=== PATIENT | male | born 1945 | race Caucasian/White ===

== ENCOUNTER → 2017-11-21 | Outpatient (CLI) | payer MEDICARE, MEDICAID ==
[2017-03-17 13:13] VITALS: BMI 36.3
[~2017-11-21] MED LIST: AGGRENOX PO; AMOX-559 PO; ASP325 PO; ASPI-1471 PO; ASPI-757 PO; ASPI81TA86 PO; ASPIRIN; AUG875 PO; AZIT-1 PO; BETA60LO TP; CARI250T10 PO; CHOL100058 PO; CHOL4PAC14; CIPR-344 PO; CLIN300C99 PO; CLON1 PO; CLOT15CR62 TP; DIA5 PO; DILT120T PO; DILT240C4 PO; DILT30TA63 PO; DIPH-1 PO; DRON5CAP14 PO; DULO30CA35 PO; DULO60CA7; ESOM40CA42 PO; FLUC150T40 PO; GABA-547 PO; HYDR-3074 PO; HYDR25CA13 PO; HYDR2TAB74 PO; HYDROCODONE PO; HYOS0.1224 SL; INSU100C10 SQ; LANI SUBQ; LEVO-85 PO; LEVO25TA61 PO; LEVO750T27 PO; LEVO750T44 PO; LIB PO; LISI-362 PO; LOR1 PO; LOR5/325 PO; LORA-1458 PO; LORA-630 PO; LORA-636 PO; LOSA50TA72 PO; METH-278 PO; METHY10 PO; METR-160 PO; MORIR15 PO; MORP-18 PO; MORP-51 PO; MORP100T36 PO; MULT1TAB54 PO; NEXIUM PO; NO ROUTINE MEDS; NOVOLOG SUBQ; OMEP-125 PO; OND4 PO; ONDA4TAB9 PO; ONDA4TAB97 PO; OXYC-865 PO; OXYC10TA67 PO; OXYC15TA79 PO; OXYC80TA52 PO; PROM-110 PO; PROM25SU8 PR; PROM50TA23 PO; SUCR1ORA17 PO; SULF1TAB24 PO; TAM4 PO; TIZA4CAP3 PO; TOPI-121 PO; TRAZ-156 PO; VENL50TA22 PO; WARF-18 PO; ZOLP-358 PO; [UNRECOGNIZED DRUG - CODE]; [UNRECOGNIZED DRUG - CODE] PO; [UNRECOGNIZED DRUG - CODE] PO; atarax PO; phenergan PO
== END ==
LOC: RESP 20:51
PROVIDERS: ATTEND Internal Medicine
DX: G47.34 Idiopathic sleep related nonobstructive alveolar hypoventilation (principal); G47.30 Sleep apnea, unspecified; G47.61 Periodic limb movement disorder; G47.21 Circadian rhythm sleep disorder, delayed sleep phase type

== ENCOUNTER → 2017-11-25 | Outpatient (CLI) | payer MEDICARE, MEDICAID ==
[2017-03-17 13:13] VITALS: BMI 36.3
--- NOTE | 2017-11-25 17:01 | RADIOLOGY IMAGING REPORT ---
FACILITY: [facility] PATIENT NAME: Buster Kaur : 1945 MR: [id number] V: [id number] EXAM DATE: ORDERING PHYSICIAN: ADOLFO GREEN TECHNOLOGIST: Location: [facility] - [place] Patient: Buster Kaur : 1945 Visit/Account:[id number] Date of Sevice: 11/25/2017 EXAMINATION: CT Chest Without Contrast 11/25/2017 11:00 AM HISTORY: Interstitial lung disease TECHNIQUE: Spiral scan was obtained through the chest without contrast. One of the following dose optimization techniques was utilized in the performance of this exam: Autom ated exposure control; adjustment of the mA and/or kV according to the patient's size; or use of an i terative reconstruction technique. Specific details can be referenced in the facility's radiology C T exam operational policy. COMPARISON STUDIES: Chest x-ray 03/16/2017. FINDINGS: Lungs / pleura: Irregular linear markings in both upper lobes primarily abdomen above the hilar level with some scattered mildly irregular nodular foci within these areas of involvement more discretely on the right measuring up to about 8 mm. Lesser linear markings in both bases may simply be some sca rring or atelectasis. There is no honeycombing. No traction bronchiectasis. No significant groundg lass process. No pleural fluid or thickening. Mediastinum / santosh: negative Heart / pericardium: negative Vessels: Atherosclerosis includes coronary disease. Musculoskeletal / Body wall: Degenerative changes in the spine. Mild levoscoliotic thoracic curvatur e. Lymph node assessment: Small mediastinal lymph nodes. No pathologic adenopathy. Lower neck: negative Upper abdomen: Ascites. Heterogeneous fatty density in the liver. IMPRESSION: 1. Irregular somewhat nodular infiltrates involving primarily upper lobes more on the right than the left. This could represent an inflammatory pneumonitis or possibly infectious process. 2. Heterogeneous fatty liver density and upper abdominal ascites. Report Dictated By: Elton Dewey MD at 11/25/2017 4:50 PM Report E-Signed By: Elton Dewey MD at 11/25/2017 4:57 PM [id number]
== END ==
LOC: CT 01:38
PROVIDERS: ATTEND Internal Medicine
DX: R91.8 Other nonspecific abnormal finding of lung field (principal); K76.0 Fatty (change of) liver, not elsewhere classified; R18.8 Other ascites
CPT/HCPCS: 71250; 94060; 94726; 94729

== ENCOUNTER 2017-12-02 15:19 | Emergency (ER) | payer MEDICARE, MEDICAID ==
[2017-03-17 13:13] VITALS: Ht 182.9 cm; Wt 108.9 kg
[~2017-12-02] VITALS: Ht 182.9 cm; Wt 108.9 kg
[~2017-12-02 15:19] MED LIST changes: -SULF-198 PO
[2017-12-02] MEDS ORDERED: NS(*) 0.9% 1000 ML BAG 1,000 ML IV ONE (15:22)
--- NOTE | 2017-12-02 15:27 | ER Report ---
History and Physical Time Seen By MD: 15:23 (SHAYY RONDON DO) HPI/ROS CHIEF COMPLAINT: weakness HISTORY OF PRESENT ILLNESS: PT was seen by Dr. Morin yesterday for evaluation of increased generalized weakness. Dr. Morin office sent over papers stating pt has been having diarrhea and urinary incontinence. Pt had blood work done yesterday in office but was hemolyzed; was supposed to return today for repeat draw but pt was too weak to get to office. EMS called and pt brought to ed. On patient arrival pt stats that he has not had urinary incontinence but has had "pasty thick urine'. Pt states that he has not had diarrhea recently but has a hx of diarrhea. PT states he is weak and has been having trouble walking due to generalized weakness. Pt feels unsteady and weak. No fevers. Pt does c/o of abdominal pain. Pt has hx of chronic abd pain and treats his pain with alcohol at night. Pt states he has seen pain management in past [place] and they are useless. REVIEW OF SYSTEMS: Constitutional: No fever, no chills. Eyes: No discharge. ENT: No sore throat. Cardiovascular: No chest pain, no palpitations. Respiratory: No cough, no shortness of breath. Gastrointestinal: + abdominal pain, no vomiting, + hx diarrhea Genitourinary: No hematuria, + thick pasty urine Musculoskeletal: No back pain. Skin: No rashes. Neurological: No headache. (SHAYY RONDON DO) Allergies: Coded Allergies: cephalexin (Verified Allergy, Severe, ANAPHYLAXIS, 12/02/17) NSAIDS (Non-Steroidal Anti-Inflamma (Verified Allergy, Intermediate, ) tizanidine (Verified Allergy, Unknown, 12/02/17) tramadol (Verified Allergy, Unknown, GI DISTRESS, 12/02/17) Home Meds Active Scripts Sulfamethoxazole/Trimet 800-160 Mg Tab (BACTRIM DS TABLET) 1 Each Tablet, 1 TAB PO Q12H, #14 MG 0 Refills TAKE ONE TABLET BY MOUTH EVERY TWELVE HOURS Prov:JAVY MILLAN MD 12/02/17 Diltiazem Hcl (DILTIAZEM 24HR CD) 240 Mg Cap.er.24h, 240 MG PO QDAY, #30 CAP.SR.24H Prov:MANUEL MARTÍNEZ DO 03/19/17 Lorazepam (LORAZEPAM) 1 Mg Tab, 1 MG PO BID, #30 TAB Prov:MANUEL MARTÍNEZ DO 03/19/17 Levothyroxine Sodium (LEVOTHYROXINE SODIUM) 25 Mcg Tablet, 0.025 MG PO QDAY@06, #30 TAB Prov:MANUEL MARTÍNEZ DO 03/19/17 Duloxetine Hcl (CYMBALTA) 30 Mg Capsule.dr, 30 MG PO QDAY, #30 CAP Prov:MANUEL MARTÍNEZ DO 03/19/17 Aspirin (ASPIRIN EC) 81 Mg Tablet.dr, 81 MG PO QDAY, #30 TAB Prov:MANUEL MARTÍNEZ DO 03/19/17 Reported Medications Insulin Glargine (LANTUS) 100 Unit/Ml Soln, 6 UNIT SUBQ HS, ML 02/17/17 Discontinued Reported Medications Losartan Potassium (LOSARTAN POTASSIUM) 50 Mg Tablet, 50 MG PO QDAY 02/17/17 Discontinued Scripts Warfarin Sodium (WARFARIN SODIUM) 5 Mg Tablet, 5 MG PO QDAY, #30 TAB Prov:MANUEL MARTÍNEZ DO 03/19/17 Past Medical/Surgical History PMhx: adenomatous intestinal polyps, hypercholesterolemia, hyothyroid, anxiety, afib, epilepsy, htn, dm, chronic pain, hx narcotic abuse, diarrhea Pshx: knee arthrosplasty, conolscopy with polyp removal (SHAYY RONDON DO) Reviewed Nurses Notes: Yes Old Medical Records Reviewed: Yes (SHAYY RONDON DO) Hx Smoking: Yes Smoking Status: Former Smoker Exposure to Second Hand Smoke?: Yes Hx Substance Use Disorder: No Hx Alcohol Use: Yes (2 Scotch whisky drinks a day (2 ounces each)) (SHAYY RONDON DO) Constitutional Vital Sign - Last 24 Hours 12/02/17 12/02/17 12/02/17 12/02/17 15:21 15:23 15:34 15:49 Temp 98.2 Pulse 90 95 93 Resp 14 15 15 B/P (MAP) 136/84 (101) 136/84 Pulse Ox 90 89 90 O2 Delivery Room Air 12/02/17 12/02/17 12/02/17 12/02/17 15:54 16:00 16:09 16:24 Pulse 91 90 90 Resp 16 16 13 B/P (MAP) 153/80 (104) Pulse Ox 93 91 91 12/02/17 16:29 Pulse 91 Resp 15 Pulse Ox 90 Intake and Output 12/02/17 12/02/17 12/03/17 15:00 23:00 07:00 Intake Total 1000 ml Balance 1000 ml (JAVY MILLAN MD) Physical Exam General Appearance: The patient is alert, has no immediate need for airway protection and no signs of toxicity. Eyes: Pupils equal and round no pallor or injection, EOMI ENT: no pharyngeal erythema or exudates, Mucous membranes are moist Respiratory: There are no retractions, lungs are clear to auscultation. Cardiovascular: Regular rate and rhythm. pulses are equal and symmetrical Gastrointestinal: Abdomen distended and tender diffusely, no masses, bowel sounds normal, +guarding, + ascites Neurological: Cranial nerves II-XII grossly intact, no sensory or motor loss Skin: Warm and dry, no rashes. Musculoskeletal: Neck is supple non tender, no vertebral tenderness Extremities are nontender, non swollen and have full range of motion. DIFFERENTIAL DIAGNOSIS: After history and physical exam differential diagnosis was considered for uti, dehydration, colitis, generalized weakness, cirrhosis (LAURORA,SHAYY V DO) Medical Decision Making Data Points Result Diagram: 12/02/17 1535 12/02/17 1535 Laboratory Hematology Test 12/02/17 15:35 12/02/17 17:04 Red Blood Count 3.96 M/uL (4.00-5.60) Mean Corpuscular Volume 108.1 fL (80.0-96.0) Mean Corpuscular Hemoglobin 38.3 pg (26.0-33.0) Mean Corpuscular Hemoglobin Concent 35.4 g/dL (32.0-36.0) Red Cell Distribution Width 14.9 % (11.5-14.5) Mean Platelet Volume 8.6 fL (7.2-11.1) Neutrophils (%) (Auto) 77.6 % (39.4-72.5) Lymphocytes (%) (Auto) 12.8 % (17.6-49.6) Monocytes (%) (Auto) 7.5 % (4.1-12.4) Eosinophils (%) (Auto) 1.4 % (0.4-6.7) Basophils (%) (Auto) 0.7 % (0.3-1.4) Nucleated RBC Relative Count (auto) 0.0 /100WBC Neutrophils # (Auto) 7.2 K/uL (2.0-7.4) Lymphocytes # (Auto) 1.2 K/uL (1.3-3.6) Monocytes # (Auto) 0.7 K/uL (0.3-1.0) Eosinophils # (Auto) 0.1 K/uL (0.0-0.5) Basophils # (Auto) 0.1 K/uL (0.0-0.1) Nucleated RBC Absolute Count (auto) 0.00 K/uL Peripheral Blood Smear Y/N Prothrombin Time 14.8 seconds (12.0-14.4) Prothromb Time International Ratio 1.15 Activated Partial Thromboplast Time 35 seconds (23-35) Sodium Level 130 mmol/L (137-145) Potassium Level 3.3 mmol/L (3.5-5.0) Chloride Level 97 mmol/L (98-107) Carbon Dioxide Level 21 mmol/L (22-30) Blood Urea Nitrogen 5 mg/dl (9-21) Creatinine 0.90 mg/dl (0.66-1.25) Glomerular Filtration Rate Calc > 60.0 Random Glucose 159 mg/dl (75-110) Calcium Level 8.4 mg/dl (8.4-10.2) Magnesium Level 1.6 mg/dl (1.7-2.2) Total Bilirubin 5.2 mg/dl (0.2-1.3) Aspartate Amino Transf (AST/SGOT) 139 U/L (0-35) Alanine Aminotransferase (ALT/SGPT) 64 U/L (0-56) Alkaline Phosphatase 549 U/L (0-126) Total Protein 7.9 gm/dl (6.3-8.2) Albumin 3.4 g/dl (3.5-5.0) Lipase 118 U/L (23-300) Serum Alcohol 35 mg/dl Urine Color Yellow Urine Clarity Turbid Urine pH 6.0 pH (4.8-9.5) Urine Specific [place] 1.018 Urine Protein 30 mg/dL (NEGATIVE) Urine Glucose (UA) Negative mg/dL (NEGATIVE) Urine Ketones Negative mg/dL (NEGATIVE) Urine Blood Small (NEGATIVE) Urine Nitrite Negative (NEGATIVE) Urine Bilirubin Negative (NEGATIVE) Urine Urobilinogen 4.0 mg/dL (0.2-1.9) Urine Leukocyte Esterase Large (NEGATIVE) Urine RBC 12 /HPF (0-2/HPF) Urine WBC 5018 /HPF (0-5/HPF) Urine WBC Clumps Many /HPF Urine Squamous Epithelial Cells Many /LPF (</=FEW) Urine Bacteria Negative /HPF (NONE-FEW) Urine Mucus None /HPF (NONE-FEW) Chemistry Test 12/02/17 15:35 12/02/17 17:04 White Blood Count 9.2 k/uL (4.5-11.0) Red Blood Count 3.96 M/uL (4.00-5.60) Hemoglobin 15.2 g/dL (14.0-18.0) Hematocrit 42.8 % (42.0-52.0) Mean Corpuscular Volume 108.1 fL (80.0-96.0) Mean Corpuscular Hemoglobin 38.3 pg (26.0-33.0) Mean Corpuscular Hemoglobin Concent 35.4 g/dL (32.0-36.0) Red Cell Distribution Width 14.9 % (11.5-14.5) Platelet Count 159 K/uL (150-450) Mean Platelet Volume 8.6 fL (7.2-11.1) Neutrophils (%) (Auto) 77.6 % (39.4-72.5) Lymphocytes (%) (Auto) 12.8 % (17.6-49.6) Monocytes (%) (Auto) 7.5 % (4.1-12.4) Eosinophils (%) (Auto) 1.4 % (0.4-6.7) Basophils (%) (Auto) 0.7 % (0.3-1.4) Nucleated RBC Relative Count (auto) 0.0 /100WBC Neutrophils # (Auto) 7.2 K/uL (2.0-7.4) Lymphocytes # (Auto) 1.2 K/uL (1.3-3.6) Monocytes # (Auto) 0.7 K/uL (0.3-1.0) Eosinophils # (Auto) 0.1 K/uL (0.0-0.5) Basophils # (Auto) 0.1 K/uL (0.0-0.1) Nucleated RBC Absolute Count (auto) 0.00 K/uL Peripheral Blood Smear Y/N Prothrombin Time 14.8 seconds (12.0-14.4) Prothromb Time International Ratio 1.15 Activated Partial Thromboplast Time 35 seconds (23-35) Glomerular Filtration Rate Calc > 60.0 Calcium Level 8.4 mg/dl (8.4-10.2) Magnesium Level 1.6 mg/dl (1.7-2.2) Total Bilirubin 5.2 mg/dl (0.2-1.3) Aspartate Amino Transf (AST/SGOT) 139 U/L (0-35) Alanine Aminotransferase (ALT/SGPT) 64 U/L (0-56) Alkaline Phosphatase 549 U/L (0-126) Total Protein 7.9 gm/dl (6.3-8.2) Albumin 3.4 g/dl (3.5-5.0) Lipase 118 U/L (23-300) Serum Alcohol 35 mg/dl Urine Color Yellow Urine Clarity Turbid Urine pH 6.0 pH (4.8-9.5) Urine Specific [place] 1.018 Urine Protein 30 mg/dL (NEGATIVE) Urine Glucose (UA) Negative mg/dL (NEGATIVE) Urine Ketones Negative mg/dL (NEGATIVE) Urine Blood Small (NEGATIVE) Urine Nitrite Negative (NEGATIVE) Urine Bilirubin Negative (NEGATIVE) Urine Urobilinogen 4.0 mg/dL (0.2-1.9) Urine Leukocyte Esterase Large (NEGATIVE) Urine RBC 12 /HPF (0-2/HPF) Urine WBC 5018 /HPF (0-5/HPF) Urine WBC Clumps Many /HPF Urine Squamous Epithelial Cells Many /LPF (</=FEW) Urine Bacteria Negative /HPF (NONE-FEW) Urine Mucus None /HPF (NONE-FEW) Coagulation Test 12/02/17 15:35 Prothrombin Time 14.8 seconds Prothromb Time International Ratio 1.15 Activated Partial Thromboplast Time 35 seconds Toxicology Test 12/02/17 15:35 Serum Alcohol 35 mg/dl Urinalysis Test 12/02/17 17:04 Urine Color Yellow Urine Clarity Turbid Urine pH 6.0 pH (4.8-9.5) Urine Specific [place] 1.018 Urine Protein 30 mg/dL (NEGATIVE) Urine Glucose (UA) Negative mg/dL (NEGATIVE) Urine Ketones Negative mg/dL (NEGATIVE) Urine Blood Small (NEGATIVE) Urine Nitrite Negative (NEGATIVE) Urine Bilirubin Negative (NEGATIVE) Urine Urobilinogen 4.0 mg/dL (0.2-1.9) Urine Leukocyte Esterase Large (NEGATIVE) Urine RBC 12 /HPF (0-2/HPF) Urine WBC 5018 /HPF (0-5/HPF) Urine WBC Clumps Many /HPF Urine Squamous Epithelial Cells Many /LPF (</=FEW) Urine Bacteria Negative /HPF (NONE-FEW) Urine Mucus None /HPF (NONE-FEW) (JAVY MILLAN MD) ED Course/Re-evaluation ED Course [address] Millan pending CT read and UA. I have replaced magnesium and potassium. I suspect pt may need admission for ascites, uti and weakness but will need to await labs and ct. Decision to Disposition Date: Dec 02, 2017 Decision to Disposition Time: 17:00 (SHAYY RONDON DO) ED Course 12/02/2017 6:01:16 pm leading his antibiotics at this time I went again and had a long discussion with both the patient and spouse of my medical recommendation that he be admitted to the hospital for his urinary tract infection and weakness. He adamantly refuses to be admitted at this time. This conversation was witnessed by the patient's nurse Russel Wilburn. I did state I will call prescription for antibiotics in for him and that he should follow up tomorrow with Dr. Juanito Altman and that if at any point in time he changes his mind about admission he should return to the emergency department. Patient has agreed to sign AMA form. Decision to Disposition Date: Dec 02, 2017 Decision to Disposition Time: 18:07 Turned Over 12/02/2017 5:28:59 pm accepts care of the patient from Dr. So at 1700. Briefly this is a 72-year-old male who is a chronic alcoholic with what appears to be alcoholic cirrhosis. He is been having increased weakness over the past few days with history of recent falls. Also complaining of difficulty with urination he also has a history of chronic abdominal pain. Workup in the emergency department shows the patient does have ascites by CT scan as well as what appears to be a nodular liver indicating cirrhosis. Patient does have elevated LFTs and bilirubin. Urinalysis is positive for leukocyte esterase, large microscopic white blood cells and red cells negative bacteria large epithelial cells and negative nitrites. Given the patient's symptoms will empirically treat for urinary tract infection pending urinary culture results. Patient further is also having unsteady gait which could indicate [place]ie related to the patient's alcohol use and abuse. Plan will be to give 100 mg of IV thiamine. Had about a 5 minute discussion with the patient on my desire to admit him medically for both treatment of urinary tract infection as well as for her weakness and physical therapy evaluation. Patient is against this time I did order some IV antibiotics to treat the urinary tract infection and said that I would be back in once complete to try to convince him to stay. Patient's is also pushing for the patient to stay in the hospital. Patient seems as if he is adamant against possible admission at this time. If that is the case I will have him sign out against medical advice we will put in a prescription for Bactrim for 7 days to treat the urinary tract infection and will have him follow -up with his primary care provider in 24 hours. We'll attempt to contact patient 's primary care provider to discuss his ER course and likely that he will sign out against medical advice. (JAVY MILLAN MD) Depart Departure Latest Vital Signs Vital Signs Date Time Temp Pulse Resp B/P (MAP) Pulse Ox O2 Delivery O2 Flow Rate FiO2 12/02/17 16:29 91 15 90 12/02/17 16:00 153/80 (104) 12/02/17 15:23 98.2 Room Air (JAVY MILLAN MD) Impression: Primary Impression: Urinary tract infection Additional Impressions: Weakness Ascites due to alcoholic cirrhosis Electrolyte abnormality Condition: Condition Unchanged (signed out ama) Disposition: AGAINST MED ADV / DISCONT CARE New Scripts Sulfamethoxazole/Trimet 800-160 Mg Tab (BACTRIM DS TABLET) 1 Each Tablet 1 TAB PO Q12H, #14 MG 0 Refills TAKE ONE TABLET BY MOUTH EVERY TWELVE HOURS Prov: JAVY MILLAN MD 12/02/17 Patient Instructions: Urinary Tract Infection in Men (DC), Weakness (ED) Additional Instructions: If you change your mind at any time regarding your admission tonight you should return to the emergency department immediately. If he develop any new or concerning symptoms he should be reevaluated by her primary care provider in the emergency department. You were called in a prescription for antibiotics for a urinary tract infection please pick them up and initiate them tomorrow and take as directed until complete. Also call Dr. Morin's office tomorrow to schedule follow-up within 24 hours. Problem Qualifiers Primary Impression: Urinary tract infection Urinary tract infection type: site unspecified Hematuria presence: without hematuria Qualified Codes: N39.0 - Urinary tract infection, site not specified SHAYY RONDON DO Dec 02, 2017 15:27 JAVY MILLAN MD Dec 02, 2017 17:39
[2017-12-02] MEDS ORDERED: IOPAMIDOL 76% 75 ML INFUS BTL 75 ML ONE (15:57)
[2017-12-02] MEDS ORDERED: NS 0.9% 50 ML VIAL 50 ML ONE (15:57)
[2017-12-02 16:04] LABS: INR 1.15
[2017-12-02 16:06] LABS: PLATELET COUNT, AUTOMATED 159 K/uL (150-450)
[2017-12-02] MEDS ORDERED: LR(*) 1000 ML BAG 1,000 ML IV ONE (16:30)
--- NOTE | 2017-12-02 17:07 | RADIOLOGY IMAGING REPORT ---
FAC[facility] PATIENT NAME: Buster Kaur : 1945 MR: [id number] V: [id number] EXAM DATE: ORDERING PHYSICIAN: SHAYY RONDON TECHNOLOGIST: Location: [facility] Patient: Buster Kaur : 1945 Visit/Account:[id number] Date of Sevice: 12/02/2017 EXAMINATION: CT abdomen and pelvis with IV contrast HISTORY: Abdominal pain. Diarrhea. TECHNIQUE: Axial CT images of the abdomen and pelvis were obtained with IV contrast, with coronal a nd sagittal 2D reconstructed images. One of the following dose optimization techniques was utilized in the performance of this exam: Autom ated exposure control; adjustment of the mA and/or kV according to the patient's size; or use of an i terative reconstruction technique. Specific details can be referenced in the facility's radiology C T exam operational policy. Contrast: 75 mL of IV [id number]. COMPARISON: 10/02/2015. FINDINGS: Liver: Marked hepatic steatosis with heterogeneous liver attenuation. No discrete focal liver mass b y CT. The liver margin has a mildly lobular contour which has progressed since the prior CT and could relate to underlying cirrhosis. Gallbladder and bile ducts: Unremarkable by CT. No calcified gallstones. No bile duct dilatation. Spleen: The spleen is borderline enlarged, measuring 14 cm in length. The spleen previously measured 12.5 cm. The spleen enhances normally. Pancreas: Negative. Adrenal glands: Negative. Kidneys: Negative. No hydronephrosis or urinary calculi. Bowel and peritoneum: The small bowel and colon are normal in caliber. No bowel obstruction. No loca lized bowel wall thickening. Unremarkable appendix in the right lower abdomen. Moderate volume of abd ominal ascites. No free intraperitoneal air. Small hiatal hernia. Pelvic structures: Negative. Lymph node assessment: Negative. Vessels: Moderate vascular calcifications. Normal caliber abdominal aorta. The IVC is patent. The he patic veins, portal veins, and portal tributaries are patent. Musculoskeletal: No acute osseous findings. Multilevel degenerative changes throughout the spine. Body wall: Negative. Lung bases: Negative. IMPRESSION: 1. Marked hepatic steatosis. The liver has a mild lobulated contour which has progressed and could be compatible with underlying cirrhosis. There is borderline splenomegaly with moderate abdominal ascit es. 2. No other acute intra-abdominal findings. 3. The small bowel and colon are normal in caliber. 4. Small hiatal hernia. Report Dictated By: Jakob Mackey MD at 12/02/2017 4:57 PM Report E-Signed By: Jakob Mackey MD at 12/02/2017 5:03 PM WSN:[id number]
[2017-12-02] MEDS ORDERED: POTASSIUM CHL 20 MEQ TABCR PO ONE (17:15)
[2017-12-02] MEDS ORDERED: MAGNESIUM SUL* 2 GM/50 ML IVPB 50 ML IVPB ONE (17:15)
[2017-12-02] MEDS ORDERED: THIAMINE HCL 200 MG/2 ML INJ IVP ONE (17:25)
[2017-12-02] MEDS ORDERED: LEVOFLOXACIN/D5W 750 MG/150 ML 150 ML IVPB ONE (17:30)
[2017-12-02] MEDS ORDERED: SULF-198 PO (18:06)
== END 2017-12-02 19:47 | disposition left against medical advice (07) ==
LOC: ER 15:31
DX: N39.0 Urinary tract infection, site not specified (principal); R79.89 Other specified abnormal findings of blood chemistry; R53.1 Weakness; K70.31 Alcoholic cirrhosis of liver with ascites
CPT/HCPCS: 74177; 81001; 82140; 83690; 83735; 84443; 85025; 85610; 85730; 87088; 96361; 96365; 96366; 96368; 99284; A9270; G0480; J1956; J3411; J3475; J7030; J7050; J7120; Q9967; 80320; 82040; 82247; 82310; 82374; 82435; 82565; 82947; 84075; 84132; 84155; 84295; 84450; 84460; 84520; 87077; 87186

== ENCOUNTER → 2017-12-02 | Outpatient (CLI) | payer MEDICARE, MEDICAID ==
[2017-03-17 13:13] VITALS: BMI 36.3
[~2017-12-02] MED LIST changes: +SULF-198 PO
== END ==
LOC: AMB 14:58
PROVIDERS: ATTEND Nurse Practitioner
DX: Z76.89 Persons encountering health services in other specified circumstances (principal)
CPT/HCPCS: A0425; A0429

== ENCOUNTER 2017-12-15 16:39 | Inpatient (IN) | payer MEDICARE, MEDICAID ==
[~2017-12-15] VITALS: Ht 182.9 cm; Wt 124.3 kg
[~2017-12-15 16:39] MED LIST changes: -HYOS0.1225 PO; -SPIR25TA78 PO; -VITA-175 PO; +WARF-18 PO; -WARF5TAB23 PO
[2017-12-15] MEDS ORDERED: HYOS0.1225 PO (16:47)
--- NOTE | 2017-12-15 16:47 | ER Report ---
History and Physical Time Seen By MD: 16:46 Hx. of Stated Complaint: "BEEN ALTERED TODAY". 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 Patient states that over the last 3 days he's noticed an increase in yellowing of his skin. Patient was seen here on December 02 treated for urinary tract infection. He did follow up with Dr. Morin last week and no medication changes or changes in plan of care. Patient states that over the last several days he's had yellowish, loose stools too, prior to this he was constipated, his gave him stool softeners. Patient also states that he's had decreased urinary output the last several days the urine color is very dark. Patient denies chest pain or shortness of breath, aches, chills, nausea, vomiting. Patient states he does have continued chronic abdominal pain. Upon arrival patient is asking for pain medications. Patient also states that his last drink was about 1:00pm today a short glass of vodka. REVIEW OF SYSTEMS: Constitutional: No fever, no chills. Eyes: No discharge. ENT: No sore throat. Cardiovascular: No chest pain, no palpitations. Respiratory: No cough, no shortness of breath. Gastrointestinal: As above. Genitourinary: As above. Musculoskeletal: No back pain. Skin: As above. Neurological: No headache. (HENRY SALAZARPDEISY) Allergies: Coded Allergies: cephalexin (Verified Allergy, Severe, ANAPHYLAXIS, 12/02/17) NSAIDS (Non-Steroidal Anti-Inflamma (Verified Allergy, Intermediate, ) tizanidine (Verified Allergy, Unknown, 12/02/17) tramadol (Verified Allergy, Unknown, GI DISTRESS, 12/02/17) Home Meds Active Scripts Vitamin B Complex (B COMPLEX) 1 Each Tablet, 1 EACH PO DAILY, #30 TAB 1 Refill Prov:ARNULFO ALCANTARA MD 12/17/17 Spironolactone (SPIRONOLACTONE) 25 Mg Tablet, 25 MG PO BID, #60 TAB 0 Refills Prov:ARNULFO ALCANTARA MD 12/17/17 Diltiazem Hcl (DILTIAZEM 24HR CD) 240 Mg Cap.er.24h, 240 MG PO QDAY, #30 CAP.SR.24H Prov:MAURICIOMANUEL DE LA GARZA 03/19/17 Lorazepam (LORAZEPAM) 1 Mg Tab, 1 MG PO BID, #30 TAB Prov:MAURICIOMANUEL DE LA GARZA 03/19/17 Levothyroxine Sodium (LEVOTHYROXINE SODIUM) 25 Mcg Tablet, 0.025 MG PO QDAY@06, #30 TAB Prov:MAURICIOMANUEL DE LA GARZA 03/19/17 Aspirin (ASPIRIN EC) 81 Mg Tablet., 81 MG PO QDAY, #30 TAB Prov:MAURICIOMANUEL DO 03/19/17 Reported Medications Hyoscyamine Sulfate (HYOSCYAMINE SULFATE) 0.125 Mg Tablet, 0.125 MG PO 12/15/17 Insulin Glargine (LANTUS) 100 Unit/Ml Soln, 6 UNIT SUBQ HS, ML 02/17/17 Discontinued Scripts Sulfamethoxazole/Trimet 800-160 Mg Tab (BACTRIM DS TABLET) 1 Each Tablet, 1 TAB PO Q12H, #14 MG 0 Refills TAKE ONE TABLET BY MOUTH EVERY TWELVE HOURS Prov:JAVY MOMIN MD 12/02/17 Duloxetine Hcl (CYMBALTA) 30 Mg Capsule., 30 MG PO QDAY, #30 CAP Prov:MANUEL MARTÍNEZ 03/19/17 Past Medical/Surgical History Patient has a past medical and surgical history of 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 (HENRY SALAZAR-KAUSHIK) Reviewed Nurses Notes: Yes (HENRY SALAZAR) Hx Smoking: Yes Smoking Status: Former Smoker Exposure to Second Hand Smoke?: Yes Hx Substance Use Disorder: No Hx Alcohol Use: Yes (2 Scotch whisky drinks a day (2 ounces each)) (HENRY SALAZAR-KAUSHIK) Constitutional Vital Sign - Last 24 Hours 12/15/17 12/15/17 12/15/17 12/15/17 16:40 16:43 16:54 17:09 Temp 98.3 Pulse 83 82 82 Resp 18 14 14 B/P (MAP) 151/76 151/76 (101) Pulse Ox 94 98 93 O2 Delivery Room Air 12/15/17 12/15/17 12/15/17 12/15/17 17:24 17:29 17:30 17:44 Pulse 80 78 ??? Resp 13 11 B/P (MAP) 138/74 (95) Pulse Ox 95 93 12/15/17 12/15/17 12/15/17 12/15/17 17:46 17:59 18:00 18:14 Pulse 83 83 Resp 12 12 B/P (MAP) 167/91 (116) 153/85 (107) Pulse Ox 93 93 12/15/17 12/15/17 12/15/17 12/15/17 18:29 18:30 18:44 18:59 Pulse 84 80 83 Resp 12 13 13 B/P (MAP) 148/79 (102) Pulse Ox 92 93 94 (ALYSIA MOY MD) Physical Exam General Appearance: The patient is alert, has no immediate need for airway protection and no signs of toxicity. Eyes: Pupils equal and round no pallor or injection. Scleral icterus. EOM's intact. ENT, Mouth: Mucous membranes are moist. Geographic tongue. Respiratory: There are no retractions, lungs are clear to auscultation, but diminished in the upper armendariz.. Cardiovascular: Regular rate and rhythm, no murmurs, clicks or rubs. Gastrointestinal: Abdomen is very round, tender along costal margin bilaterally , but worse on the right. No masses, distant, hypoactive bowel sounds with tinkles. Neurological: Alert and oriented 4. Moving all extremities. Following all commands. No focal neuro deficits. Skin: Warm and dry, no rashes. Systemic jaundice. Musculoskeletal: Neck is supple non tender. Extremities 1+ pitting edema to the lower extremities up to the calf. Full range of motion. DIFFERENTIAL DIAGNOSIS: After history and physical exam differential diagnosis was considered for ascites, jaundice, liver failure, kidney failure, cirrhosis of the liver. (HENRY SALAZAR-) Medical Decision Making Data Points Result Diagram: 12/16/1745 12/16/17 0545 Laboratory Hematology Test 12/15/17 17:14 12/15/17 17:24 Prothrombin Time 15.2 seconds (12.0-14.4) Prothromb Time International Ratio 1.19 Activated Partial Thromboplast Time 37 seconds (23-35) Amylase Level 66 U/L (0-110) Lipase 99 U/L (23-300) Urine Color Sima Urine Clarity Clear Urine pH 6.0 pH (4.8-9.5) Urine Specific [place] 1.015 Urine Protein Negative mg/dL (NEGATIVE) Urine Glucose (UA) Negative mg/dL (NEGATIVE) Urine Ketones Negative mg/dL (NEGATIVE) Urine Blood Negative (NEGATIVE) Urine Nitrite Negative (NEGATIVE) Urine Bilirubin Small (NEGATIVE) Urine Urobilinogen 4.0 mg/dL (0.2-1.9) Urine Leukocyte Esterase Negative (NEGATIVE) Urine RBC <1 /HPF (0-2/HPF) Urine WBC 4 /HPF (0-5/HPF) Urine Squamous Epithelial Cells None /LPF (NONE-FEW) Urine Bacteria Negative /HPF (NONE-FEW) Urine Mucus None /HPF (NONE-FEW) Chemistry Test 12/15/17 17:14 12/15/17 17:24 Prothrombin Time 15.2 seconds (12.0-14.4) Prothromb Time International Ratio 1.19 Activated Partial Thromboplast Time 37 seconds (23-35) Amylase Level 66 U/L (0-110) Lipase 99 U/L (23-300) Urine Color Sima Urine Clarity Clear Urine pH 6.0 pH (4.8-9.5) Urine Specific [place] 1.015 Urine Protein Negative mg/dL (NEGATIVE) Urine Glucose (UA) Negative mg/dL (NEGATIVE) Urine Ketones Negative mg/dL (NEGATIVE) Urine Blood Negative (NEGATIVE) Urine Nitrite Negative (NEGATIVE) Urine Bilirubin Small (NEGATIVE) Urine Urobilinogen 4.0 mg/dL (0.2-1.9) Urine Leukocyte Esterase Negative (NEGATIVE) Urine RBC <1 /HPF (0-2/HPF) Urine WBC 4 /HPF (0-5/HPF) Urine Squamous Epithelial Cells None /LPF (NONE-FEW) Urine Bacteria Negative /HPF (NONE-FEW) Urine Mucus None /HPF (NONE-FEW) Coagulation Test 12/15/17 17:14 Prothrombin Time 15.2 seconds Prothromb Time International Ratio 1.19 Activated Partial Thromboplast Time 37 seconds Urinalysis Test 12/15/17 17:24 Urine Color Sima Urine Clarity Clear Urine pH 6.0 pH (4.8-9.5) Urine Specific [place] 1.015 Urine Protein Negative mg/dL (NEGATIVE) Urine Glucose (UA) Negative mg/dL (NEGATIVE) Urine Ketones Negative mg/dL (NEGATIVE) Urine Blood Negative (NEGATIVE) Urine Nitrite Negative (NEGATIVE) Urine Bilirubin Small (NEGATIVE) Urine Urobilinogen 4.0 mg/dL (0.2-1.9) Urine Leukocyte Esterase Negative (NEGATIVE) Urine RBC <1 /HPF (0-2/HPF) Urine WBC 4 /HPF (0-5/HPF) Urine Squamous Epithelial Cells None /LPF (NONE-FEW) Urine Bacteria Negative /HPF (NONE-FEW) Urine Mucus None /HPF (NONE-FEW) (ALYSIA MOY MD) EKG/Imaging Imaging PATIENT NAME: Buster Kaur : 1945 MR: [id number] V: [id number] EXAM DATE: ORDERING PHYSICIAN: HENRY SALAZAR TECHNOLOGIST: Location: [facility] - [place] Patient: Buster Kaur : 1945 Visit/Account:[id number] Date of Sevice: 12/15/2017 Exam type: CHEST PA AND LAT History: abdominal pain, jaundiced Comparison: March 16, 2017. Findings: Patient is rotated towards the right. Chronic interstitial changes are again noted throughout the lungs. There is mild increased peribronchial thickening. Mild fullness of the pulmonary vascular markings. The cardiac silhouette is normal in size. There are mild spondylotic changes thoracic spine IMPRESSION: 1. Mild fullness of the pulmonary vascular markings which may be secondary to mild pulmonary edema. 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 A history of physical were obtained. Differential diagnoses were considered. An IV is started. A CBC, CMP, amylase, lipase, PT and INR, PTT, ammonia and UA were obtained. CBC showing an increase in his MCV at 111.7, chemistry showing sodium of 123, total bilirubin up from his previous visit now 11.4, AST 191, ALT 74, alkaline phosphatase 669. Urine showing bilirubin. Two-view chest x-ray showing mild pulmonary edema. I did review these results with the patient and did tell him that the changes in his lab studies from his last visit is concerning and I feel that he needs to be admitted to the hospital. The patient and his are in agreement with admission to the hospital. I did speak with Dr. Bull, as noted below and he is agreed to admit the patient into his services. The patient and his had no other questions or concerns at this time and were admitted to the medical surgical floor. 12/15/2017 6:56:59 pm I did speak with Dr. Bull, the hospitalist and discussed the patient's case with him and he agreed to admit the patient to his services for hyponatremia as well as jaundice. Decision to Disposition Date: Dec 15, 2017 Decision to Disposition Time: 18:54 (HENRY SALAZAR INSTANT POWDER SUPERVISOR-BC) Depart Departure Latest Vital Signs Vital Signs Date Time Temp Pulse Resp B/P (MAP) Pulse Ox O2 Delivery O2 Flow Rate FiO2 12/15/17 18:59 83 13 94 12/15/17 18:30 148/79 (102) 12/15/17 16:40 98.3 Room Air (ALYSIA MOY MD) Impression: Primary Impression: Hyponatremia Additional Impressions: Jaundice Hyperbilirubinemia Pulmonary edema Condition: Condition Unchanged Disposition: Admitted from ER New Scripts Vitamin B Complex (B COMPLEX) 1 Each Tablet 1 EACH PO DAILY, #30 TAB 1 Refill Prov: ARNULFO ALCANTARA MD 12/17/17 Spironolactone (SPIRONOLACTONE) 25 Mg Tablet 25 MG PO BID, #60 TAB 0 Refills Prov: ARNULFO ALCANTARA MD 12/17/17 RECOVERY ROOM NURSE/PA consult with MD: Verbally (ALYSIA MOY MD) Problem Qualifiers Additional Impressions: Pulmonary edema Chronicity: chronic Qualified Codes: J81.1 - Chronic pulmonary edema HENRY SALAZAR- Dec 15, 2017 16:47 ALYSIA MOY MD Dec 15, 2017 17:11
[2017-12-15 17:24] LABS: PLATELET COUNT, AUTOMATED 194 K/uL (150-450)
[2017-12-15 17:34] LABS: INR 1.19
--- NOTE | 2017-12-15 18:05 | RADIOLOGY IMAGING REPORT ---
FACILITY: [facility] PATIENT NAME: Buster Kaur : 1945 MR: [id number] V: [id number] EXAM DATE: ORDERING PHYSICIAN: HENRY SALAZAR TECHNOLOGIST: Location: [facility] Patient: Buster Kaur : 1945 Visit/Account:[id number] Date of Sevice: 12/15/2017 Exam type: CHEST PA AND LAT History: abdominal pain, jaundiced Comparison: March 16, 2017. Findings: Patient is rotated towards the right. Chronic interstitial changes are again noted throughout the yuridia ngs. There is mild increased peribronchial thickening. Mild fullness of the pulmonary vascular blanca ings. The cardiac silhouette is normal in size. There are mild spondylotic changes thoracic spine IMPRESSION: 1. Mild fullness of the pulmonary vascular markings which may be secondary to mild pulmonary edema. Chronic initial changes noted throughout the lungs Mild increased peribronchial thickening which could represent an acute peribronchial inflammatory pro cess Report Dictated By: Sparkle Estrada MD at 12/15/2017 5:59 PM Report E-Signed By: Sparkle Estrada MD at 12/15/2017 6:01 PM WSN:[email or web address]
[2017-12-15 20:00] VITALS: BP 147/81
[2017-12-15] MEDS ORDERED: FUROSEMIDE 40 MG/4 ML VIAL IVP ONE (21:30)
[2017-12-15] MEDS ORDERED: ONDANSETRON 4 MG/2 ML VIAL IVP PRN (21:30)
[2017-12-15] MEDS ORDERED: INSULIN HUM REG 100 UN/ML 3 ML VIAL SC PRN (21:30)
[2017-12-15] MEDS: LORazepam 1 MG TAB PO SCH (22:24)
--- NOTE | 2017-12-15 22:41 | History & Physical ---
History of Present Illness Chief Complaint Yellow discoloration of skin and generalized weakness History of Present Illness Mr. Kaur is a 72-year-old male with PMH of DM-II on Lantus 6 units/day, A.fib on Diltiazem, Liver Cirrhosis likely from Alcohol abuse and he was not on Diuretics who presents to the emergency department via EMS for changes in his skin color. Patient states that over the last 3 days he's noticed an increase in yellowing of his skin. Patient was seen here on December 02 treated for urinary tract infection. He did follow up with Dr. Avalos last week and no medication changes or changes in plan of care. Patient states that over the last several days he's had yellow discoloration of his skin. Patient stated that he has had chronic abdominal pain and abdominal distention.His gave him stool softeners for his constipation and he developed loose stools . Patient also mentioned that he has had decreased urinary output for the last several days and the urine color was very dark. Patient denied any chest pain, shortness of breath, aches, chills, nausea or vomiting. Patient also stated that his last drink was about 1:00pm today a short glass of vodka. I discussed the case with the ER-MD and admitted the patient for further evaluation and management. His initial labs revealed high LFT's AST>KBW=918/74, High AP 669 and total Bilirubin 11.4. His Na level was low 123. He is hemodynamically stable and feels fatigued. History Home Meds Active Scripts Diltiazem Hcl (DILTIAZEM 24HR CD) 240 Mg Cap.er.24h, 240 MG PO QDAY, #30 CAP.SR.24H Prov:MANUEL MARTÍNEZ DO 03/19/17 Lorazepam (LORAZEPAM) 1 Mg Tab, 1 MG PO BID, #30 TAB Prov:MANUEL MARTÍNEZ DO 03/19/17 Levothyroxine Sodium (LEVOTHYROXINE SODIUM) 25 Mcg Tablet, 0.025 MG PO QDAY@06, #30 TAB Prov:MANUEL MARTÍNEZ DO 03/19/17 Aspirin (ASPIRIN EC) 81 Mg Tablet., 81 MG PO QDAY, #30 TAB Prov:MANUEL MARTÍNEZ DO 03/19/17 Reported Medications Hyoscyamine Sulfate (HYOSCYAMINE SULFATE) 0.125 Mg Tablet, 0.125 MG PO 12/15/17 Insulin Glargine (LANTUS) 100 Unit/Ml Soln, 6 UNIT SUBQ HS, ML 02/17/17 Discontinued Scripts Sulfamethoxazole/Trimet 800-160 Mg Tab (BACTRIM DS TABLET) 1 Each Tablet, 1 TAB PO Q12H, #14 MG 0 Refills TAKE ONE TABLET BY MOUTH EVERY TWELVE HOURS Prov:JAVY MOMIN MD 12/02/17 Duloxetine Hcl (CYMBALTA) 30 Mg Capsule., 30 MG PO QDAY, #30 CAP Prov:MANUEL MARTÍNEZ DO 03/19/17 Allergies: Coded Allergies: cephalexin (Verified Allergy, Severe, ANAPHYLAXIS, 12/02/17) NSAIDS (Non-Steroidal Anti-Inflamma (Verified Allergy, Intermediate, ) tizanidine (Verified Allergy, Unknown, 12/02/17) tramadol (Verified Allergy, Unknown, GI DISTRESS, 12/02/17) Patient History: FH: heart attack FATHER FHx: skin cancer MOTHER Hx Smoking: Yes Smoking Status: Former Smoker Exposure to Second Hand Smoke?: Yes Caffeine Intake: Coffee Caffeine/Cups Per Day: 1 cup Hx Alcohol Use: Yes (3 Scotch whisky drinks a day (2 ounces each)) Hx Substance Use Disorder: No Review of Systems Constitutional: Weight Gain, No Fever, No Weight Loss, No Chills, No Night Sweats Neurological: Weakness, No Syncope, No Confusion, No Dizziness Eyes: No Vision Change ENT: No Sinus Congestion, No Sore Throat Cardiovascular: No Chest Pain, No Palpitations Respiratory: Shortness of Breath, No Cough, No Wheezing Gastrointestinal: Nausea, No Vomiting, No Diarrhea, No Dysphagia, No Constipation, No Early Satiety, No Hematemesis, No Hematochezia, No Melena, No Abdominal Pain Genitourinary: No Dysuria, No Hematuria Musculoskeletal: No Pain, No Sprain, No Strain Psychiatric: No Depression, No Anxiety Exam Vital Signs Vital Signs Date Time Temp Pulse Resp B/P (MAP) Pulse Ox O2 Delivery O2 Flow Rate FiO2 12/15/17 20:21 94 12/15/17 20:00 98.6 85 18 147/81 (103) Room Air General Appearance: Alert, Awake, No Acute Distress, Afebrile Neuro: No Gross deficits Eyes: PERRLA (positive Jaundice and icteric sclera) ENT: Normal Neck: No Masses Cardiovascular: Normal Rhythm & Peripheral Pulses Respiratory: No Respiratory Distress GI: Abd Soft and Non-Tender (distended abdomen with ascitis, No R/G) Extremities: Soft and Non Tender, Warm Integumentary: Generalized Fragile Skin Psych: Alert & Oriented X3 Medical Decision Making Data Points Result Diagram: 12/15/17171312/15/171713 Assessment and Plan Problems: (1) Hyponatremia Status: Acute Assessment & Plan: His low Na state is due to his underlying liver cirrhosis I will use Lasix IV 40mg po bid I will also use Aldactone 50mg in am I will repeat his CMP in am I will check his TSH level (2) Jaundice Status: Acute Assessment & Plan: 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 he is an active drinker. I will start him on Lasix 40mg IV bid I will start him on Aldactone 50mg in am I will repeat his CMP and Ammonia level I will arrange US guided Paracentesis by IR in am for symptomatic relief. (3) Type 2 diabetes mellitus treated with insulin Status: Chronic Assessment & Plan: I will start him on Diabetic diet 1800 Endy ADA Accuchecks q AC and HS Moderate Sliding scale coverage with Regular Insulin I will continue his Lantus 6 Units daily (4) History of atrial fibrillation Status: Resolved Assessment & Plan: I will resume his Diltiazem for his A.fib. He is currently in [facility] Venous Access Medical Necessity for Access: IV Access, Medication Administration Time Spent on Plan of Care: < 30 min Copies to: LIDIA AVALOS DO Venous Thromboembolism VTE Risk Physician Assess for VTE Risk: Yes Patient's VTE Risk: High VTE Diagnostic Test 2 Days Prior to Admit: No Antithrombotics Is Pt On Any Antithrombotics?: No Exam Sepsis Risk: No Definite Risk OZZY BUCKLEY MD Dec 15, 2017 22:41
[2017-12-16] MEDS ORDERED: ENOXAPARIN 40 MG/0.4ML SYR SC ONE (00:10)
[2017-12-16 00:39] VITALS: BP 131/76
[2017-12-16 03:06] VITALS: BP 135/85
[2017-12-16 05:57] LABS: PLATELET COUNT, AUTOMATED 185 K/uL (150-450)
[2017-12-16] MEDS: LEVOTHYROXINE SOD 0.025 MG TAB PO SCH (06:02)
[2017-12-16] MEDS: PANTOPRAZOLE SOD 40 MG TABEC PO SCH (06:03)
[2017-12-16] MEDS: SPIRONOLACTONE 25 MG TAB PO SCH (06:03)
[2017-12-16] MEDS: FUROSEMIDE 40 MG/4 ML VIAL IVP SCH ×2 (06:28→14:00)
[2017-12-16] MEDS ORDERED: FUROSEMIDE 40 MG/4 ML VIAL IVP SCH (07:00)
[2017-12-16 08:20] VITALS: BP 136/83
[2017-12-16] MEDS: ASPIRIN 81 MG CHEW PO SCH (08:24)
[2017-12-16] MEDS: FOLIC ACID 1 MG TAB PO SCH (08:24)
[2017-12-16] MEDS: THIAMINE HCL 100 MG TAB PO SCH (08:25)
[2017-12-16] MEDS: CYANOCOBALAMIN 1000 MCG TAB PO SCH (08:25)
[2017-12-16 08:31] VITALS: Ht 182.9 cm; Wt 124.3 kg
[2017-12-16] MEDS: DILTIAZEM CD 120 MG CAPCR PO SCH (10:03)
--- NOTE | 2017-12-16 10:13 | Hospitalist Progress Note ---
Subjective Progress Notes Subjective Mr. Kaur is a 72-year-old male with PMH of DM-II on Lantus 6 units/day, A.fib on Diltiazem, Liver Cirrhosis likely from Alcohol abuse and he was not on Diuretics who presents to the emergency department via EMS for changes in his skin color. Patient states that over the last 3 days he's noticed an increase in yellowing of his skin. Patient was seen here on December 02 treated for urinary tract infection. He did follow up with Dr. Avalos last week and no medication changes or changes in plan of care. Patient states that over the last several days he's had yellow discoloration of his skin. Patient stated that he has had chronic abdominal pain and abdominal distention.His gave him stool softeners for his constipation and he developed loose stools . Patient also mentioned that he has had decreased urinary output for the last several days and the urine color was very dark. Patient denied any chest pain, shortness of breath, aches, chills, nausea or vomiting. Patient also stated that his last drink was about 1:00pm today a short glass of vodka. I discussed the case with the ER-MD and admitted the patient for further evaluation and management. His initial labs revealed high LFT's AST>ZIK=168/74, High AP 669 and total Bilirubin 11.4. His Na level was low 123. He is hemodynamically stable and feels fatigued. 12/16: He still complaint of abdominal pain and distention. His Na level is 124, Ammonia is 19,LFT's are slightly down and albumin is 2.9. He is afebrile, hemodynamically and medically stable. Patient Complains of: Neurological: No: Weakness, Dizziness Cardiovascular: No: Chest Pain, Palpitations Respiratory: No: Cough, Congestion, Shortness of Breath Gastrointestinal: No Nausea, No Vomiting Genitourinary: No Dysuria, No Hematuria Musculoskeletal: No: Pain, Sprain, Strain Physical Exam Vital Signs Date Time Temp Pulse Resp B/P (MAP) Pulse Ox O2 Delivery O2 Flow Rate FiO2 12/16/17 03:06 98.3 82 20 135/85 (102) 95 Nasal Cannula 1.5 Intake and Output 12/17/17 07:00 Output Total 500 ml Balance -500 ml Output Urine Total 500 ml General Appearance: Alert, Awake, No Acute Distress, Afebrile Neuro: No Gross deficits Eyes: PERRLA ENT: Normal Cardiovascular: Normal Rhythm & Peripheral Pulses Respiratory: No Respiratory Distress GI: Other (distended abdomen with ascitis) Extremities: Soft and Non Tender Psych: Alert & Oriented X3, Appropriate Mood & Affect Result Diagram: 12/16/17 0545 12/16/17544 Assessment and Plan Problems: (1) Hyponatremia Status: Acute Assessment & Plan: His low Na state is due to his underlying liver cirrhosis I will use Lasix IV 40mg po bid I will also use Aldactone 50mg in am I will repeat his CMP in am I will check his TSH level 12/16: His Na level is slightly better 124. 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 he is an active drinker. I will start him on Lasix 40mg IV bid I will start him on Aldactone 50mg in am I will repeat his CMP and Ammonia level I will arrange US guided Paracentesis by IR in am for symptomatic relief. 12/16: I will arrange Paracentesis by IR today and send fluid for investigation. I will check his labs in am (3) Type 2 diabetes mellitus treated with insulin Status: Chronic Assessment & Plan: I will start him on Diabetic diet 1800 Endy ADA Accuchecks q AC and HS Moderate Sliding scale coverage with Regular Insulin I will continue his Lantus 6 Units daily 12/16: Same management (4) History of atrial fibrillation Status: Resolved Assessment & Plan: I will resume his Diltiazem for his A.fib. He is currently in [facility] Venous Access Medical Necessity for Access: IV Access, Medication Administration Time Spent on Plan of Care: < 30 min Copies to: LIDIA AVALOS DO Exam Sepsis Risk: No Definite Risk OZZY BUCKLEY MD Dec 16, 2017 10:13
[2017-12-16 14:28] VITALS: BP 109/73
--- NOTE | 2017-12-16 17:00 | RADIOLOGY IMAGING REPORT ---
FACILITY: [facility] - [place] PATIENT NAME: Buster Kaur : 1945 MR: [id number] V: [id number] EXAM DATE: ORDERING PHYSICIAN: OZZY BUCKLEY TECHNOLOGIST: Location: [facility] Patient: Buster Kaur : 1945 Visit/Account:[id number] Date of Sevice: 12/16/2017 Exam type: PARACENTESIS History: ascites, liver cirrhosis Comparison: None. Findings: Informed consent was obtained. The right-sided the patient's abdomen was prepped and draped in usual sterile fashion. Local anesthesia was accomplished with 1% lidocaine. Under sonographic guidance a paracentesis catheter was advanced percutaneously into the right lateral aspect of the abdomen. Minal roximately 4890 mL of yellow ascitic fluid was removed from the peritoneal cavity. Sample was sent t o laboratory for evaluation. The procedure was accomplished without apparent complication. IMPRESSION: 1. Successful sonographically guided paracentesis with interval removal of 4890 mL of yellow ascitic fluid Report Dictated By: Sparkle Estrada MD at 12/16/2017 4:54 PM Report E-Signed By: Sparkle Estrada MD at 12/16/2017 4:56 PM WSN:[email or web address]
[2017-12-16 18:33] VITALS: BP 126/80
[2017-12-16] MEDS ORDERED: ENOXAPARIN 40 MG/0.4ML SYR SC SCH (21:00)
[2017-12-16] MEDS: LORazepam 1 MG TAB PO SCH (21:30)
[2017-12-17 03:13] VITALS: BP 140/78
[2017-12-17] MEDS: LEVOTHYROXINE SOD 0.025 MG TAB PO SCH (05:51)
[2017-12-17] MEDS: SPIRONOLACTONE 25 MG TAB PO SCH (05:51)
[2017-12-17] MEDS: PANTOPRAZOLE SOD 40 MG TABEC PO SCH (05:51)
[2017-12-17 07:36] VITALS: BP 130/75
[2017-12-17] MEDS ORDERED: SPIR25TA78 PO (08:18)
[2017-12-17] MEDS ORDERED: VITA-175 PO (08:18)
--- NOTE | 2017-12-17 08:21 | Hospitalist Depart ---
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 He continues to be an active drinker. He had US guided paracentesis by radiology for symptomatic relief. Fluid analysis was unremarkable. No organisms were seen on gram stain. Culture had no growth. He was eating and drinking better. He was initially given some IV Lasix and started on oral spironolactone. He will need close follow up as an outpatient. He was advised to remain abstinent from alcohol. (2) Hyponatremia Status: Acute Hospital Course & Plan: Most likely due to his underlying liver cirrhosis. He will need close follow up on his lab as he has been started on oral spironolactone. (3) Type 2 diabetes mellitus treated with insulin Status: Chronic Hospital Course & Plan: He will continue his usual Lantus 6 units daily. (4) History of atrial fibrillation Status: Resolved Hospital Course & Plan: Continue his Diltiazem. He is not a good candidate for anticoagulation therapy. He is on aspirin. He appeared to be maintaining sinus rhythm during his stay. Departure Weight (Pounds): 274 Weight (Ounces): 2.0 Result Diagram: 12/16/17 0545 12/16/17 0545 Item Value Date Time White Blood Count 9.8 k/uL 12/15/17 1714 Hemoglobin 14.5 g/dL 12/15/17 1714 Hematocrit 40.4 % L 12/15/17 1714 Platelet Count 194 K/uL 12/15/17 1714 Lipase 99 U/L 12/15/17 1714 Amylase Level 66 U/L 12/15/17 1714 Albumin 3.3 g/dl L 12/15/17 1714 Total Protein 8.2 gm/dl 12/15/17 1714 Ammonia 10 UMOL/L 12/15/17 1714 Alkaline Phosphatase 669 U/L H 12/15/17 1714 Alanine Aminotransferase (ALT/SGPT) 74 U/L H 12/15/17 1714 Aspartate Amino Transf (AST/SGOT) 191 U/L H 12/15/17 1714 Total Bilirubin 11.4 mg/dl H 12/15/17 1714 Calcium Level 8.7 mg/dl 12/15/17 1714 Random Glucose 115 mg/dl H 12/15/17 1714 Glomerular Filtration Rate Calc > 60.0 12/15/17 1714 Creatinine 1.00 mg/dl 12/15/17 1714 Blood Urea Nitrogen 8 mg/dl L 12/15/17 1714 Carbon Dioxide Level 20 mmol/L L 12/15/17 1714 Chloride Level 92 mmol/L L 12/15/17 1714 Potassium Level 4.0 mmol/L 12/15/17 1714 Sodium Level 123 mmol/L *L 12/15/17 1714 Whole Blood Glucose 96 mg/DL 12/15/17 2138 Prothrombin Time 15.2 seconds H 12/15/17 1714 Prothromb Time International Ratio 1.19 12/15/17 1714 Activated Partial Thromboplast Time 37 seconds H 12/15/17 1714 Urine Color Sima 12/15/17 1724 Urine Clarity Clear 12/15/17 1724 Urine pH 6.0 pH 12/15/17 1724 Urine Specific [place] 1.015 12/15/17 1724 Urine Protein Negative mg/dL 12/15/17 1724 Urine Glucose (UA) Negative mg/dL 12/15/17 1724 Urine Ketones Negative mg/dL 12/15/17 1724 Urine Blood Negative 12/15/17 1724 Urine Nitrite Negative 12/15/17 1724 Urine Bilirubin Small 12/15/17 1724 Urine Urobilinogen 4.0 mg/dL H 12/15/17 1724 Urine Leukocyte Esterase Negative 12/15/17 1724 Urine RBC <1 /HPF 12/15/17 1724 Urine WBC 4 /HPF 12/15/17 1724 Urine Squamous Epithelial Cells None /LPF 12/15/17 1724 Urine Bacteria Negative /HPF 12/15/17 1724 Urine Mucus None /HPF 12/15/17 1724 Body Fluid Total Protein < 2.0 G/dl 12/16/17 1157 Body Fluid Basophils 1 % 12/16/17 1157 Body Fluid Eosinophils 0 % 12/16/17 1157 Body Fluid Monocytes 27 % 12/16/17 1157 Body Fluid Lymphocytes 37 % 12/16/17 1157 Body Fluid Neutrophils 35 % 12/16/17 1157 Body Fluid RBC 71 12/16/17 1157 Body Fluid WBC 39 12/16/17 1157 Body Fluid pH 7.0 pH 12/16/17 1157 Body Fluid Type paracentesis 12/16/17 1157 [facility] *LIVE* [address] [place] [address] CARLOS NG M.D., DIRECTOR OF LABORATORY SERVICES ARMIDA RETANA M.D., PATHOLOGIST RUN DATE: 12/16/17 Specimen Inquiry Report PAGE 1 RUN TIME: 1352 PATIENT: BUSTER SHRESTHA ACCT: [id number] LOC: MED U : [id number] AGE/SX: 72/M ROOM: [facility] REG : 12/15/[address]: OZZY BUCKLEY MD : 1945 BED: 271 DIS : STATUS: ADM IN TLOC: SPEC #: [id number] HOLGER: 12/16/17 STATUS: RES REQ #: [id number] RECD: 12/16/17-12[address] [facility] [address]: OZZY BUCKLEY MD SOURCE: [facility] ENTR: 12/16/[address] [facility] [address]: SPDES: ORDERED: CULT JACE/NE Procedure Result Verified GRAM STAIN Final 12/16/17-1352 NO ORGANISMS SEEN CULTURE BODY FLUID PENDING Imaging PATIENT NAME: Buster Shrestha : 1945 MR: [id number] V: [id number] EXAM DATE: ORDERING PHYSICIAN: HENRY SALAZAR TECHNOLOGIST: Location: [facility] Patient: Buster Shrestha : 1945 Visit/Account:[id number] Date of Sevice: 12/15/2017 Exam type: CHEST PA AND LAT History: abdominal pain, jaundiced Comparison: March 16, 2017. Findings: Patient is rotated towards the right. Chronic interstitial changes are again noted throughout the lungs. There is mild increased peribronchial thickening. Mild fullness of the pulmonary vascular markings. The cardiac silhouette is normal in size. There are mild spondylotic changes thoracic spine IMPRESSION: 1. Mild fullness of the pulmonary vascular markings which may be secondary to mild pulmonary edema. Chronic initial changes noted throughout the lungs Mild increased peribronchial thickening which could represent an acute peribronchial inflammatory process Report Dictated By: Sparkle Estrada MD at 12/15/2017 5:59 PM Report E-Signed By: Sparkle Estrada MD at 12/15/2017 6:01 PM WSN:[id number] Condition: Improved Discharge: Home, Self Care Follow-Up Labs: Other (CBC, CMP in 1-[address] Avalos.) Time Spent: > 30 min Discharge Instructions Home Meds Active Scripts Vitamin B Complex (B COMPLEX) 1 Each Tablet, 1 EACH PO DAILY, #30 TAB 1 Refill Prov:ARNULFO ALCANTARA MD 12/17/17 Spironolactone (SPIRONOLACTONE) 25 Mg Tablet, 25 MG PO BID, #60 TAB 0 Refills Prov:ARNULFO ALCANTARA MD 12/17/17 Diltiazem Hcl (DILTIAZEM 24HR CD) 240 Mg Cap.er.24h, 240 MG PO QDAY, #30 CAP.SR.24H Prov:MANUEL MARTÍNEZ DO 03/19/17 Lorazepam (LORAZEPAM) 1 Mg Tab, 1 MG PO BID, #30 TAB Prov:MANUEL MARTÍNEZ DO 03/19/17 Levothyroxine Sodium (LEVOTHYROXINE SODIUM) 25 Mcg Tablet, 0.025 MG PO QDAY@06, #30 TAB Prov:MANUEL MARTÍNEZ DO 03/19/17 Aspirin (ASPIRIN EC) 81 Mg Tablet., 81 MG PO QDAY, #30 TAB Prov:MANUEL MARTÍNEZ DO 03/19/17 Reported Medications Hyoscyamine Sulfate (HYOSCYAMINE SULFATE) 0.125 Mg Tablet, 0.125 MG PO 12/15/17 Insulin Glargine (LANTUS) 100 Unit/Ml Soln, 6 UNIT SUBQ HS, ML 02/17/17 Discontinued Scripts Sulfamethoxazole/Trimet 800-160 Mg Tab (BACTRIM DS TABLET) 1 Each Tablet, 1 TAB PO Q12H, #14 MG 0 Refills TAKE ONE TABLET BY MOUTH EVERY TWELVE HOURS Prov:JAVY MOMIN MD 12/02/17 Duloxetine Hcl (CYMBALTA) 30 Mg Capsule., 30 MG PO QDAY, #30 CAP Prov:MANUEL MARTÍNEZ DO 03/19/17 Follow up Referrals: Family Practice @ [facility] with Richard Avalos Do Diet: Diabetic Activity: As Tolerated Special Instructions: Follow up with Dr. Avalos in 7-10 days or sooner if any problems. NO alcohol. Copies to: RICHARD AVALOS DO Venous Thromboembolism Antithrombotics Is Pt On Any Antithrombotics?: No ARNULFO ALCANTARA MD Dec 17, 2017 08:21
[2017-12-17] MEDS: THIAMINE HCL 100 MG TAB PO SCH (08:48)
[2017-12-17] MEDS: FOLIC ACID 1 MG TAB PO SCH (08:48)
[2017-12-17] MEDS: DILTIAZEM CD 120 MG CAPCR PO SCH (08:48)
[2017-12-17] MEDS: CYANOCOBALAMIN 1000 MCG TAB PO SCH (08:48)
[2017-12-17] MEDS: ASPIRIN 81 MG CHEW PO SCH (08:48)
== END 2017-12-17 10:35 | disposition home health service (06) | DRG 433 ==
LOC: ER 16:53 → MED 19:03
PROVIDERS: ADMIT Specialist; ATTEND Specialist
PROC: 0W9G3ZX Drainage of Peritoneal Cavity, Percutaneous Approach, Diagnostic (ICD-10-PCS; principal; 2017-12-16)
DX: K70.31 Alcoholic cirrhosis of liver with ascites (principal); E87.1 Hypo-osmolality and hyponatremia; J81.1 Chronic pulmonary edema; F10.188 Alcohol abuse with other alcohol-induced disorder; I48.2 Chronic atrial fibrillation; I10 Essential (primary) hypertension; E11.40 Type 2 diabetes mellitus with diabetic neuropathy, unspecified; J44.9 Chronic obstructive pulmonary disease, unspecified; G89.29 Other chronic pain; I25.2 Old myocardial infarction; Z79.01 Long term (current) use of anticoagulants; Z88.8 Allergy status to other drugs, medicaments and biological substances; Z87.891 Personal history of nicotine dependence; Z79.4 Long term (current) use of insulin
CPT/HCPCS: 36415; 36416; 49083; 71046; 81001; 82040; 82140; 82150; 82247; 82310; 82374; 82435; 82565; 82945; 82947; 82948; 83690; 83986; 84075; 84132; 84155; 84157; 84295; 84443; 84450; 84460; 84520; 85025; 85610; 85730; 87071; 87205; 89050; 99285; J1650; J1940

== ENCOUNTER → 2017-12-15 | Outpatient (CLI) | payer MEDICARE, MEDICAID ==
[~2017-12-15] MED LIST changes: +HYOS0.1225 PO; +SPIR25TA78 PO; +SULF-198 PO; +VITA-175 PO; -WARF-18 PO; +WARF5TAB23 PO
[2017-12-16 08:31] VITALS: BMI 37.2
== END ==
LOC: AMB 16:19
PROVIDERS: ATTEND Nurse Practitioner
DX: R17 Unspecified jaundice (principal); I48.91 Unspecified atrial fibrillation; K76.9 Liver disease, unspecified
CPT/HCPCS: A0425; A0427

== ENCOUNTER 2017-12-16 13:52 | Outpatient (RCR) | payer MEDICARE, MEDICAID ==
[2017-12-16 08:31] VITALS: BMI 37.2
[~2017-12-16 13:52] MED LIST changes: +HYOS0.1225 PO; -WARF-18 PO; +WARF5TAB23 PO
[2017-12-17] MEDS ORDERED: VITA-175 PO (08:18)
[2017-12-17] MEDS ORDERED: SPIR25TA78 PO (08:18)
--- NOTE | 2017-12-18 12:40 | Transitional Care Management ---
Assessment Visit Type: Telephone Visit (12/18 Buster and Analia) Cardiac Comment: 12/18 Denies Chest pain or cardiac irregularities Respiratory: WNL Except Respiratory Comment: 12/18 on RA but didn't sound like he ws taking deep breaths- enc him to do do CDB frequently to avoid pneu. Move around GI: Nutrition: WNL Except (12/18 Ok but not very well-falls asleep) GI Comment: 12/18 not eating very much eating diabetic diet and taking insulin at HS Constipation?: No : WNL Except Comment: 12/18 Concerned that urine is stil dark. Explained that d/t jaundice that will continue. Enc fluids as ordered. Monitor amt of output. states he isn't voiding a whole lot. Musculoskeletal, Exercise: WNL Except Musculoskeletal, Excercise Com: 12/18 Poor--has pain and is unsteady. Wiife states she pretty much has to lift him out of chair, bed. HH Pt will there shortly to assist with strengthening. Mobility Comment: 12/18 has fallen in the past while using a walker and was hurt pretty badly so refuses to use one but does have a cane that he uses.Enc her to try to avoid lifting him on her own or she will get hurt. Asked her to ask PT for some asistance/teaching on how to help him up. Pain/Management: WNL Except Pain/Management Comment: 12/18 Has lots of pain- states "Drs won't percribe pain meds for him" So when pain gets bad he has a few drinks of alcohol to help the pain" Enc her/him to find other ways for decreasing px- meditation, relaxation. get up and walk around a little bit." Scheduled Follow-Up with Brendai: No (12/18 Dr office closed today and Fridat-- will FU next week.) Primary Care Provider Visits: No Questions for Future PCP Visit: 12/18 ? Urine and fluid intake. ? jaundice and pain control. TCM Discharge Criteria Medication Knowledge: 12/18 states he got his new meds and is taking. She pretty much sets up and gives to him. Disease Management/Concern/Wha: 12/18 He stated he hasn't consumed alcohol since DC. I did go over DT's with both him and his . He states he has never had any in the past." We went over new mmeds-no questions. Discussed the probibility of getten edmatous or increased swelling and to consult w Dr Avalos if this increases. Monitor drainage from puncture site. HH will also be following. Red/Yellow Flags: 12/18 see above. Transitional Care Comment: 12/16 He is here due to jaundice and ABD swelling, HX of cirrohsis, DM, and Afib. I reviewed his home, and inpatient meds, but they will need reinforcement. Handout provided on cirrohsis and reviewed. A pericentisis will be done later this morning, I educated him on the process, and hopefull outcomes. 12/18 visited with Buster and . Buster had slurred speech and stated he was having a fair amout of pain. Enc him NOT to drink! staed "I'm not." Then let me talk to his Analia. She is very concerned about his cares and what is happening with him. States "I have to pretty much lift him from the chair.My back and shoulders are hurting. Enc her to TT PT about suggestions to get Buster out of bed and chair. States "he is having lots of pain but Dr will notorder pain meds so he drrinks a few shots to decresd pain but has not had any alcohol since DC." Went over SX&SX of DT's. Ent her to help him get an appt w Dr Avalos as directed. Also to enc him to get up and move around so he doesn't get pneu. She stated "Pt should be coming soon" Copies to: LIDIA AVALOS JOAN Dec 18, 2017 12:40
--- NOTE | 2017-12-22 14:00 | Transitional Care Management ---
Assessment Visit Type: Telephone Visit Spoke with: Analia Cardiac Comment: 12/18 Denies Chest pain or cardiac irregularities 12/22 edema seems to remain the same Respiratory: WNL Except Respiratory Comment: 12/18 on RA but didn't sound like he ws taking deep breaths- enc him to do do CDB frequently to avoid pneu. Move around 2/ has pain preventing him from doingmuch and is sedentary most of time GI: Nutrition: WNL Except (12/18 Ok but not very well-falls asleep) GI Comment: 12/18 not eating very much eating diabetic diet and taking insulin at HS 2 drinking well but, not eating much. Enc puree soups and smoothies. Last BS 106 and they have been running good. Constipation?: No : WNL Except Comment: 12/18 Concerned that urine is stil dark. Explained that d/t jaundice that will continue. Enc fluids as ordered. Monitor amt of output. states he isn't voiding a whole lot. 2/ reports more urination and incontinence now. has hx UTI. asked her to have [facility] nurse eval him tomorrow for UTI during her visit Musculoskeletal, Exercise: WNL Except Musculoskeletal, Excercise Com: 12/18 Poor--has pain and is unsteady. Wiife states she pretty much has to lift him out of chair, bed. Pt will there shortly to assist with strengthening. 2/ has PT with [facility] but has minimal ability and is weak Mobility/Falls: WNL Except (12/22 repeated falls at home) Mobility Comment: 12/18 has fallen in the past while using a walker and was hurt pretty badly so refuses to use one but does have a cane that he uses.Enc her to try to avoid lifting him on her own or she will get hurt. Asked her to ask PT for some asistance/teaching on how to help him up. 12/22 suggested wc to get to md appt but he is 265# and they cant get him up/down stairs at their apt. still wobbly Integumentary Comment: jaundice Feeling of Well Being: WNL Except Feeling of Well Being Comment: 12/22 requested paliative IP with Dr Calles at but he was not tx when at [facility]. Still in a lot of pain, chronic. states she is tired from being up with him at night and from caring for him as he is too weak to do for self Pain/Management: WNL Except Pain/Management Comment: 12/18 Has lots of pain- states "Drs won't prescribe pain meds for him" So when pain gets bad he has a few drinks of alcohol to help the pain" Enc her/him to find other ways for decreasing px- meditation, relaxation. get up and walk around a little bit." 2/5 has had procedures in the past that have not helped. Patience won't RX pain med. asked her to have [facility] nurse eval himand call MD to request home visit to eval and be able to RX painmed Scheduled Follow-Up with [facility]: No (12/18 Dr office closed today and Fridat-- will FU next week. 12/22 unable to get him there) Primary Care Provider Visits: No Questions for Future PCP Visit: 12/18 ? Urine and fluid intake. ? jaundice and pain control. TCM Discharge Criteria Medication Knowledge: 12/18 states he got his new meds and is taking. She pretty much sets up and gives to him. Disease Management/Concern/Wha: 12/18 He stated he hasn't consumed alcohol since DC. I did go over DT's with both him and his . He states he has never had any in the past." We went over new mmeds-no questions. Discussed the probibility of getten edmatous or increased swelling and to consult w Dr Morin if this increases. Monitor drainage from puncture site. HH will also be following. 12/22 changing BS, falls/prevention, poor mobility and decreasing strength Red/Yellow Flags: 12/18 see above. Transitional Care Comment: 12/16 He is here due to jaundice and ABD swelling, HX of cirrohsis, DM, and Afib. I reviewed his home, and inpatient meds, but they will need reinforcement. Handout provided on cirrohsis and reviewed. A pericentisis will be done later this morning, I educated him on the process, and hopefull outcomes. 12/18 visited with Buster and . Buster had slurred speech and stated he was having a fair amout of pain. Enc him NOT to drink! staed "I'm not." Then let me talk to his Analia. She is very concerned about his cares and what is happening with him. States "I have to pretty much lift him from the chair.My back and shoulders are hurting. Enc her to TT PT about suggestions to get Buster out of bed and chair. States "he is having lots of pain but Dr will notorder pain meds so he drrinks a few shots to decresd pain but has not had any alcohol since DC." Went over SX&SX of DT's. Ent her to help him get an appt w Dr Morin as directed. Also to enc him to get up and move around so he doesn't get pneu. She stated "Pt should be coming soon" 2/5 Franchesca thinks he was dc home too soon as he is too weak to walk in homemuch and has recurrent falls. has poor appetite, loss of bowel and bladder and pain that is not addressed. Suggested C eval him and communicatedirectly with his PCP for tx plan in home or to hospital to find placement. CHAS MORRIS Dec 22, 2017 14:00
--- NOTE | 2017-12-29 13:29 | Transitional Care Management ---
Assessment Visit Type: Telephone Visit Spoke with: Analia Cardiac: WNL Cardiac Comment: 12/18 Denies Chest pain or cardiac irregularities 12/22 edema seems to remain the same 12/29 Edema stable. Respiratory: WNL Except Respiratory Comment: 12/18 on RA but didn't sound like he ws taking deep breaths- enc him to do do CDB frequently to avoid pneu. Move around 2 has pain preventing him from doingmuch and is sedentary most of time GI: Nutrition: WNL Except (12/18 Ok but not very well-falls asleep) GI Comment: 12/18 not eating very much eating diabetic diet and taking insulin at HS 2 drinking well but, not eating much. Enc puree soups and smoothies. Last BS 106 and they have been running good. 12/29 Not eating anything, his face is gaunt. Wt Gain/Loss: WNL Except Weight Comment: 12/29 losing weight in his face and shoulders, the rest of him remains swollen. Constipation?: No : WNL Except Comment: 12/18 Concerned that urine is stil dark. Explained that d/t jaundice that will continue. Enc fluids as ordered. Monitor amt of output. states he isn't voiding a whole lot. 12/22 reports more urination and incontinence now. has hx UTI. asked her to have [facility] nurse eval him tomorrow for UTI during her visit 12/29 Incontinent. Musculoskeletal, Exercise: WNL Except Musculoskeletal, Excercise Com: 12/18 Poor--has pain and is unsteady. Wiife states she pretty much has to lift him out of chair, bed. Pt will there shortly to assist with strengthening. 12/22 has PT with [facility] but has minimal ability and is weak 12/29 Very weak, can't transfer, Max assist with all ADL's. Mobility/Falls: WNL Except (12/22 repeated falls at home) Mobility Comment: 12/18 has fallen in the past while using a walker and was hurt pretty badly so refuses to use one but does have a cane that he uses.Enc her to try to avoid lifting him on her own or she will get hurt. Asked her to ask PT for some asistance/teaching on how to help him up. 12/22 suggested wc to get to md appt but he is 265# and they cant get him up/down stairs at their apt. still wobbly 12/29 Max assist from bed to chair. Integumentary Comment: jaundice Feeling of Well Being: WN Except Feeling of Well Being Comment: 12/22 requested paliative IP with Dr Calles at but he was not tx when at [facility]. Still in a lot of pain, chronic. states she is tired from being up with him at night and from caring for him as he is too weak to do for self 12/29 Analia is helping with all ADL's, Buster is getting weaker by the day. Socialization: WNL Socialization Comment: 12/29 He lives at home with his . Pain/Management: WN Except Pain/Management Comment: 12/18 Has lots of pain- states "Drs won't prescribe pain meds for him" So when pain gets bad he has a few drinks of alcohol to help the pain" Enc her/him to find other ways for decreasing px- meditation, relaxation. get up and walk around a little bit." 12/22 has had procedures in the past that have not helped. [facility]ience won't RX pain med. asked her to have [facility] nurse surinder himand call MD to request home visit to surinder and be able to RX painmed 12/29 He is in pain Scheduled Follow-Up with [facility]: Yes (12/[address] Avalos on , the manager bilingual and senior case manager from [facility] will go along.) Primary Care Provider Visits: No Questions for Future PCP Visit: 12/18 ? Urine and fluid intake. ? jaundice and pain control. TCM Discharge Criteria Medication Knowledge: 12/18 states he got his new meds and is taking. She pretty much sets up and gives to him. Disease Management/Concern/Wha: 12/18 He stated he hasn't consumed alcohol since DC. I did go over DT's with both him and his . He states he has never had any in the past." We went over new mmeds-no questions. Discussed the probibility of getten edmatous or increased swelling and to consult w Dr Avalos if this increases. Monitor drainage from puncture site. HH will also be following. 12/22 changing BS, falls/prevention, poor mobility and decreasing strength Red/Yellow Flags: 12/18 see above. Transitional Care Comment: 12/16 He is here due to jaundice and ABD swelling, HX of cirrohsis, DM, and Afib. I reviewed his home, and inpatient meds, but they will need reinforcement. Handout provided on cirrohsis and reviewed. A pericentisis will be done later this morning, I educated him on the process, and hopefull outcomes. 12/18 visited with Buster and . Buster had slurred speech and stated he was having a fair amout of pain. Enc him NOT to drink! staed "I'm not." Then let me talk to his Analia. She is very concerned about his cares and what is happening with him. States "I have to pretty much lift him from the chair.My back and shoulders are hurting. Enc her to TT PT about suggestions to get Buster out of bed and chair. States "he is having lots of pain but Dr will notorder pain meds so he drrinks a few shots to decresd pain but has not had any alcohol since DC." Went over SX&SX of DT's. Ent her to help him get an appt w Dr Avalos as directed. Also to enc him to get up and move around so he doesn't get pneu. She stated "Pt should be coming soon" 12/22 Franchesca thinks he was dc home too soon as he is too weak to walk in homemuch and has recurrent falls. has poor appetite, loss of bowel and bladder and pain that is not addressed. Suggested C eval him and communicatedirectly with his PCP for tx plan in home or to hospital to find placement. 12/29 He is weaker, not eating, max assist with ADL's, not sleeping. Analia is helping him with his care, but he is less able to help. He has an appt with Dr Avalos on , the Data Management Engineer and Box Order Person will help with the transfer and speak with Dr Avalos. Analia repeatedly steered the conversation to pain meds, "if he could get some pain relief, he would be alright." She told me about Dr Calles, a palliative care physician in [facility], and the suggestions that he had made to her regarding his pain management, ie, pain meds. From my understanding, Dr Calles is not a doctor involved in his care, and works with inpatient palliative patients. I explained to Analia what palliative care is, and suggested she might speak with local hospice if that was appropriate. She declined, "if he can get pain meds, he will get better." Copies to: LIDIA AVALOS MICHAEL K Dec 29, 2017 13:29
[2018-01-01] MEDS ORDERED: TAMS0.4C70 PO (18:30)
[2018-01-01] MEDS ORDERED: SPIR25TA78 PO (18:30)
[2018-01-01] MEDS ORDERED: LEVO750T27 PO (18:30)
--- NOTE | 2018-01-02 12:10 | Transitional Care Management ---
Assessment Visit Type: Telephone Visit (01/02 Analia) Cardiac: WNL Cardiac Comment: 12/18 Denies Chest pain or cardiac irregularities 12/22 edema seems to remain the same 12/29 Edema stable. 01/02Wife states "he is status quo, seems just [facility], edema unchanged Respiratory: WNL Except Respiratory Comment: 12/18 on RA but didn't sound like he ws taking deep breaths- enc him to do do CDB frequently to avoid pneu. Move around 12/22 has pain preventing him from doing much and is sedentary most of time 01/02 Unable to move around "so not taking any deep breaths only sits in chair" reminded her to have him stake deep breaths and CDB to prevent pneu. GI: Nutrition: WNL Except (12/18 Ok but not very well-falls asleep) GI Comment: 12/18 not eating very much eating diabetic diet and taking insulin at HS 12/22 drinking well but, not eating much. Enc puree soups and smoothies. Last BS 106 and they have been running good. 12/29 Not eating anything, his face is gaunt. 01/02 cont to eat poorly. Enc supplements ie Boost, Ensure. Wt Gain/Loss: WNL Except Weight Comment: 12/29 losing weight in his face and shoulders, the rest of him remains swollen. 01/02 still cont to have edema in lower extremities. but seems to cont to lose wt. Constipation?: No : WNL Except Comment: 12/18 Concerned that urine is stil dark. Explained that d/t jaundice that will continue. Enc fluids as ordered. Monitor amt of output. states he isn't voiding a whole lot. 2 reports more urination and incontinence now. has hx UTI. asked her to have [facility] nurse eval him tomorrow for UTI during her visit 12/29 Incontinent. Musculoskeletal, Exercise: WNL Except Musculoskeletal, Excercise Com: 12/18 Poor--has pain and is unsteady. Wiife states she pretty much has to lift him out of chair, bed. Pt will there shortly to assist with strengthening. 2 has PT with [facility] but has minimal ability and is weak 12/29 Very weak, can't transfer, Max assist with all ADL's. 01/02 very weak! Bennettd to call EMT to help her get him up from chair and into bed. He did get up this AM with lots of work. Moved to chair and not much futher. HH/PT won't be in until Tu and Th Mobility/Falls: WNL Except (12/22 repeated falls at home) Mobility Comment: 12/18 has fallen in the past while using a walker and was hurt pretty badly so refuses to use one but does have a cane that he uses.Enc her to try to avoid lifting him on her own or she will get hurt. Asked her to ask PT for some asistance/teaching on how to help him up. 12/22 suggested wc to get to md appt but he is 265# and they cant get him up/down stairs at their apt. still wobbly 12/29 Max assist from bed to chair. Integumentary Comment: jaundice Feeling of Well Being: WN Except Feeling of Well Being Comment: 12/22 requested paliative IP with Dr Calles at but he was not tx when at [facility]. Still in a lot of pain, chronic. states she is tired from being up with him at night and from caring for him as he is too weak to do for self 12/29 Analia is helping with all ADL's, Buster is getting weaker by the day. 01/02 Buster very weak and Analia is increasingly having difficulties moving him around and helping him Socialization: WN Socialization Comment: 12/29 He lives at home with his . Pain/Management: WN Except Pain/Management Comment: 12/18 Has lots of pain- states "Drs won't prescribe pain meds for him" So when pain gets bad he has a few drinks of alcohol to help the pain" Enc her/him to find other ways for decreasing px- meditation, relaxation. get up and walk around a little bit." 12/22 has had procedures in the past that have not helped. Patience won't RX pain med. asked her to have [facility] nurse surinder himand call MD to request home visit to surinder and be able to RX painmed 12/29 He is in pain 01/02 He is in pain which prevents him from doing anything and px meds have been stopped. He hsas pretty much stopped drinking as far as she knows. Scheduled Follow-Up with Brendai: Yes (12/[address] Avalos on , the general manager food and director case from [facility] will go along.01/[address]t [address] Dr Avalos next week. ) Primary Care Provider Visits: No Questions for Future PCP Visit: 12/18 ? Urine and fluid intake. ? jaundice and pain control. 01/02 Making Buster a DNR and ?hospice care. TCM Discharge Criteria Medication Knowledge: 12/18 states he got his new meds and is taking. She pretty much sets up and gives to him. Disease Management/Concern/Wha: 12/18 He stated he hasn't consumed alcohol since DC. I did go over DT's with both him and his . He states he has never had any in the past." We went over new mmeds-no questions. Discussed the probibility of getten edmatous or increased swelling and to consult w Dr Avalos if this increases. Monitor drainage from puncture site. HH will also be following. 12/22 changing BS, falls/prevention, poor mobility and decreasing strength Red/Yellow Flags: 12/18 see above. Transitional Care Comment: 12/16 He is here due to jaundice and ABD swelling, HX of cirrohsis, DM, and Afib. I reviewed his home, and inpatient meds, but they will need reinforcement. Handout provided on cirrohsis and reviewed. A pericentisis will be done later this morning, I educated him on the process, and hopefull outcomes. 12/18 visited with Bsuter and . Buster had slurred speech and stated he was having a fair amout of pain. Enc him NOT to drink! staed "I'm not." Then let me talk to his Analia. She is very concerned about his cares and what is happening with him. States "I have to pretty much lift him from the chair.My back and shoulders are hurting. Enc her to TT PT about suggestions to get Buster out of bed and chair. States "he is having lots of pain but Dr will notorder pain meds so he drrinks a few shots to decresd pain but has not had any alcohol since DC." Went over SX&SX of DT's. Ent her to help him get an appt w Dr Avalos as directed. Also to enc him to get up and move around so he doesn't get pneu. She stated "Pt should be coming soon" 12/22 Franchesca thinks he was dc home too soon as he is too weak to walk in homemuch and has recurrent falls. has poor appetite, loss of bowel and bladder and pain that is not addressed. Suggested [facility] eval him and communicatedirectly with his PCP for tx plan in home or to hospital to find placement. 12/29 He is weaker, not eating, max assist with ADL's, not sleeping. Analia is helping him with his care, but he is less able to help. He has an appt with Dr Avalos on , the Manager Bridge and Home Security Alarm Installer will help with the transfer and speak with Dr Avalos. Analia repeatedly steered the conversation to pain meds, "if he could get some pain relief, he would be alright." She told me about Dr Calles, a palliative care physician in [facility], and the suggestions that he had made to her regarding his pain management, ie, pain meds. From my understanding, Dr Calles is not a doctor involved in his care, and works with inpatient palliative patients. I explained to Analia what palliative care is, and suggested she might speak with local hospice if that was appropriate. She declined, "if he can get pain meds, he will get better." 01/02 Once again explaned palative/comfort care. Told Analia to call Hospice today and see what they have to offer and what they can do for Buster. Analia is shaving problems moving him around ("I have a fx wrist and rib pain myself') and he is in so much pain, losing wt, depressed. She agreed that she would call them and see what can take place soon as she doesn't feel she can lift him around anymore.Had to call EMT's last PM past dc from [facility] to help him get out of chair and a neighbor came and hellped him get up the 17 steps needed to get into apartment. Refuses [facility] or SW. Copies to: LIDIA AVALOS JOAN Jan 02, 2018 12:10
--- NOTE | 2018-01-09 14:12 | Transitional Care Management ---
Assessment Visit Type: Telephone Visit (01/08 unable to contact 01/09 Analia) Cardiac: WNL Cardiac Comment: 12/18 Denies Chest pain or cardiac irregularities 12/22 edema seems to remain the same 12/29 Edema stable. 01/02Wife states "he is status quo, seems just [facility], edema unchanged Respiratory: WNL Except Respiratory Comment: 12/18 on RA but didn't sound like he ws taking deep breaths- enc him to do do CDB frequently to avoid pneu. Move around 12/22 has pain preventing him from doing much and is sedentary most of time 01/02 Unable to move around "so not taking any deep breaths only sits in chair" reminded her to have him take deep breaths and CDB to prevent pneu. 01/09 His condition has basically unchanged. GI: Nutrition: WNL Except (12/18 Ok but not very well-falls asleep) GI Comment: 12/18 not eating very much eating diabetic diet and taking insulin at HS 12/22 drinking well but, not eating much. Enc puree soups and smoothies. Last BS 106 and they have been running good. 12/29 Not eating anything, his face is gaunt. 01/02 cont to eat poorly. Enc supplements ie Boost, Ensure. Wt Gain/Loss: WNL Except Weight Comment: 12/29 losing weight in his face and shoulders, the rest of him remains swollen. 01/02 still cont to have edema in lower extremities. but seems to cont to lose wt. Constipation?: No : WNL Except Comment: 12/18 Concerned that urine is stil dark. Explained that d/t jaundice that will continue. Enc fluids as ordered. Monitor amt of output. states he isn't voiding a whole lot. 12/22 reports more urination and incontinence now. has hx UTI. asked her to have [facility] nurse eval him tomorrow for UTI during her visit 12/29 Incontinent. 01/09 Has been incont d/t she can't get him up sometimes on time. Musculoskeletal, Exercise: WNL Except Musculoskeletal, Excercise Com: 12/18 Poor--has pain and is unsteady. Wiife states she pretty much has to lift him out of chair, bed. HH Pt will there shortly to assist with strengthening. 12/22 has PT with [facility] but has minimal ability and is weak 12/29 Very weak, can't transfer, Max assist with all ADL's. 01/02 very weak! SHad to call EMT to help her get him up from chair and into bed. He did get up this AM with lots of work. Moved to chair and not much futher. HH/PT won't be in until and 01/09 still has HH/PT but he is increasingly getting weaker. Mobility/Falls: WNL Except (12/22 repeated falls at home) Mobility Comment: 12/18 has fallen in the past while using a walker and was hurt pretty badly so refuses to use one but does have a cane that he uses.Enc her to try to avoid lifting him on her own or she will get hurt. Asked her to ask PT for some asistance/teaching on how to help him up. 12/22 suggested wc to get to md appt but he is 265# and they cant get him up/down stairs at their apt. still wobbly 12/29 Max assist from bed to chair. Integumentary Comment: jaundice Feeling of Well Being: WNL Except Feeling of Well Being Comment: 12/22 requested paliative IP with Dr Calles at but he was not tx when at [facility]. Still in a lot of pain, chronic. states she is tired from being up with him at night and from caring for him as he is too weak to do for self 12/29 Analia is helping with all ADL's, Buster is getting weaker by the day. 01/02 Buster very weak and Analia is increasingly having difficulties moving him around and helping him Socialization: WNL Socialization Comment: 12/29 He lives at home with his . Pain/Management: WNL Except Pain/Management Comment: 12/18 Has lots of pain- states "Drs won't prescribe pain meds for him" So when pain gets bad he has a few drinks of alcohol to help the pain" Enc her/him to find other ways for decreasing px- meditation, relaxation. get up and walk around a little bit." 12/22 has had procedures in the past that have not helped. [facility] won't RX pain med. asked her to have [facility] nurse eval himand call MD to request home visit to surinder and be able to RX painmed 12/29 He is in pain 01/02 He is in pain which prevents him from doing anything and px meds have been stopped. He hsas pretty much stopped drinking as far as she knows. Scheduled Follow-Up with [facility]: No (01/09 unable to take him d/t weakness) Primary Care Provider Visits: No Questions for Future PCP Visit: 12/18 ? Urine and fluid intake. ? jaundice and pain control. 01/02 Making Buster a DNR and ?hospice care. TCM Discharge Criteria Medication Knowledge: 12/18 states he got his new meds and is taking. She pretty much sets up and gives to him. Disease Management/Concern/Wha: 12/18 He stated he hasn't consumed alcohol since DC. I did go over DT's with both him and his . He states he has never had any in the past." We went over new mmeds-no questions. Discussed the probibility of getten edmatous or increased swelling and to consult w Dr Avalos if this increases. Monitor drainage from puncture site. HH will also be following. 12/22 changing BS, falls/prevention, poor mobility and decreasing strength Red/Yellow Flags: 12/18 see above. Transitional Care Comment: 12/16 He is here due to jaundice and ABD swelling, HX of cirrohsis, DM, and Afib. I reviewed his home, and inpatient meds, but they will need reinforcement. Handout provided on cirrohsis and reviewed. A pericentisis will be done later this morning, I educated him on the process, and hopefull outcomes. 12/18 visited with Buster and . Buster had slurred speech and stated he was having a fair amout of pain. Enc him NOT to drink! staed "I'm not." Then let me talk to his Analia. She is very concerned about his cares and what is happening with him. States "I have to pretty much lift him from the chair.My back and shoulders are hurting. Enc her to TT PT about suggestions to get Buster out of bed and chair. States "he is having lots of pain but Dr will notorder pain meds so he drrinks a few shots to decresd pain but has not had any alcohol since DC." Went over SX&SX of DT's. Ent her to help him get an appt w Dr Avalos as directed. Also to enc him to get up and move around so he doesn't get pneu. She stated "Pt should be coming soon" 12/22 Franchesca thinks he was dc home too soon as he is too weak to walk in homemuch and has recurrent falls. has poor appetite, loss of bowel and bladder and pain that is not addressed. Suggested [facility] eval him and communicatedirectly with his PCP for tx plan in home or to hospital to find placement. 12/29 He is weaker, not eating, max assist with ADL's, not sleeping. Analia is helping him with his care, but he is less able to help. He has an appt with Dr Avalos on , the [employer] will help with the transfer and speak with Dr Avalos. Analia repeatedly steered the conversation to pain meds, "if he could get some pain relief, he would be alright." She told me about Dr Calles, a palliative care physician in [facility], and the suggestions that he had made to her regarding his pain management, ie, pain meds. From my understanding, Dr Calles is not a doctor involved in his care, and works with inpatient palliative patients. I explained to Analia what palliative care is, and suggested she might speak with local hospice if that was appropriate. She declined, "if he can get pain meds, he will get better." 01/02 Once again explaned palative/comfort care. Told Analia to call Hospice today and see what they have to offer and what they can do for Buster. Analia is shaving problems moving him around ("I have a fx wrist and rib pain myself') and he is in so much pain, losing wt, depressed. She agreed that she would call them and see what can take place soon as she doesn't feel she can lift him around anymore.Had to call EMT's last PM past dc from [facility] to help him get out of chair and a neighbor came and hellped him get up the 17 steps needed to get into apartment. Refuses [facility] or SW. 01/09 Analia states that Kaylan condition has not improved very much. "I have to do most of the lifting and moving him around. This is getting more difficult for me." She did contact hospice to inquire about their services and they were just there visiting. Chris will visit with Dr Avalos and try and get anDNR and Hospice order. Analia thinks Buster is borderline and that is why [facility] is not giving the order. Analia will call their sons and sidcuss this all with them and see what the outcome is. Copies to: LIDIA AVALOS JOAN Jan 09, 2018 14:12
[2018-01-14] MEDS ORDERED: INSU100V24 SUBQ (13:12)
[2018-01-14] MEDS ORDERED: LEVO150T72 PO (13:12)
--- NOTE | 2018-01-23 11:56 | Transitional Care Management ---
Assessment Cardiac: WNL Cardiac Comment: 12/18 Denies Chest pain or cardiac irregularities 12/22 edema seems to remain the same 12/29 Edema stable. 01/02Wife states "he is status quo, seems just [facility], edema unchanged Respiratory: WNL Except Respiratory Comment: 12/18 on RA but didn't sound like he ws taking deep breaths- enc him to do do CDB frequently to avoid pneu. Move around 12/22 has pain preventing him from doing much and is sedentary most of time 01/02 Unable to move around "so not taking any deep breaths only sits in chair" reminded her to have him take deep breaths and CDB to prevent pneu. 01/09 His condition has basically unchanged. GI: Nutrition: WNL Except (12/18 Ok but not very well-falls asleep) GI Comment: 12/18 not eating very much eating diabetic diet and taking insulin at HS 12/22 drinking well but, not eating much. Enc puree soups and smoothies. Last BS 106 and they have been running good. 12/29 Not eating anything, his face is gaunt. 01/02 cont to eat poorly. Enc supplements ie Boost, Ensure. Wt Gain/Loss: WNL Except Weight Comment: 12/29 losing weight in his face and shoulders, the rest of him remains swollen. 01/02 still cont to have edema in lower extremities. but seems to cont to lose wt. Constipation?: No : WNL Except Comment: 12/18 Concerned that urine is stil dark. Explained that d/t jaundice that will continue. Enc fluids as ordered. Monitor amt of output. states he isn't voiding a whole lot. 12/22 reports more urination and incontinence now. has hx UTI. asked her to have [facility] nurse eval him tomorrow for UTI during her visit 12/29 Incontinent. 01/09 Has been incont d/t she can't get him up sometimes on time. Musculoskeletal, Exercise: WNL Except Musculoskeletal, Excercise Com: 12/18 Poor--has pain and is unsteady. Wiife states she pretty much has to lift him out of chair, bed. Pt will there shortly to assist with strengthening. 12/22 has PT with [facility] but has minimal ability and is weak 12/29 Very weak, can't transfer, Max assist with all ADL's. 01/02 very weak! SHad to call EMT to help her get him up from chair and into bed. He did get up this AM with lots of work. Moved to chair and not much futher. HH/PT won't be in until and 01/09 still has HH/PT but he is increasingly getting weaker. Mobility/Falls: WNL Except (12/22 repeated falls at home) Mobility Comment: 12/18 has fallen in the past while using a walker and was hurt pretty badly so refuses to use one but does have a cane that he uses.Enc her to try to avoid lifting him on her own or she will get hurt. Asked her to ask PT for some asistance/teaching on how to help him up. 12/22 suggested wc to get to md appt but he is 265# and they cant get him up/down stairs at their apt. still wobbly 12/29 Max assist from bed to chair. Integumentary Comment: jaundice Feeling of Well Being: WNL Except Feeling of Well Being Comment: 12/22 requested paliative IP with Dr Calles at but he was not tx when at [facility]. Still in a lot of pain, chronic. states she is tired from being up with him at night and from caring for him as he is too weak to do for self 12/29 Analia is helping with all ADL's, Buster is getting weaker by the day. 01/02 Buster very weak and Analia is increasingly having difficulties moving him around and helping him Socialization: WNL Socialization Comment: 12/29 He lives at home with his . Pain/Management: WNL Except Pain/Management Comment: 12/18 Has lots of pain- states "Drs won't prescribe pain meds for him" So when pain gets bad he has a few drinks of alcohol to help the pain" Enc her/him to find other ways for decreasing px- meditation, relaxation. get up and walk around a little bit." 12/22 has had procedures in the past that have not helped. [facility] won't RX pain med. asked her to have [facility] nurse surinder lancasterand call MD to request home visit to surinder and be able to RX painmed 12/29 He is in pain 01/02 He is in pain which prevents him from doing anything and px meds have been stopped. He hsas pretty much stopped drinking as far as she knows. Scheduled Follow-Up with Shayla: No (01/09 unable to take him d/t weakness) Primary Care Provider Visits: No Questions for Future PCP Visit: 12/18 ? Urine and fluid intake. ? jaundice and pain control. 01/02 Making Buster a DNR and ?hospice care. TCM Discharge Criteria Medication Knowledge: 12/18 states he got his new meds and is taking. She pretty much sets up and gives to him. Disease Management/Concern/Wha: 12/18 He stated he hasn't consumed alcohol since DC. I did go over DT's with both him and his . He states he has never had any in the past." We went over new mmeds-no questions. Discussed the probibility of getten edmatous or increased swelling and to consult w Dr Morin if this increases. Monitor drainage from puncture site. HH will also be following. 12/22 changing BS, falls/prevention, poor mobility and decreasing strength Red/Yellow Flags: 12/18 see above. Transitional Care Comment: 12/16 He is here due to jaundice and ABD swelling, HX of cirrohsis, DM, and Afib. I reviewed his home, and inpatient meds, but they will need reinforcement. Handout provided on cirrohsis and reviewed. A pericentisis will be done later this morning, I educated him on the process, and hopefull outcomes. 12/18 visited with Buster and . Buster had slurred speech and stated he was having a fair amout of pain. Enc him NOT to drink! staed "I'm not." Then let me talk to his Analia. She is very concerned about his cares and what is happening with him. States "I have to pretty much lift him from the chair.My back and shoulders are hurting. Enc her to TT PT about suggestions to get Buster out of bed and chair. States "he is having lots of pain but Dr will notorder pain meds so he drrinks a few shots to decresd pain but has not had any alcohol since DC." Went over SX&SX of DT's. Ent her to help him get an appt w Dr Morin as directed. Also to enc him to get up and move around so he doesn't get pneu. She stated "Pt should be coming soon" 12/22 Franchesca thinks he was dc home too soon as he is too weak to walk in homemuch and has recurrent falls. has poor appetite, loss of bowel and bladder and pain that is not addressed. Suggested C eval him and communicatedirectly with his PCP for tx plan in home or to hospital to find placement. 12/29 He is weaker, not eating, max assist with ADL's, not sleeping. Analia is helping him with his care, but he is less able to help. He has an appt with Dr Morin on , the [employer] will help with the transfer and speak with Dr Morin. Analia repeatedly steered the conversation to pain meds, "if he could get some pain relief, he would be alright." She told me about Dr Calles, a palliative care physician in [facility], and the suggestions that he had made to her regarding his pain management, ie, pain meds. From my understanding, Dr Calles is not a doctor involved in his care, and works with inpatient palliative patients. I explained to Analia what palliative care is, and suggested she might speak with local hospice if that was appropriate. She declined, "if he can get pain meds, he will get better." 01/02 Once again explaned palative/comfort care. Told Analia to call Hospice today and see what they have to offer and what they can do for Buster. Analia is shaving problems moving him around ("I have a fx wrist and rib pain myself') and he is in so much pain, losing wt, depressed. She agreed that she would call them and see what can take place soon as she doesn't feel she can lift him around anymore.Had to call EMT's last PM past dc from [facility] to help him get out of chair and a neighbor came and hellped him get up the 17 steps needed to get into apartment. Refuses SNH or SW. 01/09 Analia states that Kaylan condition has not improved very much. "I have to do most of the lifting and moving him around. This is getting more difficult for me." She did contact hospice to inquire about their services and they were just there visiting. Chris will visit with Dr Morin and try and get anDNR and Hospice order. Analia thinks Buster is borderline and that is why [facility] is not giving the order. Analia will call their sons and sidcuss this all with them and see what the outcome is. 01/23 Buster is dc to inpatient Hospice. DC from [facility] program. CHAS MORRIS Jan 23, 2018 11:56
== END 2018-01-23 12:37 | disposition home or self-care (01) ==
LOC: TCM 13:52
PROVIDERS: ATTEND Nurse Practitioner
DX: Z02.9 Encounter for administrative examinations, unspecified (principal)

== ENCOUNTER 2017-12-30 15:41 | Inpatient (IN) | payer MEDICARE, MEDICAID ==
[~2017-12-30] VITALS: Ht 182.9 cm; Wt 120.7 kg
[~2017-12-30 15:41] MED LIST changes: -INSU100V24 SUBQ; -LEVO150T72 PO; -TAMS0.4C70 PO
--- NOTE | 2017-12-30 15:49 | ER Report ---
History and Physical Time Seen By MD: 15:48 Hx. of Stated Complaint: DOESN'T FEEL HIMSELF. NOT URINATING MUCH. JUST LEFT HOSP AFTER BEING TREATED FOR A UTI HPI/ROS CHIEF COMPLAINT: Unable to urinate HISTORY OF PRESENT ILLNESS: This is a 72-year-old male who presents to the emergency department via EMS for an inability to urinate. Patient states that he was in the hospital for jaundice, ascites and urinary tract infection. Patient states he was discharged and finished his antibiotics for his urinary tract infection about 2 days ago. Patient also states that his last bowel movement was about 2 days ago was loose. Patient states that he's been urinating once a day for the last couple of days which is unusual for him. The patient's became concerned and called EMS to have him transported to the emergency department for further evaluation. According the the home health nurses were also concerned about his decreased urine output. He denies aches or chills, any visual changes no sore throats no chest pain or shortness of breath. Patient does have chronic abdominal pain from his ascites and liver failure secondary to medication and alcohol assumption. Denies headaches or rashes. REVIEW OF SYSTEMS: Constitutional: No fever, no chills. Eyes: No discharge. ENT: No sore throat. Cardiovascular: No chest pain, no palpitations. Respiratory: No cough, no shortness of breath. Gastrointestinal: As above. Genitourinary: As above. Musculoskeletal: No back pain. Skin: No rashes. Neurological: No headache. Allergies: Coded Allergies: cephalexin (Verified Allergy, Severe, ANAPHYLAXIS, 12/02/17) NSAIDS (Non-Steroidal Anti-Inflamma (Verified Allergy, Intermediate, ) tizanidine (Verified Allergy, Unknown, 12/02/17) tramadol (Verified Allergy, Unknown, GI DISTRESS, 12/02/17) Home Meds Active Scripts Vitamin B Complex (B COMPLEX) 1 Each Tablet, 1 EACH PO DAILY, #30 TAB 1 Refill Prov:ARNULFO ALCANTARA MD 12/17/17 Spironolactone (SPIRONOLACTONE) 25 Mg Tablet, 25 MG PO BID, #60 TAB 0 Refills Prov:ARNULFO ALCANTARA MD 12/17/17 Diltiazem Hcl (DILTIAZEM 24HR CD) 240 Mg Cap.er.24h, 240 MG PO QDAY, #30 CAP.SR.24H Prov:MANUEL MARTÍNEZ DO 03/19/17 Lorazepam (LORAZEPAM) 1 Mg Tab, 1 MG PO BID, #30 TAB Prov:MANUEL MARTÍNEZ DO 03/19/17 Levothyroxine Sodium (LEVOTHYROXINE SODIUM) 25 Mcg Tablet, 0.025 MG PO QDAY@06, #30 TAB Prov:MANUEL MARTÍNEZ DO 03/19/17 Aspirin (ASPIRIN EC) 81 Mg Tablet.dr, 81 MG PO QDAY, #30 TAB Prov:MANUEL MARTÍNEZ DO 03/19/17 Reported Medications Hyoscyamine Sulfate (HYOSCYAMINE SULFATE) 0.125 Mg Tablet, 0.125 MG PO 12/15/17 Insulin Glargine (LANTUS) 100 Unit/Ml Soln, 6 UNIT SUBQ HS, ML 02/17/17 Past Medical/Surgical History Patient has a past medical and surgical history 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 fib, hypertension, heart attack, hypertension, shortness of breath secondary to ascites, colon inflammation, urinary voiding difficulties, prostatitis, arthritis, rib fractures, wears glasses, more gallons disease, drinks daily, knee replacement. Reviewed Nurses Notes: Yes Hx Smoking: Yes Smoking Status: Former Smoker Exposure to Second Hand Smoke?: Yes Hx Substance Use Disorder: No Hx Alcohol Use: Yes (3 Scotch whisky drinks a day (2 ounces each)) Constitutional Vital Sign - Last 24 Hours 12/30/17 12/30/17 12/30/17 12/30/17 15:43 15:44 15:56 16:00 Temp 98.0 Pulse 98 94 Resp 16 B/P (MAP) 152/83 (106) 152/83 126/77 (93) Pulse Ox 94 95 O2 Delivery Room Air 12/30/17 12/30/17 12/30/17 12/30/17 16:11 16:26 16:30 16:41 Pulse ? 100 B/P (MAP) ???/??? (7874) Pulse Ox 95 12/30/17 12/30/17 12/30/17 12/30/17 16:42 16:56 17:04 17:11 Pulse 99 96 B/P (MAP) 144/89 (107) 132/90 (104) Pulse Ox 94 95 12/30/17 12/30/17 12/30/17 12/30/17 17:26 17:30 17:35 17:50 Pulse 96 93 96 B/P (MAP) ???/??? (1665) Pulse Ox 97 100 94 12/30/17 12/30/17 12/30/17 12/30/17 18:02 18:05 18:20 18:30 Pulse 96 93 B/P (MAP) 132/85 (101) ???/??? (1665) Pulse Ox 93 93 12/30/17 12/30/17 12/30/17 12/30/17 18:35 18:40 18:55 19:10 Pulse 97 96 97 94 Pulse Ox 94 94 93 95 12/30/17 12/30/17 12/30/17 12/30/17 20:02 20:10 20:25 20:30 Pulse 96 94 B/P (MAP) 135/83 (100) 140/80 (100) Pulse Ox 92 94 12/30/17 20:31 Pulse 97 Pulse Ox 95 Intake and Output 12/30/17 12/30/17 12/31/17 15:00 23:00 07:00 Intake Total 150 ml Balance 150 ml Physical Exam General Appearance: The patient is alert, has no immediate need for airway protection and no signs of toxicity, no distress. Eyes: Pupils equal and round no pallor or injection. Scleral icterus, this is his baseline. ENT, Mouth: Mucous membranes are moist. Respiratory: There are no retractions, lungs are clear to auscultation. Cardiovascular: Regular rate and rhythm, no murmurs, clicks or rubs. Gastrointestinal: Abdomen is very round, firm and moderately tender, this is his baseline, no masses, bowel sounds normal. Neurological: Alert and oriented 4. Moving 30. Following all commands. No focal neuro deficits. Skin: Warm and dry, no rashes. Musculoskeletal: Neck is supple non tender. Extremities are nontender, nonswollen and have full range of motion. DIFFERENTIAL DIAGNOSIS: After history and physical exam differential diagnosis was considered for urinary tract infection, urinary retention, constipation. Medical Decision Making Data Points Result Diagram: 12/30/17 1750 12/30/17 1750 Laboratory Hematology Test 12/30/17 16:28 12/30/17 17:50 Urine Color Brown Urine Clarity Turbid Urine pH 5.0 pH (4.8-9.5) Urine Specific [place] 1.017 Urine Protein 100 mg/dL (NEGATIVE) Urine Glucose (UA) Negative mg/dL (NEGATIVE) Urine Ketones Trace mg/dL (NEGATIVE) Urine Blood Small (NEGATIVE) Urine Nitrite Negative (NEGATIVE) Urine Bilirubin Negative (NEGATIVE) Urine Urobilinogen 4.0 mg/dL (0.2-1.9) Urine Leukocyte Esterase Moderate (NEGATIVE) Urine RBC 242 /HPF (0-2/HPF) Urine WBC 05423 /HPF (0-5/HPF) Urine Squamous Epithelial Cells None /LPF (</=FEW) Urine Renal Epithelial Cells Many /LPF (NONE-FEW) Urine Bacteria Many /HPF (NONE-FEW) Urine Mucus None /HPF (NONE-FEW) Red Blood Count 3.72 M/uL (4.00-5.60) Mean Corpuscular Volume 115.9 fL (80.0-96.0) Mean Corpuscular Hemoglobin 40.8 pg (26.0-33.0) Mean Corpuscular Hemoglobin Concent 35.2 g/dL (32.0-36.0) Red Cell Distribution Width 17.1 % (11.5-14.5) Mean Platelet Volume 8.5 fL (7.2-11.1) Neutrophils (%) (Auto) 72.6 % (39.4-72.5) Lymphocytes (%) (Auto) 13.7 % (17.6-49.6) Monocytes (%) (Auto) 11.1 % (4.1-12.4) Eosinophils (%) (Auto) 1.3 % (0.4-6.7) Basophils (%) (Auto) 1.3 % (0.3-1.4) Nucleated RBC Relative Count (auto) 0.1 /100WBC Neutrophils # (Auto) 6.9 K/uL (2.0-7.4) Lymphocytes # (Auto) 1.3 K/uL (1.3-3.6) Monocytes # (Auto) 1.1 K/uL (0.3-1.0) Eosinophils # (Auto) 0.1 K/uL (0.0-0.5) Basophils # (Auto) 0.1 K/uL (0.0-0.1) Nucleated RBC Absolute Count (auto) 0.01 K/uL Peripheral Blood Smear Yes Y/N Sodium Level 124 mmol/L (137-145) Potassium Level 4.0 mmol/L (3.5-5.0) Chloride Level 91 mmol/L (98-107) Carbon Dioxide Level 20 mmol/L (22-30) Blood Urea Nitrogen 8 mg/dl (9-21) Creatinine 1.10 mg/dl (0.66-1.25) Glomerular Filtration Rate Calc > 60.0 Random Glucose 104 mg/dl (75-110) Lactate 3.2 mmol/L (0.7-2.1) Calcium Level 8.6 mg/dl (8.4-10.2) Total Bilirubin 9.1 mg/dl (0.2-1.3) Aspartate Amino Transf (AST/SGOT) 152 U/L (0-35) Alanine Aminotransferase (ALT/SGPT) 87 U/L (0-56) Alkaline Phosphatase 709 U/L (0-126) Total Protein 7.7 gm/dl (6.3-8.2) Albumin 3.1 g/dl (3.5-5.0) Chemistry Test 12/30/17 16:28 12/30/17 17:50 Urine Color Brown Urine Clarity Turbid Urine pH 5.0 pH (4.8-9.5) Urine Specific [place] 1.017 Urine Protein 100 mg/dL (NEGATIVE) Urine Glucose (UA) Negative mg/dL (NEGATIVE) Urine Ketones Trace mg/dL (NEGATIVE) Urine Blood Small (NEGATIVE) Urine Nitrite Negative (NEGATIVE) Urine Bilirubin Negative (NEGATIVE) Urine Urobilinogen 4.0 mg/dL (0.2-1.9) Urine Leukocyte Esterase Moderate (NEGATIVE) Urine RBC 242 /HPF (0-2/HPF) Urine WBC 91318 /HPF (0-5/HPF) Urine Squamous Epithelial Cells None /LPF (</=FEW) Urine Renal Epithelial Cells Many /LPF (NONE-FEW) Urine Bacteria Many /HPF (NONE-FEW) Urine Mucus None /HPF (NONE-FEW) White Blood Count 9.5 k/uL (4.5-11.0) Red Blood Count 3.72 M/uL (4.00-5.60) Hemoglobin 15.2 g/dL (14.0-18.0) Hematocrit 43.1 % (42.0-52.0) Mean Corpuscular Volume 115.9 fL (80.0-96.0) Mean Corpuscular Hemoglobin 40.8 pg (26.0-33.0) Mean Corpuscular Hemoglobin Concent 35.2 g/dL (32.0-36.0) Red Cell Distribution Width 17.1 % (11.5-14.5) Platelet Count 159 K/uL (150-450) Mean Platelet Volume 8.5 fL (7.2-11.1) Neutrophils (%) (Auto) 72.6 % (39.4-72.5) Lymphocytes (%) (Auto) 13.7 % (17.6-49.6) Monocytes (%) (Auto) 11.1 % (4.1-12.4) Eosinophils (%) (Auto) 1.3 % (0.4-6.7) Basophils (%) (Auto) 1.3 % (0.3-1.4) Nucleated RBC Relative Count (auto) 0.1 /100WBC Neutrophils # (Auto) 6.9 K/uL (2.0-7.4) Lymphocytes # (Auto) 1.3 K/uL (1.3-3.6) Monocytes # (Auto) 1.1 K/uL (0.3-1.0) Eosinophils # (Auto) 0.1 K/uL (0.0-0.5) Basophils # (Auto) 0.1 K/uL (0.0-0.1) Nucleated RBC Absolute Count (auto) 0.01 K/uL Peripheral Blood Smear Yes Y/N Glomerular Filtration Rate Calc > 60.0 Lactate 3.2 mmol/L (0.7-2.1) Calcium Level 8.6 mg/dl (8.4-10.2) Total Bilirubin 9.1 mg/dl (0.2-1.3) Aspartate Amino Transf (AST/SGOT) 152 U/L (0-35) Alanine Aminotransferase (ALT/SGPT) 87 U/L (0-56) Alkaline Phosphatase 709 U/L (0-126) Total Protein 7.7 gm/dl (6.3-8.2) Albumin 3.1 g/dl (3.5-5.0) Urinalysis Test 12/30/17 16:28 Urine Color Brown Urine Clarity Turbid Urine pH 5.0 pH (4.8-9.5) Urine Specific [place] 1.017 Urine Protein 100 mg/dL (NEGATIVE) Urine Glucose (UA) Negative mg/dL (NEGATIVE) Urine Ketones Trace mg/dL (NEGATIVE) Urine Blood Small (NEGATIVE) Urine Nitrite Negative (NEGATIVE) Urine Bilirubin Negative (NEGATIVE) Urine Urobilinogen 4.0 mg/dL (0.2-1.9) Urine Leukocyte Esterase Moderate (NEGATIVE) Urine RBC 242 /HPF (0-2/HPF) Urine WBC 25846 /HPF (0-5/HPF) Urine Squamous Epithelial Cells None /LPF (</=FEW) Urine Renal Epithelial Cells Many /LPF (NONE-FEW) Urine Bacteria Many /HPF (NONE-FEW) Urine Mucus None /HPF (NONE-FEW) EKG/Imaging Imaging Location: [facility] Patient: Buster Kaur : 1945 Visit/Account:[id number] Date of Sevice: 12/30/2017 Acute abdomen with chest: HISTORY: No bowel movement in 2 days. COMPARISON: Chest x-ray 12/15/2017, abdominal films 02/17/2017 FINDINGS: Upright and supine views of the abdomen and frontal view the chest was obtained. Bowel gas pattern is nonspecific without evidence of ileus, obstruction or free air. Small amount of stool is visualized in the colon. Patient has a history of ascites with recent paracentesis, intra-abdominal fluid is not excluded on this study. Examination limited somewhat by patient rotation. Heart and mediastinal contours are grossly normal. Chronic interstitial changes are again noted throughout the lungs. There is no acute infiltrate, pleural effusion or pneumothorax. Pulmonary vasculature is normal. IMPRESSION: 1. Nonspecific bowel gas pattern. There are no specific findings to suggest bowel obstruction. Patient has a history of ascites, this cannot be excluded. 2. Chronic interstitial changes in the lungs. There is no evidence of acute cardiopulmonary normality. Report Dictated By: Akua Vale MD at 12/30/2017 4:49 PM Report E-Signed By: Akua Vale MD at 12/30/2017 4:53 PM [id number] ED Course/Re-evaluation Clinical Indication for ER IV: Hydration, IV Access ED Course The patient was admitted to room via EMS. History and physical were obtained. Differential diagnoses were considered. An IV was started. A UA was obtained showing 12,000+ urine white blood cells, 3 view abdomen showing no acute abnormalities. I did review these results with the patient and given the patient 's large white blood cell count in the urine I told him I wanted to go ahead and check his blood counts, given a 1 L normal saline bolus. CBC, CMP were obtained as well as a lactate. Blood cultures drawn. Urine culture sent. CBC basically unchanged from his previous visits. Chemistry showing sodium of 124, lactate of 3.2 total bilirubin 9.1, AST 152, ALT 87, alkaline phosphatase 709. Patient was also given 750 mg Levaquin IV. I did review the case with Dr. Teran as noted below and the patient was admitted to the medical surgical unit. Patient and his had other questions or concerns at the time of admission. 12/30/2017 6:47:42 pm I did speak with Dr. Arreola regarding the patient's case. He is going to come down and evaluate the patient. 12/30/2017 7:31:[address] Arreola has accepted the patient into his services. Decision to Disposition Date: Dec 30, 2017 Decision to Disposition Time: 19:31 Depart Departure Latest Vital Signs Vital Signs Date Time Temp Pulse Resp B/P (MAP) Pulse Ox O2 Delivery O2 Flow Rate FiO2 12/30/17 20:31 97 95 12/30/17 20:30 140/80 (100) 12/30/17 15:44 98.0 16 Room Air Impression: Primary Impression: Hyponatremia Additional Impression: Urinary tract infection Condition: Condition Unchanged Disposition: Admitted from ER Problem Qualifiers Additional Impression: Urinary tract infection Urinary tract infection type: acute cystitis Hematuria presence: with hematuria Qualified Codes: N30.01 - Acute cystitis with hematuria HENRY SALAZAR DIGITAL STRATEGIST SENIOR MANAGER-BC Dec 30, 2017 15:49
[2017-12-30] MEDS ORDERED: NS(*) 0.9% 1000 ML BAG 1,000 ML IV ONE (16:55)
--- NOTE | 2017-12-30 16:58 | RADIOLOGY IMAGING REPORT ---
FACILITY: [facility] [place] PATIENT NAME: Buster Kaur : 1945 MR: [id number] V: [id number] EXAM DATE: ORDERING PHYSICIAN: HENRY SALAZAR TECHNOLOGIST: Location: [facility] Patient: Buster Kaur : 1945 Visit/Account:[id number] Date of Sevice: 12/30/2017 Acute abdomen with chest: HISTORY: No bowel movement in 2 days. COMPARISON: Chest x-ray 12/15/2017, abdominal films 02/17/2017 FINDINGS: Upright and supine views of the abdomen and frontal view the chest was obtained. Bowel gas pattern is nonspecific without evidence of ileus, obstruction or free air. Small amount of stool is visualized in the colon. Patient has a history of ascites with recent paracentesis, intra-ab dominal fluid is not excluded on this study. Examination limited somewhat by patient rotation. Heart and mediastinal contours are grossly normal. Chronic interstitial changes are again noted throughout the lungs. There is no acute infiltrate, pleu ral effusion or pneumothorax. Pulmonary vasculature is normal. IMPRESSION: 1. Nonspecific bowel gas pattern. There are no specific findings to suggest bowel obstruction. Patien t has a history of ascites, this cannot be excluded. 2. Chronic interstitial changes in the lungs. There is no evidence of acute cardiopulmonary normality . Report Dictated By: Akua Vale MD at 12/30/2017 4:49 PM Report E-Signed By: Akua Vale MD at 12/30/2017 4:53 PM [id number]
[2017-12-30] MEDS ORDERED: LEVOFLOXACIN/D5W 750 MG/150 ML 150 ML IVPB ONE (17:10)
[2017-12-30 18:15] LABS: PLATELET COUNT, AUTOMATED 159 K/uL (150-450)
[2017-12-30] MEDS ORDERED: INSULIN HUM LISPRO 100 UN/ML 3 ML VIAL SUBQ PRN (20:45)
--- NOTE | 2017-12-30 20:54 | History & Physical ---
History of Present Illness History of Present Illness 72yo male with alcoholic cirrhosis who was brought in for weakness, confusion and somnolence. The history is mostly from his . About a month ago, he had similar symptoms and went to the ER. He was diagnosed with a UTI and was recommended for admission. However, he refused admission, so was sent home on Bactrim. The urine grew Enterococcus Faecalis, so Bactrim sensitivities weren' t done. He had a repeat UA about 2 weeks, that was relatively normal. He was admitted 2 weeks ago for jaundice and ascites. He was discharged a few days later after a paracentesis. Over the last couple of days, he has been more weak. He has difficulty walking. Last night he couldn't get off the floor. He slept most of the day yesterday, and ate very little. His urine output has dropped significantly, such that he only urinates every 12-13 hours. This has occurred over the last couple of days. He denies SOB. He had a fever off 99 yesterday, but didn't report chills. No reported vomiting or diarrhea. He is drinking about 2 ounces of alcohol a day. He has his chronic abdominal pain that might be a bit worse. In the ER, he was given about 750cc of IVF, and Levofloxacin. History Problems: (1) Cirrhosis of liver Status: Chronic (2) Type 2 diabetes mellitus treated with insulin Status: Chronic (3) Hypothyroid Status: Chronic (4) Atrial fibrillation Status: Chronic (5) Morgellons syndrome Status: Chronic (6) Chronic abdominal pain Status: Chronic Home Meds Active Scripts Vitamin B Complex (B COMPLEX) 1 Each Tablet, 1 EACH PO DAILY, #30 TAB 1 Refill Prov:ARNULFO ALCANTARA MD 12/17/17 Spironolactone (SPIRONOLACTONE) 25 Mg Tablet, 25 MG PO BID, #60 TAB 0 Refills Prov:ARNULFO ALCANTARA MD 12/17/17 Diltiazem Hcl (DILTIAZEM 24HR CD) 240 Mg Cap.er.24h, 240 MG PO QDAY, #30 CAP.SR.24H Prov:MANUEL MARTÍNEZ DO 03/19/17 Lorazepam (LORAZEPAM) 1 Mg Tab, 1 MG PO BID, #30 TAB Prov:MANUEL MARTÍNEZ DO 5/3/17 Levothyroxine Sodium (LEVOTHYROXINE SODIUM) 25 Mcg Tablet, 0.025 MG PO QDAY@06, #30 TAB Prov:MANUEL MARTÍNEZ DO 03/19/17 Aspirin (ASPIRIN EC) 81 Mg Tablet.dr, 81 MG PO QDAY, #30 TAB Prov:MANUEL MARTÍNEZ DO 03/19/17 Reported Medications Hyoscyamine Sulfate (HYOSCYAMINE SULFATE) 0.125 Mg Tablet, 0.125 MG PO 12/15/17 Insulin Glargine (LANTUS) 100 Unit/Ml Soln, 6 UNIT SUBQ HS, ML 02/17/17 Allergies: Coded Allergies: cephalexin (Verified Allergy, Severe, ANAPHYLAXIS, 12/02/17) NSAIDS (Non-Steroidal Anti-Inflamma (Verified Allergy, Intermediate, ) tizanidine (Verified Allergy, Unknown, 12/02/17) tramadol (Verified Allergy, Unknown, GI DISTRESS, 12/02/17) Patient History: FH: heart attack FATHER FHx: skin cancer MOTHER Hx Smoking: Yes Smoking Status: Former Smoker Exposure to Second Hand Smoke?: Yes Caffeine Intake: Coffee Caffeine/Cups Per Day: 1 cup Hx Alcohol Use: Yes (3 Scotch whisky drinks a day (2 ounces each)) Hx Substance Use Disorder: No Review of Systems All Systems Reviewed/Normal: Yes, Except as Noted Exam Vital Signs Vital Signs Date Time Temp Pulse Resp B/P (MAP) Pulse Ox O2 Delivery O2 Flow Rate FiO2 12/30/17 18:35 97 94 12/30/17 18:30 ???/??? (3125) 12/30/17 15:44 98.0 16 Room Air General Appearance: Other (Intermittently flinching with abdominal pain, but then comfortable and breathing normally) Neuro: No Gross deficits (Answers some questions, but is sleepy. ) Eyes: PERRLA ENT: Moist Mucous Membranes Cardiovascular: Regular Rate and Rhythm Respiratory: Clear to Auscultation GI: Other (distended with caput medusa. Soft, he reports diffuse tenderness with palpation. No peritoneal signs. Hypoactive BS. ) Integumentary: Jaundice Medical Decision Making Data Points Result Diagram: 12/30/17 1750 12/30/17 1750 Item Value Date Time Urine Bacteria Many /HPF H 12/30/17 1628 Urine Renal Epithelial Cells Many /LPF H 12/30/17 1628 Urine Squamous Epithelial Cells None /LPF 12/30/17 1628 Urine WBC 32945 /HPF 12/30/17 1628 Urine RBC 242 /HPF 12/30/17 1628 Urine Leukocyte Esterase Moderate H 12/30/17 1628 Urine Urobilinogen 4.0 mg/dL H 12/30/17 1628 Urine Ketones Trace mg/dL 12/30/17 1628 Urine Protein 100 mg/dL 12/30/17 1628 Neutrophils (%) (Auto) 72.6 % H 12/30/17 1750 Mean Corpuscular Volume 115.9 fL H 12/30/17 1750 Lactate 3.2 mmol/L H 12/30/17 1750 Calcium Level 8.6 mg/dl 12/30/17 1750 Total Bilirubin 9.1 mg/dl H 12/30/17 1750 Aspartate Amino Transf (AST/SGOT) 152 U/L H 12/30/17 1750 Alanine Aminotransferase (ALT/SGPT) 87 U/L H 12/30/17 1750 Alkaline Phosphatase 709 U/L H 12/30/17 1750 Total Protein 7.7 gm/dl 12/30/17 1750 Albumin 3.1 g/dl L 12/30/17 1750 Total Bilirubin 10.8 mg/dl H 12/16/17 0545 Aspartate Amino Transf (AST/SGOT) 181 U/L H 12/16/17 0545 Alanine Aminotransferase (ALT/SGPT) 71 U/L H 12/16/17 0545 Alkaline Phosphatase 618 U/L H 12/16/17 0545 Sodium Level 124 mmol/L *L 12/16/17 0545 Sodium Level 123 mmol/L *L 12/15/17 1714 Total Bilirubin 11.4 mg/dl H 12/15/17 1714 Aspartate Amino Transf (AST/SGOT) 191 U/L H 12/15/17 1714 Alanine Aminotransferase (ALT/SGPT) 74 U/L H 12/15/17 1714 Alkaline Phosphatase 669 U/L H 12/15/17 1714 EKG / Imaging Imaging [address] way of abd - 1. Nonspecific bowel gas pattern. There are no specific findings to suggest bowel obstruction. Patient has a history of ascites, this cannot be excluded. 2. Chronic interstitial changes in the lungs. There is no evidence of acute cardiopulmonary normality. Assessment and Plan Problems: (1) Urinary tract infection Status: Acute Assessment & Plan: He presented with a couple days of weakness and increased somnolence. He had a UTI from enterococcus faecalis about a month ago. He has much pyuria and an elevated lactate. BP/P are stable. He has been hydrated and started on Levofloxacin, which will be continued. Will recheck a lactate tonight, but it is likely related to dehydration. He potentially had about 500cc in his bladder by US, so will have a catheter placed. Blood cultures and urine culture pending. OT/PT to evaluate. (2) Hyponatremia Status: Acute Assessment & Plan: Unchanged from 2 weeks ago. Will follow and fluid restrict. BMP tonight after hydration. (3) Cirrhosis of liver Status: Chronic Assessment & Plan: Secondary to chronic alcohol use and he is still drinking 2 ounces a day. Check ammonia and INR. Follow CMP. His ascites is relatively stable and he is not symptomatic enough to require paracentesis. The last was . (4) Chronic abdominal pain Status: Chronic Assessment & Plan: He has been off of narcotics for about 4 years. His would like to have him transferred to a palliative pain clinic in [place], when he is over this acute issue. He has been evaluated by a Dr. Calles. Will ask SW to see. (5) Type 2 diabetes mellitus treated with insulin Status: Chronic Assessment & Plan: Will hold Lantus and check glucose AC and HS with SSI level 2 to cover. (6) Hypothyroid Status: Chronic Assessment & Plan: Continue levothyroxine. (7) Atrial fibrillation Status: Chronic Assessment & Plan: Rate controlled with diltiazem, which will be continued. Not on stroke prophylaxis. Copies to: LIDIA AVALOS DO Venous Thromboembolism Antithrombotics Is Pt On Any Antithrombotics?: No Exam Sepsis Risk: No Definite Risk ABBIE ZEPEDA MD Dec 30, 2017 20:54
[2017-12-30 20:59] VITALS: BP 147/99
[2017-12-30] MEDS: NS(*) 0.9% 1000 ML BAG 1,000 ML IV PRN (21:12)
[2017-12-30] MEDS: MELATONIN 3 MG TAB PO SCH (23:36)
[2017-12-31 03:22] VITALS: BP 139/86
[2017-12-31] MEDS: LEVOTHYROXINE SOD 0.025 MG TAB PO SCH (05:17)
[2017-12-31] MEDS: NS(*) 0.9% 1000 ML BAG 1,000 ML IV PRN ×2 (05:17→20:22)
[2017-12-31 05:58] LABS: PLATELET COUNT, AUTOMATED 156 K/uL (150-450)
[2017-12-31 06:13] LABS: INR 1.25
[2017-12-31 06:55] VITALS: BP 153/79
[2017-12-31 07:20] VITALS: BP 129/95
[2017-12-31] MEDS: DILTIAZEM CD 120 MG CAPCR PO SCH (08:31)
[2017-12-31] MEDS: ENOXAPARIN 30 MG/0.3 ML SYR SC SCH (08:31)
[2017-12-31 09:29] VITALS: Ht 182.9 cm; Wt 120.7 kg
--- NOTE | 2017-12-31 12:40 | Hospitalist Progress Note ---
Subjective Progress Notes Subjective He reports "no real changes". No fever. Abdominal distension/discomfort "OK...about the same". Physical Exam Vital Signs Date Time Temp Pulse Resp B/P (MAP) Pulse Ox O2 Delivery O2 Flow Rate FiO2 12/31/17 09:16 94 Nasal Cannula 1.0 12/31/17 07:20 98.2 98 16 129/95 (106) Intake and Output 01/01/18 07:00 Intake Total 1008 ml Balance 1008 ml IV Total 1008 ml General Appearance: Alert, Awake, Other (jaundiced) Neuro: Other (moves all four extremities) Neck: No Masses Cardiovascular: Regular Rate and Rhythm Respiratory: Clear to Auscultation GI: Other (distended/soft/BS present) Extremities: Warm, Perfused, Edema (trace) Integumentary: Generalized Fragile Skin Result Diagram: 12/31/1752712/31/17527 Assessment and Plan Problems: (1) Urinary tract infection Status: Acute Assessment & Plan: He presented with a couple days of weakness and increased somnolence. He had a UTI from enterococcus faecalis about a month ago. He has significant pyuria. BP/P are stable. He has been started on Levofloxacin. He had a catheter placed for moderate urinary retention. Blood cultures and urine culture pending. OT/PT to evaluate. (2) Hyponatremia Status: Acute Assessment & Plan: Unchanged from 2 weeks ago. Will follow and fluid restrict. (3) Cirrhosis of liver Status: Chronic Assessment & Plan: Secondary to chronic alcohol use and he is still drinking 2 ounces a day. Ammonia is normal at 11. INR is modestly elevated at 1.25. His ascites is relatively stable and he is not symptomatic enough to require paracentesis - the last was 12/16/2017. (4) Chronic abdominal pain Status: Chronic Assessment & Plan: He has been off of narcotics for about 4 years. His would like to have him transferred to a palliative pain clinic in [place], when he is over this acute issue. He has been evaluated by a Dr. Calles. Will have SW see. (5) Type 2 diabetes mellitus treated with insulin Status: Chronic Assessment & Plan: Will hold Lantus for now, check glucose AC and HS, and SSI level 2 to cover. (6) Hypothyroid Status: Chronic Assessment & Plan: Continue levothyroxine. (7) Atrial fibrillation Status: Chronic Assessment & Plan: Rate controlled with diltiazem. Not on anticoagulant for stroke prophylaxis due to liver disease. Exam Sepsis Risk: No Definite Risk ARNULFO ALCANTARA MD Dec 31, 2017 12:40
[2017-12-31 14:57] VITALS: BP 154/85
[2017-12-31] MEDS ORDERED: LEVOFLOXACIN/D5W 750 MG/150 ML 150 ML IVPB SCH (17:00)
[2017-12-31] MEDS: MELATONIN 3 MG TAB PO SCH (20:19)
[2017-12-31 20:46] VITALS: BP 123/77
[2017-12-31 23:45] VITALS: BP 108/64
[2018-01-01 02:59] VITALS: BP 132/76
[2018-01-01] MEDS: LEVOTHYROXINE SOD 0.025 MG TAB PO SCH (05:41)
[2018-01-01 06:53] VITALS: BP 120/65
[2018-01-01] MEDS: NS(*) 0.9% 1000 ML BAG 1,000 ML IV PRN (06:53)
[2018-01-01 08:54] LABS: PLATELET COUNT, AUTOMATED 178 K/uL (150-450)
[2018-01-01] MEDS ORDERED: NS(*) 0.9% 1000 ML BAG 1,000 ML IV PRN (08:54)
[2018-01-01] MEDS: DILTIAZEM CD 120 MG CAPCR PO SCH (09:01)
[2018-01-01] MEDS: ENOXAPARIN 30 MG/0.3 ML SYR SC SCH (09:02)
[2018-01-01 10:35] VITALS: BP 130/78
[2018-01-01] MEDS ORDERED: TAMSULOSIN HCL 0.4 MG CAP PO ONE (14:45)
[2018-01-01 15:07] VITALS: BP 140/93
[2018-01-01] MEDS ORDERED: LEVOFLOXACIN 750 MG TAB PO SCH (17:00)
[2018-01-01] MEDS ORDERED: LEVO750T27 PO (18:30)
[2018-01-01] MEDS ORDERED: TAMS0.4C70 PO (18:30)
[2018-01-01] MEDS ORDERED: SPIR25TA78 PO (18:30)
--- NOTE | 2018-01-01 18:37 | Hospitalist Depart ---
Discharge Summary Reason for Hosp/Final Diag: (1) Urinary tract infection Status: Acute Hospital Course & Plan: He presented with a couple days of weakness and increased somnolence. He had a UTI from enterococcus faecalis about a month ago. BP/P have been stable. He was started on Levofloxacin. He had a catheter placed for moderate urinary retention. He had an elevated lactate, that normalized with hydration. Blood cultures are negative and the urine culture is growing sensitive enterococcus faecalis. He will go home on 2 more days of Levofloxacin at 750mg. (2) Urine retention Status: Acute Hospital Course & Plan: He presented with moderate urine retention of about 500cc. It was likely secondary to inflammation of the bladder from the UTI and probable BPH. He had a catheter placed. It was removed today and he was finally able to urinate after getting a dose of Flomax. The bladder scanner showed a PVR of 500-900cc, so a catheter was replaced. However, there was very little urine output. The US was used and showed significant abdominal ascites, but no obvious dilated bladder. The catheter has been removed and he will go home on Flomax. (3) Hyponatremia Status: Acute Hospital Course & Plan: Unchanged from 2 weeks ago. Will follow and fluid restrict. (4) Cirrhosis of liver Status: Chronic Hospital Course & Plan: Secondary to chronic alcohol use and he is still drinking 2 ounces a day. Ammonia is normal at 11. INR is modestly elevated at 1.25. His ascites is relatively stable and he is not symptomatic enough to require paracentesis - the last was 12/16/2017. He will go home on spironolactone 25mg a day. He is to get a BMP in a week. (5) Chronic abdominal pain Status: Chronic Hospital Course & Plan: He has been off of narcotics for about 4 years. His would like to have him transferred to a palliative pain clinic in [place] , when he is over this acute issue, but it is not an inpatient unit. It has been suggested that they follow up as an outpatient and she expressed understanding. (6) Type 2 diabetes mellitus treated with insulin Status: Chronic Hospital Course & Plan: Lantus was held upon admission. His glucose has consistently been less than 150. He will not restart Lantus and keep a glucose log. We will defer to his PCP about restarting it. (7) Hypothyroid Status: Chronic Hospital Course & Plan: Continue levothyroxine. (8) Atrial fibrillation Status: Chronic Hospital Course & Plan: Rate controlled with diltiazem. Not on anticoagulant for stroke prophylaxis due to liver disease and fall risk. Departure Weight (Pounds): 266 Weight (Ounces): 2.0 Result Diagram: 01/01/18 0841 01/01/18 08 Item Value Date Time Sodium Level 124 mmol/L *L 12/30/17 175 Blood Urea Nitrogen 8 mg/dl L 12/30/17 1750 Creatinine 1.10 mg/dl 12/30/17 1750 Lactate 3.2 mmol/L H 12/30/17 1750 Calcium Level 8.6 mg/dl 12/30/17 1750 Total Bilirubin 9.1 mg/dl H 12/30/17 1750 Aspartate Amino Transf (AST/SGOT) 152 U/L H 12/30/17 1750 Alanine Aminotransferase (ALT/SGPT) 87 U/L H 12/30/17 1750 Alkaline Phosphatase 709 U/L H 12/30/17 1750 White Blood Count 9.5 k/uL 12/30/17 1750 White Blood Count 8.4 k/uL 12/31/17 0528 White Blood Count 9.2 k/uL 01/01/18 0841 Hemoglobin 15.0 g/dL 01/01/18 08 Hemoglobin 15.0 g/dL 12/31/17 0528 Hemoglobin 15.2 g/dL 12/30/17 1750 Platelet Count 159 K/uL 12/30/17 1750 Platelet Count 156 K/uL 12/31/17 0528 Platelet Count 178 K/uL 01/01/18 0841 Neutrophils (%) (Auto) 73.4 % H 01/01/18 08 Neutrophils (%) (Auto) 72.4 % 12/31/17 05 Neutrophils (%) (Auto) 72.6 % H 12/30/17 175 Prothromb Time International Ratio 1.25 12/31/17 05 Sodium Level 123 mmol/L *L 12/30/172234 Sodium Level 124 mmol/L *L 12/31/17527 Carbon Dioxide Level 21 mmol/L L 12/30/172234 Carbon Dioxide Level 21 mmol/L L 12/31/17527 Blood Urea Nitrogen 8 mg/dl L 12/30/172234 Blood Urea Nitrogen 8 mg/dl L 12/31/17 0528 Creatinine 1.00 mg/dl 12/30/172234 Creatinine 1.00 mg/dl 12/31/17 0528 Calcium Level 8.1 mg/dl L 12/30/172234 Calcium Level 8.4 mg/dl 12/31/17 0528 Total Bilirubin 8.8 mg/dl H 12/31/17 0528 Aspartate Amino Transf (AST/SGOT) 136 U/L H 12/31/17 0528 Alanine Aminotransferase (ALT/SGPT) 79 U/L H 12/31/17 0528 Alkaline Phosphatase 610 U/L H 12/31/17 0528 Ammonia 11 UMOL/L 12/30/172234 Lactate 1.9 mmol/L 12/30/172234 Alkaline Phosphatase 528 U/L H 01/01/18 0841 Alanine Aminotransferase (ALT/SGPT) 69 U/L H 01/01/18 0841 Aspartate Amino Transf (AST/SGOT) 124 U/L H 01/01/18 0841 Total Bilirubin 7.7 mg/dl H 01/01/18 0841 Random Glucose 148 mg/dl H 01/01/18 0841 Blood Urea Nitrogen 8 mg/dl L 01/01/18 0841 Creatinine 0.90 mg/dl 01/01/18 0841 Urine Squamous Epithelial Cells None /LPF 12/30/17 1628 Urine Renal Epithelial Cells Many /LPF H 12/30/17 1628 Urine Bacteria Many /HPF H 12/30/17 1628 Urine Mucus None /HPF 12/30/17 1628 Urine WBC 44859 /HPF 12/30/17 1628 Urine RBC 242 /HPF 12/30/17 1628 Urine Leukocyte Esterase Moderate H 12/30/17 1628 Urine Urobilinogen 4.0 mg/dL H 12/30/17 1628 Urine Blood Small 12/30/17 1628 Urine Ketones Trace mg/dL 12/30/17 1628 Blood cultures without growth from 12/30/17 SPEC #: [id number] HOLGER: 12/30/17-170 STATUS: COMP REQ #: [id number] RECD: 12/30/17-[address]: [facility] SOURCE: CATHUR ENTR: 12/30/17-838 ALAN JONES: YANIV: ORDERED: CULT URINE Procedure Result Verified URINE CULTURE Final 01/01/18 Organism 1 ENTEROCOCCUS FAECALIS (GRP D) >100,000 COL/ML ENT FAEC M.I.C. RX --------- --- AMPICILLIN <=2 S AMPICILLIN/SULBACTAM S CIPROFLOXACIN 1 S LEVOFLOXACIN 1 S LINEZOLID 2 S NITROFURANTOIN <=16 S BENZYLPENICILLIN 2 S TETRACYCLINE <=1 S VANCOMYCIN [address] of the abdomen - 1. Nonspecific bowel gas pattern. There are no specific findings to suggest bowel obstruction. Patient has a history of ascites, this cannot be excluded. 2. Chronic interstitial changes in the lungs. There is no evidence of acute cardiopulmonary normality. Condition: Improved Discharge: Home PT/OT Follow Up For: PT For Strengthening, OT For ADL's Home Health RN Follow Up For: Medication Management Home Health MACHINE LOAD CLERK Follow Up For: ADL Assistance Discharge Instructions Home Meds Active Scripts Levofloxacin 750 Mg Tab (LEVOFLOXACIN 750 MG TAB) 750 Mg Tablet, 750 MG PO QPM, #2 Prov:ABBIE ZEPEDA MD 01/01/18 Tamsulosin Hcl (TAMSULOSIN HCL) 0.4 Mg Cap.er.24h, 0.4 MG PO QDAY, #30 Prov:ABBIE ZEPEDA MD 18 Spironolactone (SPIRONOLACTONE) 25 Mg Tablet, 25 MG PO DAILY for 30 Days, TAB 0 Refills Prov:ABBIE ZEPEDA MD 01/01/18 Vitamin B Complex (B COMPLEX) 1 Each Tablet, 1 EACH PO DAILY, #30 TAB 1 Refill Prov:ARNULFO ALCANTARA MD 12/17/17 Diltiazem Hcl (DILTIAZEM 24HR CD) 240 Mg Cap.er.24h, 240 MG PO QDAY, #30 CAP.SR.24H Prov:MANUEL MARTÍNEZ DO 03/19/17 Levothyroxine Sodium (LEVOTHYROXINE SODIUM) 25 Mcg Tablet, 0.025 MG PO QDAY@06, #30 TAB Prov:MANUEL MARTÍNEZ DO 03/19/17 Aspirin (ASPIRIN EC) 81 Mg Tablet.dr, 81 MG PO QDAY, #30 TAB Prov:MANUEL MARTÍNEZ DO 03/19/17 Discontinued Reported Medications Hyoscyamine Sulfate (HYOSCYAMINE SULFATE) 0.125 Mg Tablet, 0.125 MG PO 12/15/17 Insulin Glargine (LANTUS) 100 Unit/Ml Soln, 6 UNIT SUBQ HS, ML 02/17/17 Discontinued Scripts Lorazepam (LORAZEPAM) 1 Mg Tab, 1 MG PO BID, #30 TAB Prov:MANUEL MARTÍNEZ DO 03/19/17 Diet: Fluid Restricted Activity: As Tolerated Special Instructions: Fluid restrict to 2 liters daily. Check glucose daily. Check it at different times and log the results. Bring the results to your PCP. BMP in a week. Follow up with PCP in 1-2 weeks Copies to: LIDIA AVALOS DO Venous Thromboembolism Antithrombotics Is Pt On Any Antithrombotics?: No [id number]-[id number] Certification Face to Face Home Health Certification Institutional Provider conducted the [id number] encounter. Electronic Undersigning Physician Certifies Home Health. I certify that the patient has been under my care and that I had a [id number] encounter that meets the physician [id number] encounter requirements with this patient. This patient is home-bound due to safety issues and continues to require assistance with ADL's. I certify that based on my findings, that Nursing, Aides and the following Home Health services are medically necessary: Medical Necessity: Nursing, Rehab Date Face to Face Conducted: Jan 01, 2018 ABBIE ZEPEDA MD Jan 01, 2018 18:37
--- NOTE | 2018-01-02 07:28 | Medical Nutrition Therapy ---
Nutrition Anthropometrics Height (Inches): 72.00 Height (Calculated Centimeters: 182.425641 Weight (Pounds): 266 Weight (Calculated Kilograms): 120.712 BMI Calculated: 36.07 Ramy Nutrition Score: Adequate Ramy Nutrition Risk Score: 17 Dietary Referral Nutrition Risk Factors: Unplanned Loss >10lbs Nutrition Risk Comment: Physical Findings Physical Appearance: Obese BMI 30-39 Skin Appearance Skin Appearance: Edema Edema Location Modifier: Both Edema Location: Lower Extremity Type of Edema: Degree of Edema: 1+ Gastrointestinal Symptoms GI Symtoms: Bloating Tube Present: Bowel Sounds: Recent Bowel Pattern: Stool Characteristics: Nutritional Diagnosis Nutritional Risk Acuity 2: Liver Cirrhosis Nutritional Risk Acuity 3: Fair Appetite Past Medical History: Morgellon's syndrome, chronic abd pain, T2DM, a-fib, liver cirrhosis, seizures, HTN, COPD,hyponatremia Nutritional Acuity: 2-Moderate Energy Requirement: 2604 (MSt.J AF 1.3) Protein Requirement: 96 (0.8 g/kg) Fluid Requirement: 1500 (Fluid Restricted diet) Nutrition Intervention: Cont diet as ordered, Encourage intake Do Not Serve Any of the Follow: Broccoli, Brussel Sprouts, Spinach, [place] Lettuce, Cranberry Juice Nutrition Monitoring & Eval Nutrition Goals: Fluid Restrictions RD Patient Assessment Time: [address] Assessment Type: RD Assessment Patient Nutrition Acuity: 2-Moderate Follow Up Date: Jan 03, 2018 Nutritional Comment: 12/31) Pt admitted for weakness, confusion and somnolence. Pt has liver cirrhosis. Pt is states decreased urine output over the past few days. peeing once every 12-13 hours. Pt. has a hx of T2DM, hypothyroidism, AFIB, Morgellons syndrom, chronic abdominal pain and alcohol abuse. Labs: 12/31) Na 124, AST 136, ALT 79, Alb 2.8, Alk Phos 610, Receiving insulin. Pt is on a fluid restricted diet, refused breakfast this morning. 01/01) Pt admitted for weakness, confusion and somnolence. Pt has liver cirrhosis. Pt is states decreased urine output over the past few days. Pt. has a hx of T2DM, hypothyroidism, AFIB, Morgellons syndrom, chronic abdominal pain and alcohol abuse. Labs: 01/01)Na 127, AST 124, ALT 69, Alb 2.6, Random Glu 148, WBG 103, Ca 8.0.Receiving insulin. Pts states they have a good knowledge of diabetes diet Pt is on a fluid restricted diet, Po intake 68% x 3 meals. Pans to be D/C today. Will monitor weight, labs, po intake IONA CATES Jan 01, 2018 13:58
[2018-01-02] MEDS ORDERED: INFLUENZA VIRUS VAC 0.5 ML SYR IM ONLY ONE (09:00)
[2018-01-02] MEDS ORDERED: TAMSULOSIN HCL 0.4 MG CAP PO SCH (09:00)
== END 2018-01-01 19:25 | disposition home health service (06) | DRG 690 ==
LOC: ER 15:53 → MED 20:35
PROVIDERS: ADMIT Internal Medicine; ATTEND Internal Medicine
DX: N30.01 Acute cystitis with hematuria (principal); E87.1 Hypo-osmolality and hyponatremia; F10.10 Alcohol abuse, uncomplicated; B95.2 Enterococcus as the cause of diseases classified elsewhere; N40.1 Benign prostatic hyperplasia with lower urinary tract symptoms; K70.31 Alcoholic cirrhosis of liver with ascites; E03.9 Hypothyroidism, unspecified; I48.2 Chronic atrial fibrillation; E11.9 Type 2 diabetes mellitus without complications; E86.0 Dehydration; G89.29 Other chronic pain; Z88.8 Allergy status to other drugs, medicaments and biological substances; Z79.4 Long term (current) use of insulin; Z87.891 Personal history of nicotine dependence
CPT/HCPCS: 36415; 36416; 74022; 81001; 82040; 82140; 82247; 82310; 82374; 82435; 82565; 82947; 82948; 83605; 84075; 84132; 84155; 84295; 84450; 84460; 84520; 85025; 85610; 87040; 87077; 87088; 87186; 96361; 96365; 96366; 97161; 97165; 99285; J1650; J1956; J7030

== ENCOUNTER → 2017-12-30 | Outpatient (CLI) | payer MEDICARE, MEDICAID ==
[~2017-12-30] MED LIST changes: +INSU100V24 SUBQ; +LEVO150T72 PO; +SPIR25TA78 PO; +TAMS0.4C70 PO; +VITA-175 PO
[2017-12-31 09:29] VITALS: BMI 36.1
== END ==
LOC: AMB 15:26
PROVIDERS: ATTEND Nurse Practitioner
DX: R53.1 Weakness (principal); R39.198 Other difficulties with micturition; R10.30 Lower abdominal pain, unspecified; R17 Unspecified jaundice
CPT/HCPCS: A0425; A0429

== ENCOUNTER 2018-01-11 09:50 | Inpatient (IN) | payer MEDICARE, MEDICAID ==
[2017-12-31 09:29] VITALS: Wt 127.0 kg
[~2018-01-11 09:50] MED LIST changes: -INSU100V24 SUBQ; -LEVO150T72 PO
--- NOTE | 2018-01-11 10:24 | ER Report ---
History and Physical Time Seen By MD: 10:23 Hx. of Stated Complaint: NOT FEELING WELL. FALLING. WEAK. 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 He is brought to the emergency department today by ambulance for recurrent falls. Patient fell again this morning and neighbors had to assist him up. is unable to care for him at home. He has a history of chronic abdominal pain. Patient has been seen for similar episodes in the past recommended admission at those times and patient I would sign out against medical advice. REVIEW OF SYSTEMS: Constitutional: [No fever, no chills.] Eyes: [No discharge.] ENT: [No sore throat.] Cardiovascular: [No chest pain, no palpitations.] Respiratory: [No cough, no shortness of breath.] Gastrointestinal: [No abdominal pain, no vomiting.] Genitourinary: [No hematuria.] Musculoskeletal: [No back pain.] Skin: [No rashes.] Neurological: [No headache.] Allergies: Coded Allergies: cephalexin (Verified Allergy, Severe, ANAPHYLAXIS, 01/11/18) NSAIDS (Non-Steroidal Anti-Inflamma (Verified Allergy, Intermediate, ) tizanidine (Verified Allergy, Unknown, 01/11/18) tramadol (Verified Allergy, Unknown, GI DISTRESS, 01/11/18) Home Meds Active Scripts Levofloxacin 750 Mg Tab (LEVOFLOXACIN 750 MG TAB) 750 Mg Tablet, 750 MG PO QPM, #2 Prov:ABBIE ZEPEDA MD 01/01/18 Tamsulosin Hcl (TAMSULOSIN HCL) 0.4 Mg Cap.er.24h, 0.4 MG PO QDAY, #30 Prov:ABBIE ZEPEDA MD 01/01/18 Spironolactone (SPIRONOLACTONE) 25 Mg Tablet, 25 MG PO DAILY for 30 Days, TAB 0 Refills Prov:ABBIE ZEPEDA MD 01/01/18 Vitamin B Complex (B COMPLEX) 1 Each Tablet, 1 EACH PO DAILY, #30 TAB 1 Refill Prov:ARNULFO GILL MD 12/17/17 Diltiazem Hcl (DILTIAZEM 24HR CD) 240 Mg Cap.er.24h, 240 MG PO QDAY, #30 CAP.SR.24H Prov:MANUEL MRATÍNEZ DO 03/19/17 Levothyroxine Sodium (LEVOTHYROXINE SODIUM) 25 Mcg Tablet, 0.025 MG PO QDAY@06, #30 TAB Prov:MANUEL MARTÍNEZ DO 03/19/17 Aspirin (ASPIRIN EC) 81 Mg Tablet.dr, 81 MG PO QDAY, #30 TAB Prov:MANUEL MARTÍNEZ DO 03/19/17 Past Medical/Surgical History Past medical history for cirrhosis of the liver, type II diabetes, hypothyroidism, atrial fibrillation, chronic abdominal pain Hx Smoking: Yes Smoking Status: Former Smoker Exposure to Second Hand Smoke?: Yes Hx Substance Use Disorder: No Hx Alcohol Use: Yes (3 Scotch whisky drinks a day (2 ounces each)) Constitutional Vital Sign - Last 24 Hours 01/11/18 01/11/18 01/11/18 01/11/18 09:47 09:50 09:55 10:00 Temp 96.7 Pulse 66 ??? Resp 26 B/P (MAP) 113/57 113/57 (75) 110/55 (73) Pulse Ox 94 O2 Delivery Room Air 01/11/18 01/11/18 01/11/18 01/11/18 10:05 10:20 10:30 10:35 Pulse 68 70 68 Resp 12 14 12 B/P (MAP) 121/60 (80) Pulse Ox 94 96 94 01/11/18 01/11/18 01/11/18 01/11/18 10:50 10:55 11:10 11:25 Pulse 68 69 ? Resp 15 12 Pulse Ox 96 95 01/11/18 01/11/18 01/11/18 01/11/18 11:30 11:40 11:44 11:55 Pulse ??? 62 Resp 19 B/P (MAP) ???/??? (1665) 107/47 (67) Pulse Ox 100 01/11/18 01/11/18 11:59 12:10 Pulse 65 Resp 13 B/P (MAP) 107/81 (90) Pulse Ox 94 Physical Exam General/Constitutional: Patient is awake, alert, nontoxic and in no acute respiratory distress. Head: Normocephalic and atraumatic. Eyes: Conjunctival clear, Pupils are equal and reactive to light. Extraocular muscles are intact and symmetrical. Scleral icterus. Ears:External canals are clear. Tympanic membranes are clear with normal landmarks and light reflex. Nares: No rhinorrhea or bleeding. Turbinates are pink and moist. Oropharyngeal: Mucous membranes are moist. There is no pharyngeal erythema or exudate. There are no palatal petechiae. Uvula is midline and symmetrical. Neck: Supple, no adenopathy. Cardiovascular: Heart is regular rate and rhythm without audible murmurs, rubs or gallops. Pulmonary: Lungs are clear to auscultation bilaterally. There are no wheezes, rales, or rhonchi. Chest rise is symmetrical Abdomen: Effusive abdominal tenderness without guarding or rebound; abdomen feels tense; Extremities: No gross deformities, No peripheral cyanosis. Able to move all 4 extremities. Neuro: Alert and oriented X3, Skin: Jaundiced skin is dry no rashes Medical Decision Making Data Points Result Diagram: 01/11/18 1047 01/11/18 1047 Laboratory Hematology Test 01/11/18 10:47 01/11/18 10:51 Red Blood Count 3.37 M/uL (4.00-5.60) Mean Corpuscular Volume 116.4 fL (80.0-96.0) Mean Corpuscular Hemoglobin 41.1 pg (26.0-33.0) Mean Corpuscular Hemoglobin Concent 35.3 g/dL (32.0-36.0) Red Cell Distribution Width 15.6 % (11.5-14.5) Mean Platelet Volume 7.5 fL (7.2-11.1) Neutrophils (%) (Auto) % (39.4-72.5) Lymphocytes (%) (Auto) % (17.6-49.6) Monocytes (%) (Auto) % (4.1-12.4) Eosinophils (%) (Auto) % (0.4-6.7) Basophils (%) (Auto) % (0.3-1.4) Nucleated RBC Relative Count (auto) /100WBC Neutrophils # (Auto) K/uL (2.0-7.4) Lymphocytes # (Auto) K/uL (1.3-3.6) Monocytes # (Auto) K/uL (0.3-1.0) Eosinophils # (Auto) K/uL (0.0-0.5) Basophils # (Auto) K/uL (0.0-0.1) Nucleated RBC Absolute Count (auto) K/uL Neutrophils % (Manual) 72 % (39.4-72.5) Band Neutrophils % 2 % Lymphocytes % (Manual) 17 % (17.6-49.6) Atypical Lymphocytes % 0 % Monocytes % (Manual) 7 % (4.1-12.4) Eosinophils % (Manual) 0 % (0.4-6.7) Basophils % (Manual) 0 % (0.3-1.4) Metamyelocytes % 2 % Macrocytosis 3+ Peripheral Blood Smear Yes Y/N Sodium Level 119 mmol/L (137-145) Potassium Level 4.7 mmol/L (3.5-5.0) Chloride Level 89 mmol/L (98-107) Carbon Dioxide Level 17 mmol/L (22-30) Blood Urea Nitrogen 16 mg/dl (9-21) Creatinine 1.50 mg/dl (0.66-1.25) Glomerular Filtration Rate Calc 46.3 Random Glucose 123 mg/dl (75-110) Calcium Level 8.5 mg/dl (8.4-10.2) Magnesium Level 1.7 mg/dl (1.7-2.2) Total Bilirubin 8.8 mg/dl (0.2-1.3) Direct Bilirubin 6.6 mg/dl (0.0-0.3) Aspartate Amino Transf (AST/SGOT) 120 U/L (0-35) Alanine Aminotransferase (ALT/SGPT) 78 U/L (0-56) Alkaline Phosphatase 687 U/L (0-126) Ammonia 28 UMOL/L (9-33) Total Creatine Kinase 76 U/L (55-170) Troponin I 0.015 ng/ml Total Protein 7.4 gm/dl (6.3-8.2) Albumin 3.0 g/dl (3.5-5.0) Lipase 126 U/L (23-300) Salicylates Level < 10 mg/L Salicylate Last Dose Date unk Acetaminophen Level < 10 ug/ml Serum Alcohol < 10 mg/dl Prothrombin Time 14.4 seconds (12.0-14.4) Prothromb Time International Ratio 1.12 Activated Partial Thromboplast Time 39 seconds (23-35) Chemistry Test 01/11/18 10:47 01/11/18 10:51 White Blood Count 9.4 k/uL (4.5-11.0) Red Blood Count 3.37 M/uL (4.00-5.60) Hemoglobin 13.8 g/dL (14.0-18.0) Hematocrit 39.2 % (42.0-52.0) Mean Corpuscular Volume 116.4 fL (80.0-96.0) Mean Corpuscular Hemoglobin 41.1 pg (26.0-33.0) Mean Corpuscular Hemoglobin Concent 35.3 g/dL (32.0-36.0) Red Cell Distribution Width 15.6 % (11.5-14.5) Platelet Count 171 K/uL (150-450) Mean Platelet Volume 7.5 fL (7.2-11.1) Neutrophils (%) (Auto) % (39.4-72.5) Lymphocytes (%) (Auto) % (17.6-49.6) Monocytes (%) (Auto) % (4.1-12.4) Eosinophils (%) (Auto) % (0.4-6.7) Basophils (%) (Auto) % (0.3-1.4) Nucleated RBC Relative Count (auto) /100WBC Neutrophils # (Auto) K/uL (2.0-7.4) Lymphocytes # (Auto) K/uL (1.3-3.6) Monocytes # (Auto) K/uL (0.3-1.0) Eosinophils # (Auto) K/uL (0.0-0.5) Basophils # (Auto) K/uL (0.0-0.1) Nucleated RBC Absolute Count (auto) K/uL Neutrophils % (Manual) 72 % (39.4-72.5) Band Neutrophils % 2 % Lymphocytes % (Manual) 17 % (17.6-49.6) Atypical Lymphocytes % 0 % Monocytes % (Manual) 7 % (4.1-12.4) Eosinophils % (Manual) 0 % (0.4-6.7) Basophils % (Manual) 0 % (0.3-1.4) Metamyelocytes % 2 % Macrocytosis 3+ Peripheral Blood Smear Yes Y/N Glomerular Filtration Rate Calc 46.3 Calcium Level 8.5 mg/dl (8.4-10.2) Magnesium Level 1.7 mg/dl (1.7-2.2) Total Bilirubin 8.8 mg/dl (0.2-1.3) Direct Bilirubin 6.6 mg/dl (0.0-0.3) Aspartate Amino Transf (AST/SGOT) 120 U/L (0-35) Alanine Aminotransferase (ALT/SGPT) 78 U/L (0-56) Alkaline Phosphatase 687 U/L (0-126) Ammonia 28 UMOL/L (9-33) Total Creatine Kinase 76 U/L (55-170) Troponin I 0.015 ng/ml Total Protein 7.4 gm/dl (6.3-8.2) Albumin 3.0 g/dl (3.5-5.0) Lipase 126 U/L (23-300) Salicylates Level < 10 mg/L Salicylate Last Dose Date unk Acetaminophen Level < 10 ug/ml Serum Alcohol < 10 mg/dl Prothrombin Time 14.4 seconds (12.0-14.4) Prothromb Time International Ratio 1.12 Activated Partial Thromboplast Time 39 seconds (23-35) Coagulation Test 01/11/18 10:51 Prothrombin Time 14.4 seconds Prothromb Time International Ratio 1.12 Activated Partial Thromboplast Time 39 seconds Toxicology Test 01/11/18 10:47 Salicylates Level < 10 mg/L Salicylate Last Dose Date unk Acetaminophen Level < 10 ug/ml Serum Alcohol < 10 mg/dl EKG/Imaging EKG Interpretation EKG shows sinus rhythm with first-degree AV block. Ventricular rate is 67 bpm Monitor Interpretation: Normal Sinus Rhythm Imaging [place] [facility] [place] Buster Kaur : 1945 MR: [id number] V: [id number] EXAM DATE: [id number] ORDERING PHYSICIAN: JAVY MOMIN TECHNOLOGIST: Location: [facility] [place] Patient: Buster Kaur : 1945 Visit/Account:[id number] Date of Sevice: 01/11/2018 CT BRAIN WITHOUT CONTRAST CLINICAL INDICATION: Whalen COMPARISON: March 16, 2017. TECHNIQUE: Contiguous axial CT images of the brain were obtained without IV contrast. Sagittal and coronal reformatted images were also performed. One of the following dose optimization techniques was utilized in the performance of this exam: Automated exposure control; adjustment of the mA and/ or kV according to the patient's size; or use of an iterative reconstruction technique. Specific details can be referenced in the facility's radiology CT exam operational policy. RESULT: BRAIN: Prominence of the ventricles and sulci is consistent with atrophy. There are areas of low attenuation in the periventricular and subcortical white matter which are nonspecific, but suggestive of chronic microvascular ischemic change. The brainstem and cerebellum appear normal. The basilar cisterns appear normal. There is no mass, acute infarct, hemorrhage or shift of midline. Vascular atherosclerotic calcifications are present. PARANASAL SINUSES & MASTOIDS: Well aerated. SKULL BASE & CRANIUM: Visualized osseous structures are intact. SOFT TISSUES: No soft tissue swelling or hematoma is appreciated. IMPRESSION: 1. No acute findings. 2. Findings of advanced chronological age. Report Dictated By: Davi Bañuelos MD at 01/11/2018 11:46 AM Report E-Signed By: Davi Bañuelos MD at 01/11/2018 11:48 AM WSN:[email or web address] [place] [facility] [place]: Buster Kaur : 1945 MR: [id number] V: [id number] EXAM DATE: [id number] ORDERING PHYSICIAN: JAVY MOMIN TECHNOLOGIST: Location: [facility] [place] Patient: Buster Kaur : 1945 Visit/Account:[id number] Date of Sevice: 01/11/2018 CHEST SINGLE AP Indication: Falls.. Comparison: December 15, 2017. Findings: Heart size within normal limits. There is no focal infiltrate or lobar consolidation. Chronic interstitial changes with mild chronic appearing elevation of the right hemidiaphragm. Low lung volumes. No pneumothorax or pleural effusion. IMPRESSION: 1. Low lung volumes with chronic interstitial changes. No definitive acute cardiopulmonary process. No significant change since prior radiograph. Report Dictated By: Davi Bañuelos MD at 01/11/2018 11:45 AM Report E-Signed By: Davi Bañuelos MD at 01/11/2018 11:46 AM WSN:[id number] [place] [facility] [place]: Buster Kaur : 1945 MR: [id number] V: [id number] EXAM DATE: [id number] ORDERING PHYSICIAN: JAVY MOMIN TECHNOLOGIST: Location: [facility] [place] Patient: Buster Kaur : 1945 Visit/Account:[id number] Date of Sevice: 01/11/2018 CT abdomen and pelvis without contrast Indication: Fall. Comparison: 12/02/2017 Technique: Axial CT images are obtained through the abdomen and pelvis. Reformatted coronal and sagittal images were reviewed. IV contrast was not administered. One of the following dose optimization techniques was utilized in the performance of this exam: Automated exposure control; adjustment of the mA and/ or kV according to the patient's size; or use of an iterative reconstruction technique. Specific details can be referenced in the facility's radiology CT exam operational policy. Findings: Lower lung armendariz: Right-sided gynecomastia noted. There is a small left pleural effusion. Fluid attenuation is seen within the distal esophagus which may reflect gastroesophageal reflux in the appropriate setting. Calcification seen near the aortic valve and calcifications involve the coronary arteries. Atelectasis involves both lung bases. Evaluation of the solid organs of the abdomen is limited without IV contrast. Liver: The liver appears somewhat shrunken with an enlarged caudate lobe and with lobulated contours. Liver is heterogeneous in attenuation. Extensive areas of fatty liver were seen on the prior contrast-enhanced study. Correlate for underlying cirrhosis. There is a large volume of abdominal and pelvic ascites. This has increased significantly in volume since the prior exam. Biliary: Gallbladder is contracted. No biliary dilatation. Pancreas: Normal appearance. Spleen: No evidence of splenomegaly. Adrenal glands: Unremarkable. Kidneys / retroperitoneum: No evidence of nephrolithiasis or hydronephrosis Bowel / peritoneum / mesenteries: Wall thickening suggested of the right colon and transverse colon. This is nonspecific finding and could be related to portal colopathy in the setting of cirrhosis and portal venous hypertension. A right-sided colitis cannot be excluded. No free air. No evidence for bowel obstruction. Lymph node assessment: Evaluation for adenopathy is limited without IV contrast. No gross adenopathy seen in the retroperitoneum or the mesentery. Pelvic structures: Appear unremarkable. Vessels: Moderate to severe atherosclerotic calcifications seen throughout a nonaneurysmal abdominal aorta and branches. Musculoskeletal / Body wall: Superior endplate compression at L4 is unchanged. This may represent a Schmorl's node rather than a compression fracture. Mild hip joint osteoarthritis. There is degenerative disc disease and facet osteoarthritis of the lumbar spine. No acute fracture deformity is seen in this patient with reported falls. There is diffuse body wall edema. IMPRESSION: 1. Abnormal appearance of the liver which appears somewhat shrunken with lobulated contours with an appearance most compatible with liver cirrhosis. 2. Large volume of abdominal and pelvic ascites which is increased in volume since the previous exam. 3. Suspected wall thickening of the right colon and transverse colon. In the setting of liver cirrhosis, this could represent portal colopathy. Possibility of a right-sided colitis cannot be excluded. No evidence of free air. 4. Diffuse atherosclerosis. 5. Small left pleural effusion. Report Dictated By: Ranjit Palacios at 01/11/2018 12:15 PM Report E-Signed By: Ranjit Palacios at 01/11/2018 12:25 PM WSN:[id number] ED Course/Re-evaluation Clinical Indication for ER IV: Hydration, IV Access ED Course 01/11/2018 12:23:40 pm patient with hyponatremia, mild score of 20 points estimating a 90 day mortality of 27 and 32% history of continued alcohol abuse and alcoholic cirrhosis. Troponin is unremarkable. CT of the head is negative for acute pathology although shows advanced age changes. Decision to Disposition Date: Jan 11, 2018 Decision to Disposition Time: 13:04 Depart Departure Latest Vital Signs Vital Signs Date Time Temp Pulse Resp B/P (MAP) Pulse Ox O2 Delivery O2 Flow Rate FiO2 01/11/18 12:10 65 13 94 01/11/18 11:59 107/81 (90) 01/11/18 09:47 96.7 Room Air Impression: Primary Impression: Hyponatremia Additional Impression: Alcoholic cirrhosis of liver with ascites Condition: Improved Disposition: Admitted from ER (to Dr Eboni gill) Problem Qualifiers JAVY MOMIN MD Jan 11, 2018 10:24
[2018-01-11] MEDS ORDERED: THIAMINE HCL(*) 200 MG/2 ML IN 100 MG, FOLIC ACID(*) 50 MG/10 ML INJ 1 MG, MULTIVITAMIN... IV ONE (10:48)
[2018-01-11 11:00] LABS: PLATELET COUNT, AUTOMATED 171 K/uL (150-450)
--- NOTE | 2018-01-11 11:49 | RADIOLOGY IMAGING REPORT ---
FACILITY: [facility] - [place] PATIENT NAME: Buster Kaur : 1945 MR: [id number] V: [id number] EXAM DATE: ORDERING PHYSICIAN: JAVY MOMIN TECHNOLOGIST: Location: [facility] [place] Patient: Buster Kaur : 1945 Visit/Account:[id number] Date of Sevice: 01/11/2018 CHEST SINGLE AP Indication: Falls.. Comparison: December 15, 2017. Findings: Heart size within normal limits. There is no focal infiltrate or lobar consolidation. Chronic interstitial changes with mild chronic appearing elevation of the right hemidiaphragm. Low lung volumes. No pneumothorax or pleural effusion. IMPRESSION: 1. Low lung volumes with chronic interstitial changes. No definitive acute cardiopulmonary process. N o significant change since prior radiograph. Report Dictated By: Davi Bañuelos MD at 01/11/2018 11:45 AM Report E-Signed By: Davi Bañuelos MD at 01/11/2018 11:46 AM WSN:[id number]
--- NOTE | 2018-01-11 11:51 | RADIOLOGY IMAGING REPORT ---
FACILITY: [facility] - [place] PATIENT NAME: Buster Kaur : 1945 MR: [id number] V: [id number] EXAM DATE: ORDERING PHYSICIAN: JAVY MOMIN TECHNOLOGIST: Location: [facility] Patient: Buster Kaur : 1945 Visit/Account:[id number] Date of Sevice: 01/11/2018 CT BRAIN WITHOUT CONTRAST CLINICAL INDICATION: [place]alen COMPARISON: March 16, 2017. TECHNIQUE: Contiguous axial CT images of the brain were obtained without IV contrast. Sagittal and co junie reformatted images were also performed. One of the following dose optimization techniques was utilized in the performance of this exam: Autom ated exposure control; adjustment of the mA and/or kV according to the patient's size; or use of an i terative reconstruction technique. Specific details can be referenced in the facility's radiology C T exam operational policy. RESULT: BRAIN: Prominence of the ventricles and sulci is consistent with atrophy. There are areas of low atte nuation in the periventricular and subcortical white matter which are nonspecific, but suggestive of chronic microvascular ischemic change. The brainstem and cerebellum appear normal. The basilar ciste rns appear normal. There is no mass, acute infarct, hemorrhage or shift of midline. Vascular atherosc lerotic calcifications are present. PARANASAL SINUSES & MASTOIDS: Well aerated. SKULL BASE & CRANIUM: Visualized osseous structures are intact. SOFT TISSUES: No soft tissue swelling or hematoma is appreciated. IMPRESSION: 1. No acute findings. 2. Findings of advanced chronological age. Report Dictated By: Davi Bañuelos MD at 01/11/2018 11:46 AM Report E-Signed By: Davi Bañuelos MD at 01/11/2018 11:48 AM WSN:[id number]
[2018-01-11 12:21] LABS: INR 1.12
--- NOTE | 2018-01-11 12:28 | RADIOLOGY IMAGING REPORT ---
FACILITY: [facility] - [place] PATIENT NAME: Buster Kaur : 1945 MR: [id number] V: [id number] EXAM DATE: ORDERING PHYSICIAN: JAVY MOMIN TECHNOLOGIST: Location: [facility] Patient: Buster Kaur : 1945 Visit/Account:[id number] Date of Sevice: 01/11/2018 CT abdomen and pelvis without contrast Indication: Fall. Comparison: 12/02/2017 Technique: Axial CT images are obtained through the abdomen and pelvis. Reformatted coronal and sagit hai images were reviewed. IV contrast was not administered. One of the following dose optimization techniques was utilized in the performance of this exam: Autom ated exposure control; adjustment of the mA and/or kV according to the patient's size; or use of an i terative reconstruction technique. Specific details can be referenced in the facility's radiology C T exam operational policy. Findings: Lower lung armendariz: Right-sided gynecomastia noted. There is a small left pleural effusion. Fluid atte nuation is seen within the distal esophagus which may reflect gastroesophageal reflux in the appropri ate setting. Calcification seen near the aortic valve and calcifications involve the coronary arterie s. Atelectasis involves both lung bases. Evaluation of the solid organs of the abdomen is limited without IV contrast. Liver: The liver appears somewhat shrunken with an enlarged caudate lobe and with lobulated contours. Liver is heterogeneous in attenuation. Extensive areas of fatty liver were seen on the prior contras t-enhanced study. Correlate for underlying cirrhosis. There is a large volume of abdominal and pelvic ascites. This has increased significantly in volume since the prior exam. Biliary: Gallbladder is contracted. No biliary dilatation. Pancreas: Normal appearance. Spleen: No evidence of splenomegaly. Adrenal glands: Unremarkable. Kidneys / retroperitoneum: No evidence of nephrolithiasis or hydronephrosis Bowel / peritoneum / mesenteries: Wall thickening suggested of the right colon and transverse colon. This is nonspecific finding and could be related to portal colopathy in the setting of cirrhosis and portal venous hypertension. A right-sided colitis cannot be excluded. No free air. No evidence for jose wel obstruction. Lymph node assessment: Evaluation for adenopathy is limited without IV contrast. No gross adenopathy seen in the retroperitoneum or the mesentery. Pelvic structures: Appear unremarkable. Vessels: Moderate to severe atherosclerotic calcifications seen throughout a nonaneurysmal abdominal aorta and branches. Musculoskeletal / Body wall: Superior endplate compression at L4 is unchanged. This may represent a S chmorl's node rather than a compression fracture. Mild hip joint osteoarthritis. There is degenerativ e disc disease and facet osteoarthritis of the lumbar spine. No acute fracture deformity is seen in t his patient with reported falls. There is diffuse body wall edema. IMPRESSION: 1. Abnormal appearance of the liver which appears somewhat shrunken with lobulated contours with an a ppearance most compatible with liver cirrhosis. 2. Large volume of abdominal and pelvic ascites which is increased in volume since the previous exam. 3. Suspected wall thickening of the right colon and transverse colon. In the setting of liver cirrhos is, this could represent portal colopathy. Possibility of a right-sided colitis cannot be excluded. N o evidence of free air. 4. Diffuse atherosclerosis. 5. Small left pleural effusion. Report Dictated By: Ranjit Palacios at 01/11/2018 12:15 PM Report E-Signed By: Ranjit Palacios at 01/11/2018 12:25 PM WSN:[id number]
[2018-01-11 13:36] VITALS: BP 124/70
[2018-01-11] MEDS ORDERED: NS(*) 0.9% 1000 ML BAG 1,000 ML IV PRN (14:16)
--- NOTE | 2018-01-11 14:37 | History & Physical ---
History of Present Illness Chief Complaint Weak and falling History of Present Illness 72yo male with PMHx significant for alcoholic liver disease. He has continued to drink alcohol. He has been increasingly weak over the past few weeks. He has been falling at home. At present he is somewhat somnolent, but does awaken and answer questions. He is oriented to person and place. He has a history of chronic abdominal pain, but denies any current pain. He denies any fevers or chills. He denies any N/V/diarrhea. He has had a recent UTI, but denies any current dysuria or frequency. He was evaluated in the ER and found to have significant hyponatremia with a sodium of 119. His creatinine is also elevated ( 1.5) above his baseline (0.9). CT scan of abdomen/pelvis shows cirrhotic liver with ascites and some possible thickening of his right colon. He was recommended for admission. History Problems: (1) Morgellons syndrome Status: Chronic (2) Atrial fibrillation Status: Chronic (3) Hypothyroid Status: Chronic (4) Urinary tract infection Status: Resolved (5) Chronic abdominal pain Status: Chronic (6) Type 2 diabetes mellitus treated with insulin Status: Chronic (7) Alcoholic cirrhosis of liver with ascites Status: Chronic (8) History of bilateral knee replacement Status: Chronic (9) Gall bladder disease Status: Chronic (10) Compression fracture of lumbar vertebra Status: Chronic (11) Interstitial pneumonia Status: Resolved (12) Cellulitis Status: Resolved Home Meds Active Scripts Levofloxacin 750 Mg Tab (LEVOFLOXACIN 750 MG TAB) 750 Mg Tablet, 750 MG PO QPM, #2 Prov:ABBIE ZEPEDA MD 01/01/18 Tamsulosin Hcl (TAMSULOSIN HCL) 0.4 Mg Cap.er.24h, 0.4 MG PO QDAY, #30 Prov:ABBIE ZEPEDA MD 01/01/18 Spironolactone (SPIRONOLACTONE) 25 Mg Tablet, 25 MG PO DAILY for 30 Days, TAB 0 Refills Prov:ABBIE ZEEPDA MD 01/01/18 Vitamin B Complex (B COMPLEX) 1 Each Tablet, 1 EACH PO DAILY, #30 TAB 1 Refill Prov:ARNULFO ALCANTARA MD 12/17/17 Diltiazem Hcl (DILTIAZEM 24HR CD) 240 Mg Cap.er.24h, 240 MG PO QDAY, #30 CAP.SR.24H Prov:MANUEL MARTÍNEZ DO 03/19/17 Levothyroxine Sodium (LEVOTHYROXINE SODIUM) 25 Mcg Tablet, 0.025 MG PO QDAY@06, #30 TAB Prov:MANUEL MARTÍNEZ DO 03/19/17 Aspirin (ASPIRIN EC) 81 Mg Tablet.dr, 81 MG PO QDAY, #30 TAB Prov:MANUEL MARTÍNEZ DO 03/19/17 Allergies: Coded Allergies: cephalexin (Verified Allergy, Severe, ANAPHYLAXIS, 01/11/18) NSAIDS (Non-Steroidal Anti-Inflamma (Verified Allergy, Intermediate, ) tizanidine (Verified Allergy, Unknown, 01/11/18) tramadol (Verified Allergy, Unknown, GI DISTRESS, 01/11/18) Patient History: FH: heart attack FATHER FHx: skin cancer MOTHER Hx Smoking: Yes Smoking Status: Former Smoker Exposure to Second Hand Smoke?: Yes Caffeine Intake: Coffee Caffeine/Cups Per Day: 1 cup Hx Alcohol Use: Yes (3 Scotch whisky drinks a day (2 ounces each)) Hx Substance Use Disorder: No Review of Systems Constitutional: No Fever, No Chills, No Night Sweats Neurological: Confusion, Weakness Eyes: No Vision Change, No Loss of Vision ENT: No Hearing Loss Cardiovascular: No Chest Pain, No Palpitations Respiratory: No Shortness of Breath, No Cough Gastrointestinal: No Nausea, No Vomiting, No Diarrhea, No Hematemesis, No Hematochezia, No Melena, Abdominal Pain Genitourinary: No Dysuria, No Hematuria Musculoskeletal: Pain Exam Vital Signs Vital Signs Date Time Temp Pulse Resp B/P (MAP) Pulse Ox O2 Delivery O2 Flow Rate FiO2 01/11/18 13:00 69 8 119/67 (84) 97 01/11/18 09:47 96.7 Room Air General Appearance: Other (Somewhat somnolent, but does awaken and answer questions/jaundiced) Neuro: Other (He does move all four extremities) Eyes: PERRLA, Other (scleral icterus) ENT: Oropharynx Clear Neck: No Masses Cardiovascular: Other (Irregular with distant tones) Respiratory: Clear to Auscultation (poor effort) Chest: No Tenderness GI: Other (distended/fairly taut/diminished BS/he does not report any pain with palapation/fluid wave is present) : No CVA Tenderness Extremities: Warm, Perfused, Edema (2-3+ both LE to lower abdomen) Integumentary: Generalized Fragile Skin Medical Decision Making Data Points Result Diagram: 01/11/18 1047 01/11/18 1047 Item Value Date Time Albumin 3.0 g/dl L 01/11/18 1047 Total Protein 7.4 gm/dl 01/11/18 1047 Alkaline Phosphatase 687 U/L H 01/11/18 1047 Alanine Aminotransferase (ALT/SGPT) 78 U/L H 01/11/18 1047 Aspartate Amino Transf (AST/SGOT) 120 U/L H 01/11/18 1047 Total Bilirubin 8.8 mg/dl H 01/11/18 1047 Magnesium Level 1.7 mg/dl 01/11/18 1047 Calcium Level 8.5 mg/dl 01/11/18 1047 Direct Bilirubin 6.6 mg/dl H 01/11/18 1047 Ammonia 28 UMOL/L 01/11/18 1047 Total Creatine Kinase 76 U/L 01/11/18 1047 Troponin I 0.015 ng/ml 01/11/18 1047 Lipase 126 U/L 01/11/18 1047 Activated Partial Thromboplast Time 39 seconds H 01/11/18 1051 Prothromb Time International Ratio 1.12 01/11/18 1051 Prothrombin Time 14.4 seconds 01/11/18 1051 Serum Alcohol < 10 mg/dl 01/11/18 1047 Acetaminophen Level < 10 ug/ml 01/11/18 1047 Salicylates Level < 10 mg/L 01/11/18 1047 EKG / Imaging Imaging PATIENT NAME: Buster Kaur : 1945 MR: [id number] V: [id number] EXAM DATE: [id number] ORDERING PHYSICIAN: JAVY MOMIN TECHNOLOGIST: Location: [facility] [place] Patient: Buster Kaur : 1945 Visit/Account:[id number] Date of Sevice: 01/11/2018 CT BRAIN WITHOUT CONTRAST CLINICAL INDICATION: [place] COMPARISON: March 16, 2017. TECHNIQUE: Contiguous axial CT images of the brain were obtained without IV contrast. Sagittal and coronal reformatted images were also performed. One of the following dose optimization techniques was utilized in the performance of this exam: Automated exposure control; adjustment of the mA and/ or kV according to the patient's size; or use of an iterative reconstruction technique. Specific details can be referenced in the facility's radiology CT exam operational policy. RESULT: BRAIN: Prominence of the ventricles and sulci is consistent with atrophy. There are areas of low attenuation in the periventricular and subcortical white matter which are nonspecific, but suggestive of chronic microvascular ischemic change. The brainstem and cerebellum appear normal. The basilar cisterns appear normal. There is no mass, acute infarct, hemorrhage or shift of midline. Vascular atherosclerotic calcifications are present. PARANASAL SINUSES & MASTOIDS: Well aerated. SKULL BASE & CRANIUM: Visualized osseous structures are intact. SOFT TISSUES: No soft tissue swelling or hematoma is appreciated. IMPRESSION: 1. No acute findings. 2. Findings of advanced chronological age. Report Dictated By: Davi Bañuelos MD at 01/11/2018 11:46 AM Report E-Signed By: Davi Bañuelos MD at 01/11/2018 11:48 AM WSN:[id number] PATIENT NAME: Buster Kaur : 1945 MR: [id number] V: [id number] EXAM DATE: [id number] ORDERING PHYSICIAN: JAVY MOMIN TECHNOLOGIST: Location: [facility] [place] Patient: Buster Kaur : 1945 Visit/Account:[id number] Date of Sevice: 01/11/2018 CHEST SINGLE AP Indication: Falls.. Comparison: December 15, 2017. Findings: Heart size within normal limits. There is no focal infiltrate or lobar consolidation. Chronic interstitial changes with mild chronic appearing elevation of the right hemidiaphragm. Low lung volumes. No pneumothorax or pleural effusion. IMPRESSION: 1. Low lung volumes with chronic interstitial changes. No definitive acute cardiopulmonary process. No significant change since prior radiograph. Report Dictated By: Davi Bañuelos MD at 01/11/2018 11:45 AM Report E-Signed By: Davi Bañuelos MD at 01/11/2018 11:46 AM WSN:[id number] PATIENT NAME: Buster Kaur : 1945 MR: [id number] V: [id number] EXAM DATE: [id number] ORDERING PHYSICIAN: JAVY MOMIN TECHNOLOGIST: Location: [facility] [place] Patient: Buster Kaur : 1945 Visit/Account:[id number] Date of Sevice: 01/11/2018 CT abdomen and pelvis without contrast Indication: Fall. Comparison: 12/02/2017 Technique: Axial CT images are obtained through the abdomen and pelvis. Reformatted coronal and sagittal images were reviewed. IV contrast was not administered. One of the following dose optimization techniques was utilized in the performance of this exam: Automated exposure control; adjustment of the mA and/ or kV according to the patient's size; or use of an iterative reconstruction technique. Specific details can be referenced in the facility's radiology CT exam operational policy. Findings: Lower lung armendariz: Right-sided gynecomastia noted. There is a small left pleural effusion. Fluid attenuation is seen within the distal esophagus which may reflect gastroesophageal reflux in the appropriate setting. Calcification seen near the aortic valve and calcifications involve the coronary arteries. Atelectasis involves both lung bases. Evaluation of the solid organs of the abdomen is limited without IV contrast. Liver: The liver appears somewhat shrunken with an enlarged caudate lobe and with lobulated contours. Liver is heterogeneous in attenuation. Extensive areas of fatty liver were seen on the prior contrast-enhanced study. Correlate for underlying cirrhosis. There is a large volume of abdominal and pelvic ascites. This has increased significantly in volume since the prior exam. Biliary: Gallbladder is contracted. No biliary dilatation. Pancreas: Normal appearance. Spleen: No evidence of splenomegaly. Adrenal glands: Unremarkable. Kidneys / retroperitoneum: No evidence of nephrolithiasis or hydronephrosis Bowel / peritoneum / mesenteries: Wall thickening suggested of the right colon and transverse colon. This is nonspecific finding and could be related to portal colopathy in the setting of cirrhosis and portal venous hypertension. A right-sided colitis cannot be excluded. No free air. No evidence for bowel obstruction. Lymph node assessment: Evaluation for adenopathy is limited without IV contrast. No gross adenopathy seen in the retroperitoneum or the mesentery. Pelvic structures: Appear unremarkable. Vessels: Moderate to severe atherosclerotic calcifications seen throughout a nonaneurysmal abdominal aorta and branches. Musculoskeletal / Body wall: Superior endplate compression at L4 is unchanged. This may represent a Schmorl's node rather than a compression fracture. Mild hip joint osteoarthritis. There is degenerative disc disease and facet osteoarthritis of the lumbar spine. No acute fracture deformity is seen in this patient with reported falls. There is diffuse body wall edema. IMPRESSION: 1. Abnormal appearance of the liver which appears somewhat shrunken with lobulated contours with an appearance most compatible with liver cirrhosis. 2. Large volume of abdominal and pelvic ascites which is increased in volume since the previous exam. 3. Suspected wall thickening of the right colon and transverse colon. In the setting of liver cirrhosis, this could represent portal colopathy. Possibility of a right-sided colitis cannot be excluded. No evidence of free air. 4. Diffuse atherosclerosis. 5. Small left pleural effusion. Report Dictated By: Ranjit Palacios at 01/11/2018 12:15 PM Report E-Signed By: Ranjit Palacios at 01/11/2018 12:25 PM WSN:[id number] Assessment and Plan Problems: (1) Hyponatremia Status: Acute Assessment & Plan: Most likely multifactorial including his end-stage liver disease and spironolactone use. Will admit to medical floor, place on gentle IV NS infusion, fluid restriction, stop spironolactone. Monitor lab closely. (2) Alcoholic cirrhosis of liver with ascites Status: Chronic Assessment & Plan: End-stage. He continues to drink as well. His prognosis is extremely poor. (3) Type 2 diabetes mellitus treated with insulin Status: Chronic Assessment & Plan: Will place on ADA diet, monitor glucoses and use SSI as needed. (4) Hypothyroid Status: Chronic Assessment & Plan: Continue replacement therapy with L-thyroxine. (5) Urinary tract infection Status: Resolved Assessment & Plan: Recent UTI. Will check UA and culture. Treat if needed. (6) Acute renal failure (ARF) Status: Acute Assessment & Plan: Probably due to intravascular volume depletion. He will get gentle IV fluids. Watch lab closely. Venous Thromboembolism Antithrombotics Is Pt On Any Antithrombotics?: No Prophylaxis Tx Contraindicated Pharmacological Contraindicati: Liver Disease Exam Sepsis Risk: No Definite Risk ARNULFO ALCANTARA MD Jan 11, 2018 14:37
[2018-01-11] MEDS ORDERED: INSULIN HUM LISPRO 100 UN/ML 3 ML VIAL SUBQ PRN (14:40)
[2018-01-11 15:42] VITALS: BP 118/61
--- NOTE | 2018-01-11 16:48 | EKG ---
FACILITY: [facility] - [place] PATIENT NAME: MARLEN SHRESTHA : [id number] MR: [id number] V: [id number] EXAM DATE: ORDERING PHYSICIAN: JAVY MOMIN TECHNOLOGIST: MOHAN Cespedes Reason : WEAKNESS Blood Pressure : / mmHG Vent. Rate : 067 BPM Atrial Rate : 067 BPM P-R Int : 236 ms QRS Dur : 080 ms QT Int : 404 ms P-R-T Axes : -02 -12 010 degrees QTc Int : 426 ms Sinus rhythm with 1st degree AV block Left axis deviation Decreased R wave progression anteriorly Abnormal ECG Confirmed by ARNULFO ALCANTARA ([id number]) on 01/11/2018 6:33:06 PM Referred By: LILIANE Confirmed By:ARNULFO ALCANTARA
[2018-01-11 18:38] VITALS: BP 123/66
[2018-01-11 23:04] VITALS: BP 129/64
[2018-01-12] MEDS: LEVOTHYROXINE SOD 0.025 MG TAB PO SCH (05:51)
[2018-01-12 07:14] LABS: PLATELET COUNT, AUTOMATED 126 K/uL (150-450)
[2018-01-12 07:28] VITALS: BP 126/66
[2018-01-12 07:35] LABS: INR 1.13
[2018-01-12] MEDS: LACTULOSE 10 GM/15 ML UDCUP PO SCH ×2 (08:43→21:34)
--- NOTE | 2018-01-12 10:51 | Hospitalist Progress Note ---
Subjective Progress Notes Subjective Staff reporting that he is having some auditory hallucinations overnight. He wants to go home. No complaints. Physical Exam Vital Signs Date Time Temp Pulse Resp B/P (MAP) Pulse Ox O2 Delivery O2 Flow Rate FiO2 01/12/18 07:28 91 Room Air 01/12/18 07:28 97.9 87 20 126/66 (86) Intake and Output 01/13/18 07:00 Intake Total 0 ml Balance 0 ml Intake Oral 0 ml # Bowel Movements 1 General Appearance: Alert, Awake Neuro: Other (He knows he is in the hospital. Thought he ate well and had cereal this morning, but is on a clear liquid diet. Not eating or drinking well per staff) GI: Soft and Non-Tender (Moderately distended) Result Diagram: 01/12/1864601/12/18646 Monitor Interpretation: Normal Sinus Rhythm Assessment and Plan Problems: (1) Hyponatremia Status: Acute Assessment & Plan: Most likely multifactorial including his end-stage liver disease and spironolactone use. Unchanged this morning. On gentle IV NS infusion, fluid restriction. Will check urine studies. (2) Alcoholic cirrhosis of liver with ascites Status: Chronic Assessment & Plan: End-stage. He continues to drink as well. His prognosis is extremely poor. (3) Type 2 diabetes mellitus treated with insulin Status: Chronic Assessment & Plan: Will change to ADA diet, monitor glucoses and use SSI as needed. (4) Hypothyroid Status: Chronic Assessment & Plan: Continue replacement therapy with L-thyroxine. (5) Urinary tract infection Status: Resolved Assessment & Plan: Recent UTI. Will check UA and culture. Treat if needed. (6) Acute renal failure (ARF) Status: Acute Assessment & Plan: Probably due to intravascular volume depletion. Continue gentle IV fluids. Watch lab closely. Exam Sepsis Risk: No Definite Risk ABBIE ZEPEDA MD Jan 12, 2018 10:51
[2018-01-12 10:54] VITALS: BP 136/84
[2018-01-12 15:16] VITALS: BP 137/84
[2018-01-12 18:29] VITALS: BP 139/81
[2018-01-12 23:15] VITALS: BP 130/85
[2018-01-13 03:13] VITALS: BP 158/90
[2018-01-13] MEDS: LEVOTHYROXINE SOD 0.025 MG TAB PO SCH (06:39)
[2018-01-13 06:41] LABS: PLATELET COUNT, AUTOMATED 147 K/uL (150-450)
[2018-01-13 07:16] VITALS: BP 123/79
[2018-01-13] MEDS: LACTULOSE 10 GM/15 ML UDCUP PO SCH (09:11)
[2018-01-13 11:57] VITALS: BP 145/94
[2018-01-13] MEDS ORDERED: INFLUENZA VIRUS VAC 0.5 ML SYR IM ONLY ONE (14:20)
--- NOTE | 2018-01-13 16:03 | Hospitalist Progress Note ---
Subjective Progress Notes Subjective The patient continues to complain of diffuse abdominal pain but notes it is not worse than usual for him. Physical Exam Vital Signs Date Time Temp Pulse Resp B/P (MAP) Pulse Ox O2 Delivery O2 Flow Rate FiO2 01/13/18 11:57 97.6 97 20 145/94 (111) 96 Nasal Cannula 01/13/18 07:47 1.0 Intake and Output 01/14/18 07:00 Intake Total 490 ml Output Total 150 ml Balance 340 ml Intake Oral 490 ml Output Urine Total 150 ml # Bowel Movements 3 General Appearance: Alert, Awake Neuro: Other (Unable to answer questions regarding current medications.) Cardiovascular: Regular Rate and Rhythm Respiratory: Clear to Auscultation GI: Other (Distended, diffusely tender.) Extremities: Warm, Perfused Integumentary: Other (Large bruise over inner upper R arm. Multiple small scars over both forearms.) Psych: Appropriate Mood & Affect Result Diagram: 01/13/1862501/13/18625 Monitor Interpretation: Normal Sinus Rhythm Assessment and Plan Problems: (1) Hyponatremia Status: Acute Assessment & Plan: Most likely multifactorial including his end-stage liver disease and spironolactone use. Sodium is 120 this am. He was on NS but this was stopped. Continue fluid restriction. (2) Alcoholic cirrhosis of liver with ascites Status: Chronic Assessment & Plan: End-stage. He continues to drink as well. His prognosis is extremely poor. (3) Type 2 diabetes mellitus treated with insulin Status: Chronic Assessment & Plan: Will change to ADA diet, monitor glucoses and use SSI as needed. (4) Hypothyroid Status: Chronic Assessment & Plan: Continue replacement therapy with L-thyroxine. (5) Urinary tract infection Status: Resolved Assessment & Plan: Recent UTI. UA and culture negative. (6) Acute renal failure (ARF) Status: Acute Assessment & Plan: Probably due to intravascular volume depletion. Treated with IV fluids and has resolved. Time Spent on Plan of Care: < 30 min Exam Sepsis Risk: No Definite Risk ALEC ALCANTARA MD Jan 13, 2018 16:03
--- NOTE | 2018-01-13 16:29 | Medical Nutrition Therapy ---
Nutrition Anthropometrics Weight (Pounds): 280 Weight (Calculated Kilograms): 127.063 BMI Calculated: 36.07 Ramy Nutrition Score: Probably Inadequate Ramy Nutrition Risk Score: 12 Dietary Referral Nutrition Risk Factors: Unplanned Loss >10lbs Nutrition Risk Comment: Physical Findings Physical Appearance: Skin Appearance Skin Appearance: Edema Edema Location Modifier: Both Edema Location: abdomen Type of Edema: Degree of Edema: 2+ Gastrointestinal Symptoms GI Symtoms: Appetite Changes, Bloating, Change in Bowel Pattern Tube Present: Bowel Sounds: Recent Bowel Pattern: Stool Characteristics: Nutritional Diagnosis Nutritional Risk Acuity 2: Liver Cirrhosis Nutritional Risk Acuity 3: Fair Appetite Past Medical History: Morgellon's syndrome, chronic abd pain, T2DM, a-fib, liver cirrhosis, seizures, HTN, COPD,hyponatremia Nutritional Acuity: 2-Moderate Nutrition Diagnosis: Excessive Alcohol Intake Nutrition Problem/Etiology/Sym: Excessive alcohol intake related to liver cirrhosis as evidenced by elevated liver enzymes and history of alcohol abuse Energy Requirement: 2604 (MSJ AF 1.3) Protein Requirement: 96 (0.8g/kg) Fluid Requirement: 1500 (Fluid Restriction) Diet Type: Diabetic, Fluid Restricted Nutrition Intervention: Cont diet as ordered, Encourage intake Nutrition Monitoring & Eval RD Patient Assessment Time: [address] Assessment Type: RD Assessment Patient Nutrition Acuity: 2-Moderate Follow Up Date: Jan 17, 2018 Nutritional Comment: 01/12) Pt admitted for hyponatremia. PMH Morgellons syndrome, Atrial fibrillation,Hypothyroid,Urinary tract infection, Chronic abdominal pain, Type 2 diabetes mellitus treated with insulin, Alcoholic cirrhosis of liver with ascites, History of bilateral knee replacement, Gall bladder disease, Compression fracture of lumbar vertebra,Interstitial pneumonia,Cellulitis. Labs, Na 118, total bilirubin 7.7, AST 109, ALT 71, Alk Phos 605, Alb 2.7. Diet: Fluid Restricted, CLD. Will monitor labs, PO intake, weight. 01/13) Labs: Na 120, Glu 109, liver enzymes remain elevated. Diabetic/FR diet po intake 58% po intake x 3 meals. Will monitor labs, po intake, weight. IONA CATES Jan 13, 2018 12:05
[2018-01-13 22:55] VITALS: BP_SYST 137; BP_SYST 138; BP_DIAS 114; BP_DIAS 89
[2018-01-14] MEDS ORDERED: LEVOTHYROXINE SOD 0.150 MG TAB PO SCH (06:00)
[2018-01-14 06:45] LABS: INR 1.18
[2018-01-14 06:50] LABS: PLATELET COUNT, AUTOMATED 137 K/uL (150-450)
[2018-01-14 07:41] VITALS: BP 132/87
--- NOTE | 2018-01-14 10:57 | Hospitalist Progress Note ---
Subjective Progress Notes Subjective He reports chronic abdominal discomfort is present and essentially unchanged. Physical Exam Vital Signs Date Time Temp Pulse Resp B/P (MAP) Pulse Ox O2 Delivery O2 Flow Rate FiO2 01/14/18 07:45 97 Nasal Cannula 2.0 01/14/18 07:41 97.7 93 16 132/87 (102) Intake and Output 01/15/18 07:00 Intake Total 120 ml Balance 120 ml Intake Oral 120 ml General Appearance: Alert, Awake, Other (jaundiced) Eyes: Other (scleral icterus present) Cardiovascular: Other (Regular distant tones) Respiratory: Other (diminished breath sounds) Chest: No Tenderness GI: Other (distended/soft/reported right-sided discomfort with palpation/BS present) Extremities: Warm, Perfused, Edema Result Diagram: 01/14/18 0549 01/14/18 05 Monitor Interpretation: Normal Sinus Rhythm Assessment and Plan Problems: (1) Hyponatremia Status: Acute Assessment & Plan: Most likely multifactorial including his end-stage liver disease and spironolactone use. Sodium is 122 this am. He was on NS but this has been stopped. Continue fluid restriction. (2) Alcoholic cirrhosis of liver with ascites Status: Chronic Assessment & Plan: End-stage. He continues to drink as well. His prognosis is extremely poor. We had lengthy discussion regarding his options at this time. He seems to understand fairly well if he continues to drink he will certainly worsen and will definitely not be a candidate for transplant. Even if he does stop drinking now, he will probably not have significant improvement and will probably continue to worsen. He will think about what he would like to do and discuss with his family/friends. (3) Type 2 diabetes mellitus treated with insulin Status: Chronic Assessment & Plan: ADA diet, monitor glucoses and use SSI as needed. (4) Hypothyroid Status: Chronic Assessment & Plan: Continue replacement therapy with L-thyroxine. (5) Urinary tract infection Status: Resolved Assessment & Plan: Recent UTI. UA and culture negative. (6) Acute renal failure (ARF) Status: Acute Assessment & Plan: Probably due to intravascular volume depletion. Treated with IV fluids and has resolved. Exam Sepsis Risk: No Definite Risk ARNULFO ALCANTARA MD Jan 14, 2018 10:56
[2018-01-14] MEDS ORDERED: LEVO150T72 PO (13:12)
[2018-01-14] MEDS ORDERED: INSU100V24 SUBQ (13:12)
--- NOTE | 2018-01-14 13:23 | Hospitalist Depart ---
Discharge Summary Reason for Hosp/Final Diag: (1) Alcoholic cirrhosis of liver with ascites Status: Chronic Hospital Course & Plan: End-stage. He continues to drink as well. His prognosis is extremely poor. We had lengthy discussion regarding his options at this time. He seems to understand fairly well if he continues to drink he will certainly worsen and will definitely not be a candidate for transplant. Even if he does stop drinking now, he will probably not have significant improvement and will probably continue to worsen. He will think about what he would like to do and discuss with his family/friends. He was working with PT/OT during his stay and recommended long-term sub-acute rehab. Patient and family wished to transfer to [facility] to continue rehabilitative therapy. (2) Hyponatremia Status: Acute Hospital Course & Plan: Most likely multifactorial including his end-stage liver disease and spironolactone use. Sodium is 122 this am. He was on NS, but this has been stopped. Continue fluid restriction. Watch labs periodically. (3) Type 2 diabetes mellitus treated with insulin Status: Chronic Hospital Course & Plan: ADA diet, monitor glucoses and use SSI as needed. (4) Hypothyroid Status: Chronic Hospital Course & Plan: Continue replacement therapy with L-thyroxine. (5) Urinary tract infection Status: Resolved Hospital Course & Plan: Recent UTI. UA and culture negative. (6) Acute renal failure (ARF) Status: Acute Hospital Course & Plan: Probably due to intravascular volume depletion. Treated with IV fluids and has resolved. Departure Weight (Pounds): 280 Weight (Ounces): 2.0 Result Diagram: 01/14/18 0549 01/14/18 0549 Item Value Date Time Sodium Level 119 mmol/L *L 01/11/18 1047 Potassium Level 4.7 mmol/L 01/11/18 1047 Chloride Level 89 mmol/L L 01/11/18 1047 Carbon Dioxide Level 17 mmol/L L 01/11/18 1047 Blood Urea Nitrogen 16 mg/dl 01/11/18 1047 Creatinine 1.50 mg/dl H 01/11/18 1047 Glomerular Filtration Rate Calc 46.3 01/11/18 1047 Random Glucose 123 mg/dl H 01/11/18 1047 Calcium Level 8.5 mg/dl 01/11/18 1047 Magnesium Level 1.7 mg/dl 01/11/18 1047 Total Bilirubin 8.8 mg/dl H 01/11/18 1047 Aspartate Amino Transf (AST/SGOT) 120 U/L H 01/11/18 1047 Alanine Aminotransferase (ALT/SGPT) 78 U/L H 01/11/18 1047 Alkaline Phosphatase 687 U/L H 01/11/18 1047 Total Protein 7.4 gm/dl 01/11/18 1047 Albumin 3.0 g/dl L 01/11/18 1047 Thyroid Stimulating Hormone (TSH) 4.45 uIU/ml 01/11/18 1047 Lipase 126 U/L 01/11/18 1047 Troponin I 0.015 ng/ml 01/11/18 1047 Total Creatine Kinase 76 U/L 01/11/18 1047 Ammonia 28 UMOL/L 01/11/18 1047 Direct Bilirubin 6.6 mg/dl H 01/11/18 1047 Prothrombin Time 14.4 seconds 01/11/18 1051 Prothromb Time International Ratio 1.12 01/11/18 1051 Activated Partial Thromboplast Time 39 seconds H 01/11/18 1051 Prothrombin Time 14.5 seconds H 01/12/18 0647 Prothromb Time International Ratio 1.13 01/12/18 0647 Prothrombin Time 15.1 seconds H 01/14/18 0549 Prothromb Time International Ratio 1.18 01/14/18 0549 White Blood Count 9.4 k/uL 01/11/18 1047 Hemoglobin 13.8 g/dL L 01/11/18 1047 Hematocrit 39.2 % L 01/11/18 1047 Platelet Count 171 K/uL 01/11/18 1047 Urine Opiates Screen Positive 01/11/18 1825 Urine Barbiturates Screen Negative 01/11/18 1825 Ur Tricyclic Antidepressants Screen Positive 01/11/18 1825 Urine Phencyclidine Screen Negative 01/11/18 1825 Urine Amphetamines Screen Negative 01/11/18 1825 Urine Benzodiazepines Screen Positive 01/11/18 182 Urine Cocaine Screen Negative 01/11/18 182 Urine Cannabinoids Screen Negative 01/11/18 1825 Serum Alcohol < 10 mg/dl 01/11/18 1047 Acetaminophen Level < 10 ug/ml 01/11/18 1047 Salicylates Level < 10 mg/L 01/11/18 1047 [facility] *LIVE* [address] [place] [address] CARLOS NG M.D., DIRECTOR OF LABORATORY SERVICES ARMIDA RETANA M.D., PATHOLOGIST RUN DATE: 01/14/18 Specimen Inquiry Report PAGE 1 RUN TIME: 1000 PATIENT: BUSTER SHRESTHA ACCT: [id number] LOC: [employer] U : [id number] AGE/SX: 72/M ROOM: [facility] REG : 01/11/[address]: ARNULFO ALCANTARA MD : 1945 BED: 267 DIS : STATUS: ADM IN TLOC: SPEC #: [id number] HOLGER: 01/11/18 STATUS: RES REQ #: [id number] RECD: 01/11/18-[address]: JAVY MOMIN MD SOURCE: BLOOD PER ENTR: 01/11/18-[address] [facility] [address]: ANNE MARIEES: ORDERED: CULT BLOOD Procedure Result Verified BLOOD CULTURE Preliminary 01/14/18-1000 NO GROWTH AFTER 3 DAYS, REINCUBATED [facility] *LIVE* [address] [facility] [address] CARLOS NG M.D., DIRECTOR OF LABORATORY SERVICES ARMIDA RETANA M.D., PATHOLOGIST RUN DATE: 01/14/18 Specimen Inquiry Report PAGE 1 RUN TIME: 1000 PATIENT: BUSTER SHRESTHA ACCT: [id number] LOC: MED U : [id number] AGE/SX: 72/M ROOM: 226 REG : 01/11/[address]: ARNULFO ALCANTARA MD : 1945 BED: 267 DIS : STATUS: ADM IN TLOC: SPEC #: [id number] HOLGER: 01/11/18 STATUS: RES REQ #: [id number] RECD: 01/11/18-[address]: JAVY MOMIN MD SOURCE: BLOOD PER ENTR: 01/11/18-1058 ALAN JONES: ALICE: ORDERED: CULT BLOOD Procedure Result Verified BLOOD CULTURE Preliminary 01/14/18-1000 NO GROWTH AFTER 3 DAYS, REINCUBATED [facility] *LIVE* [address] [place] [address] CARLOS NG M.D., DIRECTOR OF LABORATORY SERVICES ARMIDA RETANA M.D., PATHOLOGIST RUN DATE: 01/13/18 Specimen Inquiry Report PAGE 1 RUN TIME: 911 PATIENT: BUSTER SHRESTHA ACCT: [id number] LOC: MED U : [id number] AGE/SX: 72/M ROOM: [facility] REG : 01/11/[address]: ARNULFO ALCANTARA MD : 1945 BED: 267 DIS : STATUS: ADM IN TLOC: SPEC #: [id number] HOLGER: 01/11/18 STATUS: COMP REQ #: [id number] RECD: 01/11/[address] [facility] [address]: ARNULFO ALCANTARA MD [facility] ENTR: 01/11/[address] [facility] [address]: SPDESGeorgina: ORDERED: CULT URINE COMMENTS: Has specimen been collected/obtained? Y Procedure Result Verified URINE CULTURE Final 01/13/18 NO GROWTH AFTER 2 DAYS Imaging PATIENT NAME: Buster Shrestha : 1945 MR: [id number] V: [id number] EXAM DATE: ORDERING PHYSICIAN: JAVY MOMIN TECHNOLOGIST: [place] [facility] [place] Buster Shrestha : 1945 Visit/Account:[id number] Date of Sevice: 01/11/2018 CT BRAIN WITHOUT CONTRAST CLINICAL INDICATION: [place] COMPARISON: March 16, 2017. TECHNIQUE: Contiguous axial CT images of the brain were obtained without IV contrast. Sagittal and coronal reformatted images were also performed. One of the following dose optimization techniques was utilized in the performance of this exam: Automated exposure control; adjustment of the mA and/ or kV according to the patient's size; or use of an iterative reconstruction technique. Specific details can be referenced in the facility's radiology CT exam operational policy. RESULT: BRAIN: Prominence of the ventricles and sulci is consistent with atrophy. There are areas of low attenuation in the periventricular and subcortical white matter which are nonspecific, but suggestive of chronic microvascular ischemic change. The brainstem and cerebellum appear normal. The basilar cisterns appear normal. There is no mass, acute infarct, hemorrhage or shift of midline. Vascular atherosclerotic calcifications are present. PARANASAL SINUSES & MASTOIDS: Well aerated. SKULL BASE & CRANIUM: Visualized osseous structures are intact. SOFT TISSUES: No soft tissue swelling or hematoma is appreciated. IMPRESSION: 1. No acute findings. 2. Findings of advanced chronological age. Report Dictated By: Davi Bañuelos MD at 01/11/2018 11:46 AM Report E-Signed By: Davi Bañuelos MD at 01/11/2018 11:48 AM WSN:[id number] PATIENT NAME: Buster Shrestha : 1945 MR: [id number] V: [id number] EXAM DATE: ORDERING PHYSICIAN: JAVY MOMIN TECHNOLOGIST: [place] [facility] [place] Buster Shrestha : 1945 Visit/Account:[id number] Date of Sevice: 01/11/2018 CHEST SINGLE AP Indication: Falls.. Comparison: December 15, 2017. Findings: Heart size within normal limits. There is no focal infiltrate or lobar consolidation. Chronic interstitial changes with mild chronic appearing elevation of the right hemidiaphragm. Low lung volumes. No pneumothorax or pleural effusion. IMPRESSION: 1. Low lung volumes with chronic interstitial changes. No definitive acute cardiopulmonary process. No significant change since prior radiograph. Report Dictated By: Davi Bañuelos MD at 01/11/2018 11:45 AM Report E-Signed By: Davi Bañuelos MD at 01/11/2018 11:46 AM WSN:[id number] PATIENT NAME: Buster Shrestha : 1945 MR: [id number] V: [id number] EXAM DATE: [id number] ORDERING PHYSICIAN: JAVY MOMIN TECHNOLOGIST: [place] [facility] [place] Buster Shrestha : 1945 Visit/Account:[id number] Date of Sevice: 01/11/2018 CT abdomen and pelvis without contrast Indication: Fall. Comparison: 12/02/2017 Technique: Axial CT images are obtained through the abdomen and pelvis. Reformatted coronal and sagittal images were reviewed. IV contrast was not administered. One of the following dose optimization techniques was utilized in the performance of this exam: Automated exposure control; adjustment of the mA and/ or kV according to the patient's size; or use of an iterative reconstruction technique. Specific details can be referenced in the facility's radiology CT exam operational policy. Findings: Lower lung armendariz: Right-sided gynecomastia noted. There is a small left pleural effusion. Fluid attenuation is seen within the distal esophagus which may reflect gastroesophageal reflux in the appropriate setting. Calcification seen near the aortic valve and calcifications involve the coronary arteries. Atelectasis involves both lung bases. Evaluation of the solid organs of the abdomen is limited without IV contrast. Liver: The liver appears somewhat shrunken with an enlarged caudate lobe and with lobulated contours. Liver is heterogeneous in attenuation. Extensive areas of fatty liver were seen on the prior contrast-enhanced study. Correlate for underlying cirrhosis. There is a large volume of abdominal and pelvic ascites. This has increased significantly in volume since the prior exam. Biliary: Gallbladder is contracted. No biliary dilatation. Pancreas: Normal appearance. Spleen: No evidence of splenomegaly. Adrenal glands: Unremarkable. Kidneys / retroperitoneum: No evidence of nephrolithiasis or hydronephrosis Bowel / peritoneum / mesenteries: Wall thickening suggested of the right colon and transverse colon. This is nonspecific finding and could be related to portal colopathy in the setting of cirrhosis and portal venous hypertension. A right-sided colitis cannot be excluded. No free air. No evidence for bowel obstruction. Lymph node assessment: Evaluation for adenopathy is limited without IV contrast. No gross adenopathy seen in the retroperitoneum or the mesentery. Pelvic structures: Appear unremarkable. Vessels: Moderate to severe atherosclerotic calcifications seen throughout a nonaneurysmal abdominal aorta and branches. Musculoskeletal / Body wall: Superior endplate compression at L4 is unchanged. This may represent a Schmorl's node rather than a compression fracture. Mild hip joint osteoarthritis. There is degenerative disc disease and facet osteoarthritis of the lumbar spine. No acute fracture deformity is seen in this patient with reported falls. There is diffuse body wall edema. IMPRESSION: 1. Abnormal appearance of the liver which appears somewhat shrunken with lobulated contours with an appearance most compatible with liver cirrhosis. 2. Large volume of abdominal and pelvic ascites which is increased in volume since the previous exam. 3. Suspected wall thickening of the right colon and transverse colon. In the setting of liver cirrhosis, this could represent portal colopathy. Possibility of a right-sided colitis cannot be excluded. No evidence of free air. 4. Diffuse atherosclerosis. 5. Small left pleural effusion. Report Dictated By: Ranjit Palacios at 01/11/2018 12:15 PM Report E-Signed By: Ranjit Palacios at 01/11/2018 12:25 PM WSN:[id number] EKG PATIENT NAME: BUSTER SHRESTHA : [id number] MR: [id number] V: [id number] EXAM DATE: ORDERING PHYSICIAN: JAVY MOMIN TECHNOLOGIST: MOHAN Cespedes Reason : WEAKNESS Blood Pressure : / mmHG Vent. Rate : 067 BPM Atrial Rate : 067 BPM P-R Int : 236 ms QRS Dur : 080 ms QT Int : 404 ms P-R-T Axes : -02 -12 010 degrees QTc Int : 426 ms Sinus rhythm with 1st degree AV block Left axis deviation Decreased R wave progression anteriorly Abnormal ECG Confirmed by ARNULFO ALCANTARA ([id number]) on 01/11/2018 6:33:06 PM Referred By: LILIANE Confirmed By:ARNULFO ALCANTARA Condition: Improved Discharge: [facility] PT/OT Follow Up For: PT For Strengthening, OT For ADL's Time Spent: > 30 min Discharge Instructions Home Meds Active Scripts Insulin Lispro (HUMALOG) 100 Unit/1 Ml Vial, 1-5 UNIT SUBQ SS Y for SLIDING SCALE INSULIN for 30 Days, VIAL Prov:ARNULFO ALCANTARA MD 01/14/18 Levothyroxine Sodium (SYNTHROID) 150 Mcg Tablet, 0.15 MG PO QDAY@06 for 30 Days , TAB Prov:ARNULFO ALCANTARA MD 01/14/18 Discontinued Scripts Levofloxacin 750 Mg Tab (LEVOFLOXACIN 750 MG TAB) 750 Mg Tablet, 750 MG PO QPM, #2 Prov:ABBIE ZEPEDA MD 01/01/18 Tamsulosin Hcl (TAMSULOSIN HCL) 0.4 Mg Cap.er.24h, 0.4 MG PO QDAY, #30 Prov:ABBIE ZEPEDA MD 01/01/18 Spironolactone (SPIRONOLACTONE) 25 Mg Tablet, 25 MG PO DAILY for 30 Days, TAB 0 Refills Prov:ABIBE ZEPEDA MD 01/01/18 Vitamin B Complex (B COMPLEX) 1 Each Tablet, 1 EACH PO DAILY, #30 TAB 1 Refill Prov:ARNULFO ALCANTARA MD 12/17/17 Diltiazem Hcl (DILTIAZEM 24HR CD) 240 Mg Cap.er.24h, 240 MG PO QDAY, #30 CAP.SR.24H Prov:MANUEL MARTÍNEZ DO 03/19/17 Levothyroxine Sodium (LEVOTHYROXINE SODIUM) 25 Mcg Tablet, 0.025 MG PO QDAY@06, #30 TAB Prov:MANUEL MARTÍNEZ DO 03/19/17 Aspirin (ASPIRIN EC) 81 Mg Tablet.dr, 81 MG PO QDAY, #30 TAB Prov:MANUEL MARTÍNEZ DO 03/19/17 Diet: Diabetic, Fluid Restricted Activity: As Tolerated, With Walker Special Instructions: He will be followed by the Hospitalist Service while on [facility] E[facility]. Venous Thromboembolism Antithrombotics Is Pt On Any Antithrombotics?: No ARNULFO ALCANTARA MD Jan 14, 2018 13:22
== END 2018-01-14 13:15 | DRG 683 ==
LOC: ER 09:52 → MED 12:56
PROVIDERS: ADMIT Internal Medicine; ATTEND Internal Medicine
DX: N17.9 Acute kidney failure, unspecified (principal); E87.1 Hypo-osmolality and hyponatremia; R44.0 Auditory hallucinations; K70.31 Alcoholic cirrhosis of liver with ascites; E11.9 Type 2 diabetes mellitus without complications; E03.9 Hypothyroidism, unspecified; E86.9 Volume depletion, unspecified; T50.0X5A Adverse effect of mineralocorticoids and their antagonists, initial encounter; F10.20 Alcohol dependence, uncomplicated; G89.29 Other chronic pain; I48.2 Chronic atrial fibrillation; Y90.0 Blood alcohol level of less than 20 mg/100 ml; W19.XXXA Unspecified fall, initial encounter; Y92.009 Unspecified place in unspecified non-institutional (private) residence as the place of occurrence of the external cause; Y99.8 Other external cause status; Z88.8 Allergy status to other drugs, medicaments and biological substances; Z79.4 Long term (current) use of insulin; Z87.891 Personal history of nicotine dependence; Z96.653 Presence of artificial knee joint, bilateral
CPT/HCPCS: 36415; 36416; 70450; 71045; 74176; 80305; 80320; 80329; 81001; 82040; 82140; 82247; 82248; 82310; 82374; 82435; 82550; 82565; 82947; 82948; 83690; 83735; 83930; 83935; 84075; 84132; 84155; 84295; 84300; 84443; 84450; 84460; 84484; 84520; 85025; 85610; 85730; 87040; 87088; 93005; 96365; 96366; 97163; 97166; 99285; J3411; J3475; J7030

== ENCOUNTER → 2018-01-11 | Outpatient (CLI) | payer MEDICARE, MEDICAID ==
[2017-12-31 09:29] VITALS: BMI 36.1
[~2018-01-11] MED LIST changes: +INSU100V24 SUBQ; +LEVO150T72 PO; +TAMS0.4C70 PO
== END ==
LOC: AMB 09:27
PROVIDERS: ATTEND Nurse Practitioner
DX: R53.1 Weakness (principal); R17 Unspecified jaundice; R53.83 Other fatigue
CPT/HCPCS: A0425; A0429

== ENCOUNTER 2018-01-14 13:15 | Inpatient (IN) | payer MEDICARE, MEDICAID ==
[2017-12-31 09:29] VITALS: Ht 182.9 cm; Wt 125.2 kg
[~2018-01-14] VITALS: Ht 182.9 cm; Wt 125.2 kg
[~2018-01-14 13:15] MED LIST changes: +INSU100V24 SUBQ; +LEVO150T72 PO
[2018-01-14] MEDS ORDERED: INSULIN HUM LISPRO 100 UN/ML 3 ML VIAL SUBQ PRN (14:14)
[2018-01-14 14:35] VITALS: BP 144/84
--- NOTE | 2018-01-14 14:51 | ECF H&P BLANK ---
FORMERLY [facility], 1928–1983 H&P UPDATE History of Present Illness Chief Complaint Weak and falling History of Present Illness 72yo male with PMHx significant for alcoholic liver disease. He has continued to drink alcohol. He has been increasingly weak over the past few weeks. He has been falling at home. At present he is somewhat somnolent, but does awaken and answer questions. He is oriented to person and place. He has a history of chronic abdominal pain, but denies any current pain. He denies any fevers or chills. He denies any N/V/diarrhea. He has had a recent UTI, but denies any current dysuria or frequency. He was evaluated in the ER and found to have significant hyponatremia with a sodium of 119. His creatinine is also elevated ( 1.5) above his baseline (0.9). CT scan of abdomen/pelvis shows cirrhotic liver with ascites and some possible thickening of his right colon. He was recommended for admission. History Problems: (1) Morgellons syndrome Status: Chronic (2) Atrial fibrillation Status: Chronic (3) Hypothyroid Status: Chronic (4) Urinary tract infection Status: Resolved (5) Chronic abdominal pain Status: Chronic (6) Type 2 diabetes mellitus treated with insulin Status: Chronic (7) Alcoholic cirrhosis of liver with ascites Status: Chronic (8) History of bilateral knee replacement Status: Chronic (9) Gall bladder disease Status: Chronic (10) Compression fracture of lumbar vertebra Status: Chronic (11) Interstitial pneumonia Status: Resolved (12) Cellulitis Status: Resolved Home Meds Active Scripts Levofloxacin 750 Mg Tab (LEVOFLOXACIN 750 MG TAB) 750 Mg Tablet, 750 MG PO QPM, #2 Prov:ABBIE ZEPEDA MD 01/01/18 Tamsulosin Hcl (TAMSULOSIN HCL) 0.4 Mg Cap.er.24h, 0.4 MG PO QDAY, #30 Prov:ABBIE ZEPEDA MD 01/01/18 Spironolactone (SPIRONOLACTONE) 25 Mg Tablet, 25 MG PO DAILY for 30 Days, TAB 0 Refills Prov:ABBIE ZEPEDA MD 01/01/18 Vitamin B Complex (B COMPLEX) 1 Each Tablet, 1 EACH PO DAILY, #30 TAB 1 Refill Prov:ARNULFO ALCANTARA MD 12/17/17 Diltiazem Hcl (DILTIAZEM 24HR CD) 240 Mg Cap.er.24h, 240 MG PO QDAY, #30 CAP.SR.24H Prov:MANUEL MARTÍNEZ DO 03/19/17 Levothyroxine Sodium (LEVOTHYROXINE SODIUM) 25 Mcg Tablet, 0.025 MG PO QDAY@06, #30 TAB Prov:MANUEL MARTÍNEZ DO 03/19/17 Aspirin (ASPIRIN EC) 81 Mg Tablet.dr, 81 MG PO QDAY, #30 TAB Prov:MANUEL MARTÍNEZ DO 03/19/17 Allergies: Coded Allergies: cephalexin (Verified Allergy, Severe, ANAPHYLAXIS, 01/11/18) NSAIDS (Non-Steroidal Anti-Inflamma (Verified Allergy, Intermediate, ) tizanidine (Verified Allergy, Unknown, 01/11/18) tramadol (Verified Allergy, Unknown, GI DISTRESS, 01/11/18) Patient History: FH: heart attack FATHER FHx: skin cancer MOTHER Hx Smoking: Yes Smoking Status: Former Smoker Exposure to Second Hand Smoke?: Yes Caffeine Intake: Coffee Caffeine/Cups Per Day: 1 cup Hx Alcohol Use: Yes (3 Scotch whisky drinks a day (2 ounces each)) Hx Substance Use Disorder: No Review of Systems Constitutional: No Fever, No Chills, No Night Sweats Neurological: Confusion, Weakness Eyes: No Vision Change, No Loss of Vision ENT: No Hearing Loss Cardiovascular: No Chest Pain, No Palpitations Respiratory: No Shortness of Breath, No Cough Gastrointestinal: No Nausea, No Vomiting, No Diarrhea, No Hematemesis, No Hematochezia, No Melena, Abdominal Pain Genitourinary: No Dysuria, No Hematuria Musculoskeletal: Pain Exam Vital Signs Vital Signs Date Time Temp Pulse Resp B/P (MAP) Pulse Ox O2 Delivery O2 Flow Rate FiO2 01/11/18 13:00 69 8 119/67 (84) 97 01/11/18 09:47 96.7 Room Air General Appearance: Other (Somewhat somnolent, but does awaken and answer questions/jaundiced) Neuro: Other (He does move all four extremities) Eyes: PERRLA, Other (scleral icterus) ENT: Oropharynx Clear Neck: No Masses Cardiovascular: Other (Irregular with distant tones) Respiratory: Clear to Auscultation (poor effort) Chest: No Tenderness GI: Other (distended/fairly taut/diminished BS/he does not report any pain with palapation/fluid wave is present) : No CVA Tenderness Extremities: Warm, Perfused, Edema (2-3+ both LE to lower abdomen) Integumentary: Generalized Fragile Skin Medical Decision Making Data Points Result Diagram: 01/11/18 1047 01/11/18 1047 Item Value Date Time Albumin 3.0 g/dl L 01/11/18 1047 Total Protein 7.4 gm/dl 01/11/18 1047 Alkaline Phosphatase 687 U/L H 01/11/18 1047 Alanine Aminotransferase (ALT/SGPT) 78 U/L H 01/11/18 1047 Aspartate Amino Transf (AST/SGOT) 120 U/L H 01/11/18 1047 Total Bilirubin 8.8 mg/dl H 01/11/18 1047 Magnesium Level 1.7 mg/dl 01/11/18 1047 Calcium Level 8.5 mg/dl 01/11/18 1047 Direct Bilirubin 6.6 mg/dl H 01/11/18 1047 Ammonia 28 UMOL/L 01/11/18 1047 Total Creatine Kinase 76 U/L 01/11/18 1047 Troponin I 0.015 ng/ml 01/11/18 1047 Lipase 126 U/L 01/11/18 1047 Activated Partial Thromboplast Time 39 seconds H 01/11/18 1051 Prothromb Time International Ratio 1.12 01/11/18 1051 Prothrombin Time 14.4 seconds 01/11/18 1051 Serum Alcohol < 10 mg/dl 01/11/18 1047 Acetaminophen Level < 10 ug/ml 01/11/18 1047 Salicylates Level < 10 mg/L 01/11/18 1047 EKG / Imaging Imaging PATIENT NAME: Buster Kaur : 1945 MR: [id number] V: [id number] EXAM DATE: ORDERING PHYSICIAN: JAVY MOMIN TECHNOLOGIST: Location: [facility] Patient: Buster Kaur : 1945 Visit/Account:[id number] Date of Sevice: 01/11/2018 CT BRAIN WITHOUT CONTRAST CLINICAL INDICATION: [place] COMPARISON: March 16, 2017. TECHNIQUE: Contiguous axial CT images of the brain were obtained without IV contrast. Sagittal and coronal reformatted images were also performed. One of the following dose optimization techniques was utilized in the performance of this exam: Automated exposure control; adjustment of the mA and/ or kV according to the patient's size; or use of an iterative reconstruction technique. Specific details can be referenced in the facility's radiology CT exam operational policy. RESULT: BRAIN: Prominence of the ventricles and sulci is consistent with atrophy. There are areas of low attenuation in the periventricular and subcortical white matter which are nonspecific, but suggestive of chronic microvascular ischemic change. The brainstem and cerebellum appear normal. The basilar cisterns appear normal. There is no mass, acute infarct, hemorrhage or shift of midline. Vascular atherosclerotic calcifications are present. PARANASAL SINUSES & MASTOIDS: Well aerated. SKULL BASE & CRANIUM: Visualized osseous structures are intact. SOFT TISSUES: No soft tissue swelling or hematoma is appreciated. IMPRESSION: 1. No acute findings. 2. Findings of advanced chronological age. Report Dictated By: Davi Bañuelos MD at 01/11/2018 11:46 AM Report E-Signed By: Davi Bañuelos MD at 01/11/2018 11:48 AM WSN:[id number] PATIENT NAME: Buster Kaur : 1945 MR: [id number] V: [id number] EXAM DATE: [id number] ORDERING PHYSICIAN: JAVY MOMIN TECHNOLOGIST: Location: [facility] Patient: Buster Kaur : 1945 Visit/Account:[id number] Date of Sevice: 01/11/2018 CHEST SINGLE AP Indication: Falls.. Comparison: December 15, 2017. Findings: Heart size within normal limits. There is no focal infiltrate or lobar consolidation. Chronic interstitial changes with mild chronic appearing elevation of the right hemidiaphragm. Low lung volumes. No pneumothorax or pleural effusion. IMPRESSION: 1. Low lung volumes with chronic interstitial changes. No definitive acute cardiopulmonary process. No significant change since prior radiograph. Report Dictated By: Davi Bañuelos MD at 01/11/2018 11:45 AM Report E-Signed By: Davi Bañuelos MD at 01/11/2018 11:46 AM WSN:[id number] PATIENT NAME: Buster Kaur : 1945 MR: [id number] V: [id number] EXAM DATE: ORDERING PHYSICIAN: JAVY MOMIN TECHNOLOGIST: Location: [facility] Patient: Buster Kaur : 1945 Visit/Account:[id number] Date of Sevice: 01/11/2018 CT abdomen and pelvis without contrast Indication: Fall. Comparison: 12/02/2017 Technique: Axial CT images are obtained through the abdomen and pelvis. Reformatted coronal and sagittal images were reviewed. IV contrast was not administered. One of the following dose optimization techniques was utilized in the performance of this exam: Automated exposure control; adjustment of the mA and/ or kV according to the patient's size; or use of an iterative reconstruction technique. Specific details can be referenced in the facility's radiology CT exam operational policy. Findings: Lower lung armendariz: Right-sided gynecomastia noted. There is a small left pleural effusion. Fluid attenuation is seen within the distal esophagus which may reflect gastroesophageal reflux in the appropriate setting. Calcification seen near the aortic valve and calcifications involve the coronary arteries. Atelectasis involves both lung bases. Evaluation of the solid organs of the abdomen is limited without IV contrast. Liver: The liver appears somewhat shrunken with an enlarged caudate lobe and with lobulated contours. Liver is heterogeneous in attenuation. Extensive areas of fatty liver were seen on the prior contrast-enhanced study. Correlate for underlying cirrhosis. There is a large volume of abdominal and pelvic ascites. This has increased significantly in volume since the prior exam. Biliary: Gallbladder is contracted. No biliary dilatation. Pancreas: Normal appearance. Spleen: No evidence of splenomegaly. Adrenal glands: Unremarkable. Kidneys / retroperitoneum: No evidence of nephrolithiasis or hydronephrosis Bowel / peritoneum / mesenteries: Wall thickening suggested of the right colon and transverse colon. This is nonspecific finding and could be related to portal colopathy in the setting of cirrhosis and portal venous hypertension. A right-sided colitis cannot be excluded. No free air. No evidence for bowel obstruction. Lymph node assessment: Evaluation for adenopathy is limited without IV contrast. No gross adenopathy seen in the retroperitoneum or the mesentery. Pelvic structures: Appear unremarkable. Vessels: Moderate to severe atherosclerotic calcifications seen throughout a nonaneurysmal abdominal aorta and branches. Musculoskeletal / Body wall: Superior endplate compression at L4 is unchanged. This may represent a Schmorl's node rather than a compression fracture. Mild hip joint osteoarthritis. There is degenerative disc disease and facet osteoarthritis of the lumbar spine. No acute fracture deformity is seen in this patient with reported falls. There is diffuse body wall edema. IMPRESSION: 1. Abnormal appearance of the liver which appears somewhat shrunken with lobulated contours with an appearance most compatible with liver cirrhosis. 2. Large volume of abdominal and pelvic ascites which is increased in volume since the previous exam. 3. Suspected wall thickening of the right colon and transverse colon. In the setting of liver cirrhosis, this could represent portal colopathy. Possibility of a right-sided colitis cannot be excluded. No evidence of free air. 4. Diffuse atherosclerosis. 5. Small left pleural effusion. Report Dictated By: Ranjit Palacios at 01/11/2018 12:15 PM Report E-Signed By: Ranjit Palacios at 01/11/2018 12:25 PM WSN:[id number] Assessment and Plan Problems: (1) Hyponatremia Status: Acute Assessment & Plan: Most likely multifactorial including his end-stage liver disease and spironolactone use. Will admit to medical floor, place on gentle IV NS infusion, fluid restriction, stop spironolactone. Monitor lab closely. (2) Alcoholic cirrhosis of liver with ascites Status: Chronic Assessment & Plan: End-stage. He continues to drink as well. His prognosis is extremely poor. (3) Type 2 diabetes mellitus treated with insulin Status: Chronic Assessment & Plan: Will place on ADA diet, monitor glucoses and use SSI as needed. (4) Hypothyroid Status: Chronic Assessment & Plan: Continue replacement therapy with L-thyroxine. (5) Urinary tract infection Status: Resolved Assessment & Plan: Recent UTI. Will check UA and culture. Treat if needed. (6) Acute renal failure (ARF) Status: Acute Assessment & Plan: Probably due to intravascular volume depletion. He will get gentle IV fluids. Watch lab closely. Venous Thromboembolism Antithrombotics Is Pt On Any Antithrombotics?: No Prophylaxis Tx Contraindicated Pharmacological Contraindicati: Liver Disease Exam Sepsis Risk: No Definite Risk ARNULFO ALCANTARA MD Jan 11, 2018 14:37 <Electronically signed by ARNULFO ALCANTARA MD> D/ [id number] [facility]/ CC: Patient will be admitted to [facility] for ongoing rehabilitative therapy. ARNULFO ALCANTARA MD Jan 14, 2018 14:51
--- NOTE | 2018-01-14 14:55 | Consultant Pharmacy Review ---
Hand Alterations Tailor Review Medication Review Do All Mecications have a Diag: Yes Beers Criteria Medication 2014 Sliding Scale Insulin: Slidin Scale Insulin (Insulin dependent diabetes) Pneumococcal Vaccine HX Pneumo Vac ([id number]): Yes (2013) Comments Regarding the Review Patient had influenza vaccination this flu season and had the Prevnar 13 in 2013 so would be a candidate for Pneumovax if so chooses this admission. MD Notified? MD Notified?: No LUIS CARLOS PAINTING Jan 14, 2018 14:55
--- NOTE | 2018-01-14 15:15 | OT ECF NOTE ---
Type of Note: Initial Note Primary Medical Diagnosis: Generalized weakness s/p hospital admission for hyponatremia/weakness/frequent falls Occupational Therapy Evaluation Date: 01/14/18 SUBJECTIVE: Prior Hospitalization: H 01/11/18 thru 01/14/18 Prior Level of Function: Prior to admission pt reports he was having increased difficulty with donning socks and walking. Pt's spouse present for evaluation and reporting pt spent majority of day in his recliner and required assistance for sit<>stands, all ADLs/IADLs. Prior Living Status: Apartment, Spouse Community Services: No known needs Home Accessibility: Stairs with rails, Tub/shower combination Equipment Owned: Cane, Tub/shower chair Medical Complications/Past Medical History: Extensive medical history. Please refer to EMR. Psychosocial Support: Supportive spouse Pain Scale (0-10): 7/10 upon initial evaluation. Pain located in abdomen, ice applied. OBJECTIVE: Strength: MMT: Right Left Shoulder Flexion [*] [*] Elbow Flexion [*] [*] Wrist Extension [*] [*] Silk Soaker [*] [*] (5= normal, 4= good, 3= fair, 2= poor, 1= trace) ROM: Both upper extremities, Minimally limited Sensation: Neuropathy in bilateral lower extremities Functional Transfer: Assistive Device: EZ/Patient assisted lift Transfer Ability: Maximum assistance, 3 or more person assist ADL: Upper body dressing: Assistive device: Upper body dressing ability: N/T Lower body dressing: Assistive device: May benefit from LB AE education Lower body dressing ability: Total assistance Toileting: Assistive device: EZ lift Toileting ability: Total assistance Grooming/hygiene: Assistive device: Grooming ability: N/T Bathing: Assistive device: Bathing ability: N/T Standardized Assessment: Fadi Index of Activities of Daily Livin/20 at initial evaluation (01/14). ASSESSMENT: Per pt and spouse, pt has been getting progressively more weak over the past few months and the spouse assists with all transfers, ADLs/IADLs. Pt is oriented to self, situation, and place. Not oriented to date and frequently distracted throughout evaluation. SpO2 WNL on room air. The pt has 17 steps into apartment and would benefit from AE recommendations (extended tub bench/sock aide/grab bars). Pt would benefit from skilled OT services to improve activity tolerance and optimize independence for engagement in ADLs prior to discharge. Problem List/Current Limitations: Pain Decreased activity tolerance Decreased sensation Generalized weakness Poor safety awareness Decreased problem solving Short Term Goals: 1) Pt will be SBA UB/LB dressing. 2) Pt will be SBA toileting. 3) Pt will be SBA grooming/hygiene seated. 4) Pt will be Min A shower task. 5) Pt and spouse will bed educated on appropriate AE recommendations. 6) Pt Fadi Index of ADLs score will increase by 2 points. Alf Goals: Return home with assist from spouse and HH services Patient Goals: "Improve my stability and walking" Rehabilitation Prognosis: Good Barriers to Discharge: Pain, Medical hx, Motivation PLAN: The patient will benefit from skilled occupational therapy services 5 times per week for 2 weeks including: Ther ex ADL training Safety training Ther act IADL training Transfer training Adaptive equip training Bed mobility Energy conservation Thank you for this referral. If you have any questions, concerns, or comments about this report or plan, please contact me at . Patrica Saunders MS, OTR/L Occupational Therapist [facility]
[2018-01-15] MEDS: LEVOTHYROXINE SOD 0.150 MG TAB PO SCH (06:19)
[2018-01-15 09:18] VITALS: BP 142/87
--- NOTE | 2018-01-15 13:52 | Medical Nutrition Therapy ---
Nutrition Anthropometrics Height (Inches): 72.00 Height (Calculated Centimeters: 182.913068 Weight (Pounds): 276 Weight (Calculated Kilograms): 125.191 BMI Calculated: 36.07 Ramy Nutrition Score: Adequate Ramy Nutrition Risk Score: 15 Dietary Referral Nutrition Risk Factors: Unplanned Loss >10lbs Nutrition Risk Comment: Physical Findings Physical Appearance: Obese BMI 30-39 Skin Appearance Skin Appearance: Edema Edema Location Modifier: Both Edema Location: Lower Extremity Type of Edema: Degree of Edema: 1+ Gastrointestinal Symptoms GI Symtoms: Bloating Tube Present: Bowel Sounds: Recent Bowel Pattern: Stool Characteristics: Nutritional Diagnosis Nutritional Risk Acuity 2: Liver Cirrhosis Nutritional Risk Acuity 3: Fair Appetite Past Medical History: Morgellon's syndrome, chronic abd pain, T2DM, a-fib, liver cirrhosis, seizures, HTN, COPD,hyponatremia Nutritional Acuity: 2-Moderate Nutrition Problem/Etiology/Sym: Excessive alcohol intake related to alcohol addiction as evidenced by liver cirrhosis. Energy Requirement: 2604 (MSJ AF 1.3) Protein Requirement: 96 (.8g /kg) Fluid Requirement: 1500 (Fluid Restriction) Diet Type: Diabetic, Fluid Restricted Nutrition Intervention: Cont diet as ordered, Encourage intake Nutrition Monitoring & Eval Nutrition Goals: Eat 50-100% Meal RD Patient Assessment Time: [address] Assessment Type: RD Assessment Patient Nutrition Acuity: 2-Moderate Follow Up Date: Jan 20, 2018 Nutritional Comment: 3/)Pt admitted to med floor for hyponatremia. Transferred to ECF 01/14/2018. PMH Morgellons syndrome, Atrial fibrillation,Hypothyroid,Urinary tract infection, Chronic abdominal pain, Type 2 diabetes mellitus treated with insulin, Alcoholic cirrhosis of liver with ascites, History of bilateral knee replacement, Gall bladder disease, Compression fracture of lumbar vertebra,Interstitial pneumonia, Cellulitis. Labs: Glu 116. Diabetic/Fluid restricted diet po intake 50%. Will monitor labs, weight, po intake. IONA CATES Jan 15, 2018 11:55
[2018-01-15 16:20] VITALS: BP 141/95
--- NOTE | 2018-01-15 16:27 | PT ECF NOTE ---
Type of Note: Initial Note Primary Medical Diagnosis: hyponatremia Physical Therapy Evaluation Date: 01/15/18 SUBJECTIVE: Prior Hospitalization: [facility] acute x multiple admissions Prior Level of Function: Pt lives in an apartment with his spouse and has 17 stairs to enter. Pt increasingly unable to perform functional mobility safely reporting multiple falls (per medical record) and has been requiring increased amount of assistance with ADLs Prior Living Status: Apartment, Spouse Community Services: No known needs Home Accessibility: Stairs with rails, Tub/shower combination Equipment Owned: Cane, Tub/shower chair Medical Complications/Past Medical History: Extensive, see [place] Psychosocial Support: Pt lives with his Pain Scale (0-10): see below OBJECTIVE: Pt experiencing abdominal "spasms" with attempted sit>stand transfer. Pt.'s O2 sats were at 88% on 2 L of O2 and HR was at 117. Pt returned to reclined position and declined further attempts at mobility due to pain associated with abdominal spasms. Pt reports spasms for 40 years. ASSESSMENT: Pt presents with decreased tolerance to functional activity, multiple falls prior to hospital admission, and decreased independence with ADLs. Pt will benefit from skilled PT for strengthening, functional mobility and balance training, and increasing tolerance to functional activities. Problem List/Current Limitations: Pain, Decreased activity tolerance, Decreased strength, Generalized weakness Short Term Goals: 1. SBA bed mobility. 2. SBA transfers. 3. SBA gait x50' with appropriate assistive device. 4. Ascend/descend 1 flight of stairs CGA. Stamps Or Coins Salesperson Goals: Return to prior living arrangements. Patient Goals: When questioned, Pt did not identify goal upon eval due to pain with muscle spasms. Will continue to evaluate for Pt goals. Rehabilitation Prognosis: Poor Barriers for Discharge: Declining health condition. PLAN: The patient will benefit from skilled physical therapy services 5 times per week for 2 weeks including: Therapeutic Exercise, Therapeutic Activities, Transfer Training, Gait Training, Stair Training, Manual Therapy, ADL's, Safety Training, Neuromuscular Re-educ., Pt/Caregiver Training, Bed Mobility Thank you for this referral. If you have any questions, concerns, or comments about this report or plan, please contact me at . Melisa Dyer, PT, DPT, GCS MTDD
[2018-01-16] MEDS: LEVOTHYROXINE SOD 0.150 MG TAB PO SCH (06:38)
[2018-01-16 08:37] VITALS: BP 136/71
[2018-01-16 16:30] VITALS: BP 165/86
--- NOTE | 2018-01-16 18:09 | Miscellaneous Provider Note ---
Miscellaneous Provider Note Note The patient told staff that he wanted to leave AMA and that his was getting him. He just wants to be home. Neuro - knows where he is. Knows month and year. Knows the events of the hospitalization. He is calm. I informed him that he is very weak and is at high risk for having falls and not being able to take care of himself. He expressed understanding. I also told him that his insurance may not pay for his hospitalization if he leaves [place]. He expressed understanding. The patient has the capacity to make medical decisions, so if his is willing to take him, he can go home. ABBIE ZEPEDA MD Jan 16, 2018 18:09
[2018-01-17] MEDS: LEVOTHYROXINE SOD 0.150 MG TAB PO SCH (05:40)
[2018-01-17 08:06] VITALS: BP 142/77
[2018-01-17 17:45] VITALS: BP 139/93
[2018-01-18] MEDS: LEVOTHYROXINE SOD 0.150 MG TAB PO SCH (05:26)
[2018-01-18 08:20] VITALS: BP 158/98
[2018-01-18 17:04] VITALS: BP 155/89
[2018-01-19] MEDS: LEVOTHYROXINE SOD 0.150 MG TAB PO SCH (05:48)
[2018-01-19 07:30] VITALS: BP 131/78
[2018-01-19 16:00] VITALS: BP 131/73
[2018-01-20] MEDS: LEVOTHYROXINE SOD 0.150 MG TAB PO SCH (05:40)
[2018-01-20 09:00] VITALS: BP 135/74
--- NOTE | 2018-01-20 09:38 | Medical Nutrition Therapy ---
Nutrition Anthropometrics Height (Inches): 72.00 Height (Calculated Centimeters: 182.442608 Weight (Pounds): 276 Weight (Calculated Kilograms): 125.191 BMI Calculated: 36.07 Ramy Nutrition Score: Adequate Ramy Nutrition Risk Score: 15 Dietary Referral Nutrition Risk Factors: Unplanned Loss >10lbs Nutrition Risk Comment: Nutritional Diagnosis Nutritional Risk Acuity 2: Liver Cirrhosis Nutritional Risk Acuity 3: Fair Appetite Past Medical History: Morgellon's syndrome, chronic abd pain, T2DM, a-fib, liver cirrhosis, seizures, HTN, COPD,hyponatremia Nutritional Acuity: 2-Moderate Nutrition Problem/Etiology/Sym: Excessive alcohol intake related to alcohol addiction as evidenced by liver cirrhosis. Energy Requirement: 2604 (MSJ AF 1.3) Protein Requirement: 96 (.8g /kg) Fluid Requirement: 1500 (Fluid Restriction) Diet Type: Diabetic, Fluid Restricted Nutrition Intervention: Cont diet as ordered, Encourage intake Nutrition Monitoring & Eval Nutrition Goals: Eat 75-100% Meal Nutrition Follow-Up: Fair Intake RD Patient Assessment Time: [address] Assessment Type: RD Re-Assessment Patient Nutrition Acuity: 2-Moderate Follow Up Date: Jan 27, 2018 Nutritional Comment: 3/1)Pt admitted to med floor for hyponatremia. Transferred to ECF 01/14/2018. PMH Morgellons syndrome, Atrial fibrillation,Hypothyroid,Urinary tract infection, Chronic abdominal pain, Type 2 diabetes mellitus treated with insulin, Alcoholic cirrhosis of liver with ascites, History of bilateral knee replacement, Gall bladder disease, Compression fracture of lumbar vertebra,Interstitial pneumonia, Cellulitis. Labs: Glu 116. Diabetic/Fluid restricted diet po intake 50%. Will monitor labs, weight, po intake. 01/20 Pt cont on regular diet. Intake averaged 56% past 3 days. BG ranging WNR or mildly elevated up to 130's. No new wt. May see some wt fluctuation r/t ascites. Will cont to monitor and encourage intake. KATHLEEN RAMACHANDRAN Jan 20, 2018 09:37
[2018-01-20 15:40] VITALS: BP 153/93
[2018-01-21] MEDS: LEVOTHYROXINE SOD 0.150 MG TAB PO SCH (05:52)
[2018-01-21 08:03] VITALS: BP 119/65
--- NOTE | 2018-01-21 11:15 | Hospitalist Progress Note ---
Subjective Progress Notes Subjective The patient has not been progressing well with PT/OT. Physical Exam Vital Signs Date Time Temp Pulse Resp B/P (MAP) Pulse Ox O2 Delivery O2 Flow Rate FiO2 01/21/18 10:39 96 Room Air 01/21/18 08:03 97.1 95 18 119/65 (83) 1.0 Intake and Output 01/22/18 07:00 Intake Total 340 ml Balance 340 ml Intake Oral 340 ml General Appearance: Alert, Awake, No Acute Distress Neuro: Other (Some confusion at times.) Cardiovascular: Regular Rate and Rhythm Respiratory: Clear to Auscultation GI: Other (Distended. He jumps with palpation when not distracted. With distraction I can palpate his entire abdomen without pain. This was done several times.) Extremities: Warm, Perfused, Other (1+ edema both LE.) Integumentary: Other (Scaling lesion R forehead.) Psych: Other (Confused at times. Poor insight.) Result Diagram: 01/21/18 0917 Assessment and Plan Problems: (1) Alcoholic cirrhosis of liver with ascites Status: Chronic Assessment & Plan: End-stage liver disease. He continued to drink as well prior to admission. His prognosis is extremely poor. This was discussed with the patient and his . He seemed to understand fairly well that if he continued to drink he would certainly worsen and would definitely not be a candidate for transplant. Even if he did stop drinking now, he would probably not have significant improvement and would probably continue to worsen. He was transferred to [facility] to work with PT/OT but did not make progress and refused to participate many times. This was discussed with his and she indicated she could not care for him at home. Referrals have been made for placement at SNF versus [facility]. (2) Hyponatremia Status: Acute Assessment & Plan: Most likely multifactorial including his end-stage liver disease and spironolactone use. Sodium is 130 this am. Continue fluid restriction. Watch labs periodically. (3) Type 2 diabetes mellitus treated with insulin Status: Chronic Assessment & Plan: ADA diet. All glucoses less than 150 except one. Will change glucoses to bid. (4) Hypothyroid Status: Chronic Assessment & Plan: Continue replacement therapy with L-thyroxine. (5) Urinary tract infection Status: Resolved Assessment & Plan: Recent UTI. UA and culture negative. (6) Acute renal failure (ARF) Status: Acute Assessment & Plan: Probably due to intravascular volume depletion. Treated with IV fluids and has resolved. Time Spent on Plan of Care: < 30 min ALEC ALCANTARA MD Jan 21, 2018 11:15
[2018-01-21 16:15] VITALS: BP 152/89
[2018-01-22] MEDS: LEVOTHYROXINE SOD 0.150 MG TAB PO SCH (05:58)
[2018-01-22 07:35] VITALS: BP 139/73
--- NOTE | 2018-01-22 10:43 | Hospitalist Depart ---
Discharge Summary Reason for Hosp/Final Diag: (1) Alcoholic cirrhosis of liver with ascites Status: Chronic Hospital Course & Plan: End-stage liver disease. He continued to drink as well prior to admission. His prognosis is extremely poor. This was discussed with the patient and his . He seemed to understand fairly well that if he continued to drink he would certainly worsen and would definitely not be a candidate for transplant. Even if he did stop drinking now, he would probably not have significant improvement and would probably continue to worsen. He was transferred to [facility] to work with PT/OT but did not make progress and refused to participate many times. This was discussed with his and she indicated she could not care for him at home. He was accepted at the [facility] and was transferred 01/22. (2) Hyponatremia Status: Acute Hospital Course & Plan: Most likely multifactorial including his end-stage liver disease and spironolactone use. (3) Type 2 diabetes mellitus treated with insulin Status: Chronic Hospital Course & Plan: ADA diet. All glucoses less than 150 except one during his stay on ECF. (4) Hypothyroid Status: Chronic Hospital Course & Plan: He was continued replacement therapy with L-thyroxine. (5) Urinary tract infection Status: Resolved Hospital Course & Plan: Recent UTI. UA and culture negative. (6) Acute renal failure (ARF) Status: Acute Hospital Course & Plan: Probably due to intravascular volume depletion. Treated with IV fluids and has resolved. Departure Weight (Pounds): 276 Weight (Ounces): 2.0 Result Diagram: 01/21/18 0913 Condition: No Change Discharge: Hospice Time Spent: < 30 min Discharge Instructions Home Meds Active Scripts Insulin Lispro (HUMALOG) 100 Unit/1 Ml Vial, 1-5 UNIT SUBQ SS Y for SLIDING SCALE INSULIN for 30 Days, VIAL Prov:ARNULFO ALCANTARA MD 01/14/18 Levothyroxine Sodium (SYNTHROID) 150 Mcg Tablet, 0.15 MG PO QDAY@06 for 30 Days , TAB Prov:ARNULFO ALCANTARA MD 01/14/18 Diet: Regular Activity: As Tolerated Venous Thromboembolism VTE Risk Physician Assess for VTE Risk: Yes Patient's VTE Risk: Low VTE Diagnostic Test 2 Days Prior to Admit: No Antithrombotics Is Pt On Any Antithrombotics?: No Prophylaxis Tx Contraindicated Pharmacological Contraindicati: Liver Disease ALEC ALCANTARA MD Jan 22, 2018 10:43
--- NOTE | 2018-01-22 11:40 | OT ECF NOTE ---
Type of Note: Discharge Note Primary Medical Diagnosis: Generalized weakness s/p hospital admission for hyponatremia/weakness/frequent falls Occupational Therapy Evaluation Date: 01/14/18 SUBJECTIVE: Prior Hospitalization: H 01/11/18 thru 01/14/18 Prior Level of Function: Prior to admission pt reports he was having increased difficulty with donning socks and walking. Pt's spouse present for evaluation and reporting pt spent majority of day in his recliner and required assistance for sit<>stands, all ADLs/IADLs. Prior Living Status: Apartment, Spouse Community Services: No known needs Home Accessibility: Stairs with rails, Tub/shower combination Equipment Owned: Cane, Tub/shower chair Medical Complications/Past Medical History: Extensive medical history. Please refer to EMR. Psychosocial Support: Supportive spouse Pain Scale (0-10): 7/10 upon initial evaluation. Pain located in abdomen, ice applied. 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 ASSESSMENT: Per pt and spouse, pt has been getting progressively more weak over the past few months and the spouse assists with all transfers, ADLs/IADLs. Pt is oriented to self, situation, and place. Not oriented to date and frequently distracted throughout evaluation. SpO2 WNL on room air. The pt has 17 steps into apartment and would benefit from AE recommendations (extended tub bench/sock aide/grab bars). Pt would benefit from skilled OT services to improve activity tolerance and optimize independence for engagement in ADLs prior to discharge. Problem List/Current Limitations: Pain Decreased activity tolerance Decreased sensation Generalized weakness Poor safety awareness Decreased problem solving Short Term Goals: *Pt. will d/c to [facility] for end of life care. 1) Pt will be SBA UB/LB dressing. 2) Pt will be SBA toileting. 3) Pt will be SBA grooming/hygiene seated. 4) Pt will be Min A shower task. 5) Pt and spouse will bed educated on appropriate AE recommendations. 6) Pt Fadi Index of ADLs score will increase by 2 points. Practice Consultant Goals: Return home with assist from spouse and HH services Patient Goals: "Improve my stability and walking" Rehabilitation Prognosis: poor Barriers to Discharge: Pain, Medical hx, Motivation PLAN: The patient will d/c to [facility] for end of life care. Thank you for this referral. If you have any questions, concerns, or comments about this report or plan, please contact me at . Norma Teran, OTR/L Occupational Therapist [facility]
--- NOTE | 2018-01-22 11:48 | PT ECF NOTE ---
Type of Note: Discharge Summary Primary Medical Diagnosis: hyponatremia Physical Therapy Evaluation Date: 01/15/18 SUBJECTIVE: Prior Hospitalization: H acute x multiple admissions Prior Level of Function: Pt lives in an apartment with his spouse and has 17 stairs to enter. Pt increasingly unable to perform functional mobility safely reporting multiple falls (per medical record) and has been requiring increased amount of assistance with ADLs Prior Living Status: Apartment, Spouse Community Services: No known needs Home Accessibility: Stairs with rails, Tub/shower combination Equipment Owned: Cane, Tub/shower chair Medical Complications/Past Medical History: Extensive, see Right On Interactive Psychosocial Support: Pt lives with his Pain Scale (0-10): see below OBJECTIVE: Min A bed mobility Min A sit<>stand from bed and chair. CGA to ambulate 5-80' with RW. ASSESSMENT: Pt is transferring to [facility] today. Problem List/Current Limitations: Pain, Decreased activity tolerance, Decreased strength, Generalized weakness Short Term Goals: - No longer appropriate for current DC plan to [facility]. 1. SBA bed mobility. 2. SBA transfers. 3. SBA gait x50' with appropriate assistive device. 4. Ascend/descend 1 flight of stairs CGA. Nursing Home Goals: Return to prior living arrangements. Patient Goals: When questioned, Pt did not identify goal upon eval due to pain with muscle spasms. Will continue to evaluate for Pt goals. Rehabilitation Prognosis: Poor Barriers for Discharge: Declining health condition. PLAN: DC to [facility] Thank you for this referral. If you have any questions, concerns, or comments about this report or plan, please contact me at . Melisa Dyer, PT, DPT, GCS MTDD
== END 2018-01-22 14:10 | disposition hospice, inpatient (51) | DRG 641 ==
LOC: ECF 13:15
PROVIDERS: ADMIT Internal Medicine; ATTEND Internal Medicine
DX: E87.1 Hypo-osmolality and hyponatremia (principal); K70.31 Alcoholic cirrhosis of liver with ascites; E11.9 Type 2 diabetes mellitus without complications; G89.29 Other chronic pain; E03.9 Hypothyroidism, unspecified; E86.9 Volume depletion, unspecified; F10.20 Alcohol dependence, uncomplicated; I48.2 Chronic atrial fibrillation; T50.0X5A Adverse effect of mineralocorticoids and their antagonists, initial encounter; Z79.4 Long term (current) use of insulin; Z88.8 Allergy status to other drugs, medicaments and biological substances; Z87.891 Personal history of nicotine dependence; I25.2 Old myocardial infarction
CPT/HCPCS: 36415; 36416; 82040; 82247; 82248; 82310; 82374; 82435; 82565; 82947; 82948; 84075; 84132; 84155; 84295; 84450; 84460; 84520; 97163; 97165

== ENCOUNTER → 2018-01-22 | Outpatient (CLI) | payer MEDICAID, MEDICARE, OTHER ==
[2017-12-31 09:29] VITALS: BMI 36.1
== END ==
LOC: AMB 14:00
PROVIDERS: ATTEND Nurse Practitioner
DX: K74.60 Unspecified cirrhosis of liver (principal); R18.8 Other ascites; N19 Unspecified kidney failure
CPT/HCPCS: A0425; A0428